=== PATIENT | female | born 1960 | race Caucasian/White ===

== ENCOUNTER → 2018-10-23 11:42 | Outpatient (CLI) | payer BC, SELFPAY ==
--- NOTE | 2018-10-23 11:52 | XR_ITS ---
XR chest 2V HISTORY: Left-sided chest pain, smoker ITS.REASON: PNEUMONIA ORDERING PHYSICIAN: Wendy Lala PATIENT AGE: 58 years COMPARISON: 11/07/2016 FINDINGS: The cardiomediastinal silhouette and pulmonary vascularity are within normal limits. The lungs are clear without infiltrates, suspicious nodules, or pleural effusions. There are old left-sided rib fractures No acute bony abnormalities. IMPRESSION: No change with no acute finding
== END ==
LOC: RAD 11:45
PROVIDERS: PCP Nurse Practitioner Family; Visit Provider Nurse Practitioner Family
DX: J18.1 Lobar pneumonia, unspecified organism (principal)
CPT/HCPCS: 71046

== ENCOUNTER → 2019-11-01 11:52 | Outpatient (CLI) | payer BC, SELFPAY ==
--- NOTE | 2019-11-01 | XR_ITS ---
PROCEDURE: XR FOOT LT MIN 3V CLINICAL INDICATION: Foot pain COMPARISON: No exams were available for comparison FINDINGS: No fracture or dislocation. No lytic or blastic change. There is normal mineralization. The joint spaces are well-preserved. No significant degenerative/arthritic changes. No erosive changes evident. Other findings:None. IMPRESSION: No acute findings. Dictated by: El Jackson MD 11/01/2019 12:18 Electronically signed by El Jackson MD in [facility] 11/01/2019 12:18
== END ==
LOC: RAD 11:58
PROVIDERS: PCP Family Medicine; Visit Provider Nurse Practitioner Family
DX: M79.672 Pain in left foot (principal)
CPT/HCPCS: 73630

== ENCOUNTER → 2019-11-12 15:45 | Outpatient (CLI) | payer BC, SELFPAY ==
[2019-11-12 16:43] LABS: Basophils # 0.1 K/mm3 (0-0.2); Basophils % 0.9 % (0.1-2.0); Eosinophils # 0.2 K/mm3 (0.0-0.4); Eosinophils % 2.6 % (0.1-12.0); Hemoglobin 14.6 g/dL (12.2-16.2); Lymphocytes # 1.8 K/mm3 (0.7-4.5); Lymphocytes % 26.4 % (10-50); Mean Corpuscular HGB Conc 33.1 g/dL (31.8-35.4); Mean Corpuscular Hemoglobin 30.9 pg (27.0-31.2); Mean Corpuscular Volume 93.1 fl (81-99); Mean Platelet Volume 8.2 fl (7.4-10.4); Monocytes # 0.5 K/mm3 (0.1-1.0); Monocytes % 6.7 % (1.7-9.3); Neutrophils # 4.3 K/mm3 (1.8-7.8); Neutrophils % 63.4 % (37.0-80.0); Platelet Count 247 K/mm3 (142-424); Red Blood Count 4.72 M/mm3 (4.20-5.40); Red Cell Distribution Width 12.4 % (11.5-17.5); White Blood Count 6.8 K/mm3 (4.8-10.8)
[2019-11-12 18:44] LABS: Chloride 103 mmol/L (98-107); Potassium 4.1 mmoL/L (3.5-5.1); Sodium 138 mmol/L (136-145)
[2019-11-12 18:47] LABS: Alanine Aminotransferase 20 U/L (12-78); Albumin Level 3.9 g/dl (3.5-5.0); Albumin/Globulin Ratio 1.6 (1.1-1.8); Alkaline Phosphatase 81 U/L (38-126); Anion Gap 9.1 mEq/L (5-15); Aspartate Amino Transferase 26 U/L (14-36); Bilirubin,Total 0.2 mg/dl (0.2-1.3); Blood Urea Nitrogen 15 mg/dl (7-17); Calcium 8.8 mg/dl (8.4-10.2); Carbon Dioxide 30 mmol/L (22.0-30.0); Estimated Glomerular Filt Rate 74 ml/min (>60); GFR (African American) 89 ML/MIN (>60); Globulin 2.5 g/dL (1.3-3.2); Glucose 77 mg/dl (74-100); Magnesium 2.1 mg/dl (1.6-2.3); Total Protein,Serum 6.4 g/dl (6.3-8.2)
[2019-11-12 19:03] LABS: Free T4 (Free Thyroxine) 1.06 ng/dl (0.78-2.19)
== END ==
PROVIDERS: Visit Provider Nurse Practitioner Family
DX: R42 Dizziness and giddiness (principal); R11.0 Nausea
CPT/HCPCS: 36415; 80053; 83735; 84439; 84443; 85025

== ENCOUNTER → 2019-12-27 09:57 | Outpatient (CLI) | payer BC, SELFPAY ==
--- NOTE | 2019-12-27 10:12 | XR_ITS ---
PROCEDURE: XR WRIST RT MIN 3V CLINICAL INDICATION: SWELLING , PAINFUL WRIST/HAND COMPARISON: No exams were available for comparison FINDINGS: There is no acute fracture dislocation or other focal bony lesion. Joint spaces are preserved. IMPRESSION: No acute findings. Dictated by: Radu Loredo 12/27/2019 10:30 Electronically signed by Radu Loredo in [facility] 12/27/2019 10:30
--- NOTE | 2019-12-27 10:12 | XR_ITS ---
PROCEDURE: XR HAND RT MIN 3V CLINICAL INDICATION: SWELLING , PAINFUL WRIST/HAND COMPARISON: No exams were available for comparison FINDINGS: No fracture or dislocation. There is nonspecific sclerosis of the distal phalanx of the 1st digit. This could represent osteoblastic activity associated with old healed fracture or benign bone island. There is normal mineralization. The joint spaces are well-preserved. No significant degenerative/arthritic changes. No erosive changes evident. Other findings:None. IMPRESSION: No acute findings. Dictated by: Radu Loredo 12/27/2019 10:28 Electronically signed by Radu Loredo in [facility] 12/27/2019 10:28
[2019-12-27 11:11] LABS: Basophils # 0.1 K/mm3 (0-0.2); Basophils % 0.8 % (0.1-2.0); Eosinophils # 0.2 K/mm3 (0.0-0.4); Eosinophils % 2.2 % (0.1-12.0); Hematocrit 45.4 % (37.0-47.0); Lymphocytes # 1.7 K/mm3 (0.7-4.5); Lymphocytes % 19.7 % (10-50); Mean Corpuscular Hemoglobin 30.2 pg (27.0-31.2); Mean Corpuscular Volume 91.4 fl (81-99); Mean Platelet Volume 8.4 fl (7.4-10.4); Monocytes # 0.5 K/mm3 (0.1-1.0); Monocytes % 5.8 % (1.7-9.3); Neutrophils # 6.3 K/mm3 (1.8-7.8); Neutrophils % 71.6 % (37.0-80.0); Platelet Count 240 K/mm3 (142-424); Red Blood Count 4.96 M/mm3 (4.20-5.40); Red Cell Distribution Width 12.2 % (11.5-17.5); White Blood Count 8.8 K/mm3 (4.8-10.8)
[2019-12-27 11:43] LABS: Erythrocyte Sedimentation Rate 14 mm/hr (0-30)
[2019-12-27 11:45] LABS: Uric Acid 3.5 mg/dl (2.5-6.2)
[2019-12-28 07:26] LABS: RA Latex Turbid. 13.4 IU/mL (0.0-13.9)
[2019-12-29 07:48] LABS: Antinuclear Antibodies, IFA Negative (.)
== END ==
LOC: RAD 10:02
PROVIDERS: PCP Nurse Practitioner Family; Visit Provider Nurse Practitioner Family
DX: M79.89 Other specified soft tissue disorders (principal); M25.431 Effusion, right wrist; M25.50 Pain in unspecified joint
CPT/HCPCS: 36415; 73110; 73130; 84550; 85025; 85651; 86038; 86140; 86431

== ENCOUNTER → 2020-01-09 13:09 | Outpatient (CLI) | payer BC, SELFPAY ==
--- NOTE | 2020-01-09 13:13 | CT_ITS ---
PROCEDURE: CT SOFT TISSUE NECK WO CON CLINICAL HISTORY: LYMPHADENOPATHY Infection in the right neck with edema, lymphadenopathy COMPARISON: No exams were available for comparison TECHNIQUE: Oral Contrast: None IV Contrast: None Axial images obtained with sagittal and coronal reformats. All CT scans at the facility use one or more dose reduction, viz: automated exposure control, ma/kV adjustment per patient size (including targeted exams where dose is matched to indication, i.e. head), or iterative reconstruction technique. FINDINGS: There are few scattered small cervical lymph nodes. No dominant adenopathy is evident. No abscess or abnormal fluid collections. Thyroid gland slightly enlarged on both sides. There is a slightly hypodense 18 mm nodule in the left lobe for which ultrasound is suggested for further evaluation. There is some nodularity also of the right thyroid gland. No obvious nasopharyngeal or oral pharyngeal mass. The epiglottis and glottic and subglottic region have an unremarkable appearance. The lung apices are clear. Centrilobular emphysematous changes are present. No acute bony anomalies. There are minimal osteoarthritic changes of the right TMJ. Mild degenerative disc disease is present at C5-C6. IMPRESSION: 1. No dominant adenopathy or abscess evident. Her 2. Mildly enlarged thyroid gland with 18 mm nodule in the left lobe for which ultrasound is suggested for further evaluation. 3. Centrilobular emphysema in the lung apices. Dictated by: El Jackson MD 01/10/2020 08:35 Electronically signed by El Jackson MD in [facility] 01/10/2020 08:35
== END ==
LOC: RAD 13:10
PROVIDERS: PCP Nurse Practitioner Family; Visit Provider Nurse Practitioner Family
DX: R59.0 Localized enlarged lymph nodes (principal)
CPT/HCPCS: 70490

== ENCOUNTER → 2020-05-12 08:44 | Outpatient (CLI) | payer BC, SELFPAY ==
--- NOTE | 2020-05-12 08:50 | US_ITS ---
PROCEDURE: US THYROID CLINICAL INDICATION: THYROID NODULE COMPARISON: No exams were available for comparison FINDINGS: Right lobe: Measures 1.6 x 4.2 x 2.5 cm. There is a small hypoechoic cystic-appearing lesion mid pole with internal echoes measuring 0.7 x 0.3 by 0.6 cm and likely a complex cyst. There is an isoechoic solid nodule mid pole measuring 0.9 by 0.9 x 1.3 cm with spongiform appearance, wider than tall and this is tired rads 2. There is a 2nd hypoechoic oval nodule lower pole measuring 1.6 x 0.9 by 1.3 cm with a somewhat heterogenic appearance but with a smooth border and this likely is aTirads 22. Left lobe: The left lobe measures 1.6 x 4.1 x 1.9 cm. There is a dominant heterogenic nodule mid pole measuring 2.2 x 1.3 by 1.9 cm which is basically isoechoic and smooth wall, wider than tall and this is a ti rads 2 Isthmus: The isthmus measures 0.3 cm. Additional findings: IMPRESSION: Normal-sized gland with dominant solid nodules in each lobe as described above. Dictated by: Dr. Vaughn Menchaca MD 05/12/2020 12:57 Dr. Vaughn Menchaca MD in [facility] 05/12/2020 12:57
== END ==
LOC: RAD 08:45
PROVIDERS: PCP Nurse Practitioner Family; Visit Provider Nurse Practitioner Family
DX: E04.1 Nontoxic single thyroid nodule (principal)
CPT/HCPCS: 76536

== ENCOUNTER → 2020-11-13 15:21 | Outpatient (CLI) | payer BC, SELFPAY | PROVIDERS: PCP Nurse Practitioner Family; Visit Provider Nurse Practitioner Family | DX: Z20.822 Contact with and (suspected) exposure to COVID-19 (principal) | CPT/HCPCS: U0003 ==

== ENCOUNTER → 2021-01-01 09:12 | Outpatient (CLI) | payer BC, SELFPAY ==
[2021-01-01 09:38] LABS: Basophils # 0.1 K/mm3 (0-0.2); Basophils % 1.1 % (0.1-2.0); Eosinophils # 0.2 K/mm3 (0.0-0.4); Eosinophils % 2.5 % (0.1-12.0); Hematocrit 45.4 % (37.0-47.0); Hemoglobin 15.4 g/dL (12.2-16.2); Lymphocytes # 1.5 K/mm3 (0.7-4.5); Lymphocytes % 21.9 % (10-50); Mean Corpuscular HGB Conc 33.8 g/dL (31.8-35.4); Mean Corpuscular Hemoglobin 30.2 pg (27.0-31.2); Mean Corpuscular Volume 89.2 fl (81-99); Monocytes # 0.4 K/mm3 (0.1-1.0); Monocytes % 5.9 % (1.7-9.3); Neutrophils # 4.7 K/mm3 (1.8-7.8); Neutrophils % 68.6 % (37.0-80.0); Platelet Count 202 K/mm3 (142-424); Red Blood Count 5.09 M/mm3 (4.20-5.40); Red Cell Distribution Width 13.2 % (11.5-17.5); White Blood Count 6.9 K/mm3 (4.8-10.8)
[2021-01-01 10:58] LABS: Chloride 107 mmol/L (98-107); Potassium 4.3 mmoL/L (3.5-5.1); Sodium 140 mmol/L (136-145)
[2021-01-01 11:01] LABS: Anion Gap 9.3 mEq/L (5-15); Blood Urea Nitrogen 12 mg/dl (7-17); Calcium 9.2 mg/dl (8.4-10.2); Carbon Dioxide 28 mmol/L (22.0-30.0); Estimated Glomerular Filt Rate 86 ml/min (>60); GFR (African American) 104 ML/MIN (>60); Glucose 91 mg/dl (74-100)
[2021-01-01 11:27] LABS: Coronavirus 19 IgG Antibody Negative (Negative); Coronavirus 19 IgM Antibody Negative (Negative)
== END ==
PROVIDERS: Visit Provider Internal Medicine Cardiovascular Disease
DX: Z01.818 Encounter for other preprocedural examination (principal); Z20.822 Contact with and (suspected) exposure to COVID-19; R07.9 Chest pain, unspecified; R94.31 Abnormal electrocardiogram [ECG] [EKG]
CPT/HCPCS: 80048; 85025; 86328

== ENCOUNTER 2021-01-04 07:54 | Day surgery (SDC) | payer BC, SELFPAY ==
[2021-01-04] VITALS (15 sets, daily range): BP systolic 92–136; BP diastolic 58–91; PULSE 50–84; RESP 12–18; O2SAT 91–99; BMI 26.6
--- NOTE | 2021-01-04 | IR_ITS ---
APPROVED REPORT Patient Location: Outpatient [employer] Specialist: POORNIMA Fernandez RT (R) PROCEDURES Left heart catheterization Left ventriculogram Selective coronary angiogram FFR to the right coronary INDICATION Accelerated angina pectoris, Coronary artery disease Informed consent was obtained prior to the procedure. COMPLICATIONS NONE Estimated Blood Loss: LESS THAN 10 ML TECHNIQUE One percent lidocaine used to anesthetize the right anterior aspect of the wrist. The right radial artery was accessed via the Seldinger technique. A 6 Thai sheath was placed in the right radial artery. 2.5 mg of verapamil, 800 mcg of nitroglycerin, 1mg Lidocaine and 5000 U Heparin were given through the arterial sheath. The trap catheter was also used to perform left heart catheterization, left ventriculogram and selective coronary angiogram. At the end of the diagnostic angiogram therapeutic heparin was administered giving a therapeutic ACT. The Poppa catheter was used to cannulate the right coronary and a BMW wire is placed distally. A [employer] FFR catheter was advanced and adenosine was infused per protocol producing an FFR index of 0.86. Given the sternotomy hemodynamic significance the apparatus was removed the sheath was removed good hemostasis was achieved using TR banding patient was transferred to the postop putting stable addition ANGIOGRAPHIC RESULTS The left main artery Normal The left anterior descending artery As proximal mid vessel 10% luminal irregularities The circumflex artery Nondominant with a mild mid vessel 20 to 30% smooth stenosis The right coronary artery Is a dominant vessel and has proximal hazy 50% stenosis which produced an FFR index of 0.86 The CHAUDHARI ventriculogram reveals Normal 65 The left ventricular end-diastolic pressure 15 mmHg IMPRESSION Coronary disease as described above Moderate disease in the proximal dominant right coronary artery which produced an FFR index of 0.86 which did not meet criteria for percutaneous revascularization Normal ejection fraction Mildly elevated LVEDP PLAN 1. Medical management 2. LDL less than 55 3. Aggressive risk factor modification 4. Avoidance of tobacco products Electronically signed by : Kuldip Patino, 01/04/2021 10:42:18
--- NOTE | 2021-01-04 08:10 | CA_ITS ---
APPROVED REPORT EXAM: Comprehensive 2D, Doppler, and color-flow Echocardiogram Coldfusion: Buffy Valenzuela CRT Ht: 4 ft 11 in Wt: 132lbs BSA: 1.55 BP: 147/81 mmHg Indications: Chest Pressure, Shortness of Breath, abn ekg 2D Dimensions LVOT 1.70 cm (M/F) 1.5-2.5 LVEF (North's) 58.00 % LV Volume 59.00 mL M-Mode Dimensions RVDd 1.30 cm (0.9-2.6) LA Diam 2.70 cm (1.9-4.0) LVDd 4.40 cm (3.5-5.7) Ao Diam 3.40 cm (2.0-3.7) LVDs 3.30 cm (3.5-5.7) AV Cusp 1.90 cm (1.5-2.6) IVSd 1.10 cm (0.6-1.1) PWd 1.20 cm (0.6-1.1) EF (Teich) 49.70% FS 25.00% EDV (Teich) 87.70 mL ESV (Teich) 44.10 mL LV Diastology E/A Ratio 1.30 MED E' 7.02 (< 7 cm/sec) MED A' 6.43 cm/s E'/MED E' Ratio 12.60 (>14) LAT E' 10.40 (<10 cm/sec) LAT A' 6.34 cm/s E/LAT E' Ratio 8.50 (>14) Aortic Valve AoV Peak Neeraj. 124.00 (50-130 cm/s) AO Peak GR. 6.00 mmHg Mitral Valve MV E Max Neeraj. 88.40 (40-130 cm/s) MV A Velocity 67.10 (40-130 cm/s) E/A Ratio 1.30 Pulmonary Valve PA Accel Time 201.00 (>120 msec) Tricuspid Valve TR P. Velocity 227.00 cm/s RAP Estimate 10.00 mmHg RVSP 31.00 mmHg Left Ventricle Left atrium is mildly enlarged, left ventricle is normal size, visually estimated ejection fraction 55% with no regional wall motion abnormality, there is no concentric left ventricular hypertrophy, diastolic parameters are inconclusive. Right Ventricle Right atrium and right ventricle are normal size and contractility. Aortic Valve Aortic valve is minimally thickened and fibrosed, there is no aortic stenosis or aortic insufficiency. Mitral Valve Mitral valve grossly normal, there is trace mitral regurgitation. Tricuspid Valve Tricuspid grossly normal, there is mild tricuspid regurgitation, calculated right ventricular systolic pressure is 40 mmHg. Pulmonic Valve Pulmonic valve is poorly visualized. Great Vessels Aortic root is normal size. Pericardium No significant pericardial effusion noted. Conclusion 1. Mildly enlarged left atrium, normal left ventricular size, visually estimated ejection fraction 55% with no regional wall motion abnormality, diastolic parameters are inconclusive. 2. Trace mitral and mild tricuspid regurgitation, calculated right ventricular systolic pressure is 40 mmHg. 3. No significant pericardial effusion noted. Electronically signed by : Saturnino Tom, 01/04/2021 21:34:46
[2021-01-04 13:24] LABS: CATHL Activated Clotting Time 357 SEC (74-125)
== END 2021-01-04 14:43 | disposition home or self-care (01) ==
LOC: CATHLAB 07:54
PROVIDERS: PCP Nurse Practitioner Family; Visit Provider Internal Medicine
DX: R07.9 Chest pain, unspecified (principal); R94.31 Abnormal electrocardiogram [ECG] [EKG]; I25.118 Atherosclerotic heart disease of native coronary artery with other forms of angina pectoris; Z72.0 Tobacco use; I10 Essential (primary) hypertension; Z79.82 Long term (current) use of aspirin; Z79.899 Other long term (current) drug therapy
CPT/HCPCS: 85347; 93306; 93458; 93571; 99152; C1725; C1769; J0153; J1644; Q9967

== ENCOUNTER → 2021-01-28 12:00 | Outpatient (CLI) | payer BC, SELFPAY | PROVIDERS: PCP Nurse Practitioner Family; Visit Provider Internal Medicine Cardiovascular Disease | DX: G47.30 Sleep apnea, unspecified (principal); R06.83 Snoring; R40.0 Somnolence; R63.4 Abnormal weight loss | CPT/HCPCS: G0399 ==

== ENCOUNTER → 2021-07-23 12:18 | Outpatient (CLI) | payer BC, SELFPAY ==
--- NOTE | 2021-07-23 12:26 | XR_ITS ---
PROCEDURE INFORMATION: Exam: XR Right Finger(s) Exam date and time: 07/23/2021 12:26 PM Age: 61 years old Clinical indication: Other: Decreased rom RT hand TECHNIQUE: Imaging protocol: XR Right fingers. Views: Minimum 2 views. COMPARISON: CR XR HAND RT MIN 3V 12/27/2019 10:13 AM FINDINGS: Bones/joints: There is no evidence of acute fracture.There is no evidence of malalignment or dislocation. Soft tissues: Normal. IMPRESSION: There is no evidence of acute fracture.There is no evidence of malalignment or dislocation.
== END ==
PROVIDERS: PCP Family Medicine; Visit Provider Nurse Practitioner Family
DX: M25.641 Stiffness of right hand, not elsewhere classified (principal)
CPT/HCPCS: 73140

== ENCOUNTER → 2021-07-29 10:08 | Outpatient (CLI) | payer BC, SELFPAY ==
[2021-07-29 11:40] LABS: Chloride 104 mmol/L (98-107); Sodium 139 mmol/L (136-145)
[2021-07-29 11:41] LABS: Potassium 4.8 mmoL/L (3.5-5.1)
[2021-07-29 11:43] LABS: Blood Urea Nitrogen 7 mg/dl (7-17); Estimated Glomerular Filt Rate 86 ml/min (>60); GFR (African American) 104 ML/MIN (>60)
[2021-07-29 11:44] LABS: Anion Gap 7.8 mEq/L (5-15); Carbon Dioxide 32 mmol/L (22.0-30.0); Glucose 81 mg/dl (74-100)
== END ==
PROVIDERS: Visit Provider Internal Medicine Cardiovascular Disease
DX: I25.10 Atherosclerotic heart disease of native coronary artery without angina pectoris (principal); R06.00 Dyspnea, unspecified; I10 Essential (primary) hypertension; I27.20 Pulmonary hypertension, unspecified; E78.5 Hyperlipidemia, unspecified; R06.83 Snoring; R40.0 Somnolence; R63.5 Abnormal weight gain; R94.31 Abnormal electrocardiogram [ECG] [EKG]; Z72.0 Tobacco use
CPT/HCPCS: 36415; 80048

== ENCOUNTER → 2021-09-23 20:54 | Outpatient (CLI) | payer BC, SELFPAY | PROVIDERS: Visit Provider Nurse Practitioner Family | DX: Z20.822 Contact with and (suspected) exposure to COVID-19 (principal) | CPT/HCPCS: C9803; U0003; U0005 ==

== ENCOUNTER → 2021-09-27 14:15 | Outpatient (CLI) | payer BC, SELFPAY | PROVIDERS: PCP Family Medicine; Visit Provider Nurse Practitioner | DX: Z20.822 Contact with and (suspected) exposure to COVID-19 (principal) | CPT/HCPCS: C9803; U0003; U0005 ==

== ENCOUNTER 2021-10-12 08:53 | Emergency (ER) | payer BC, SELFPAY ==
--- NOTE | 2021-10-12 09:12 | ECG_ITS ---
APPROVED REPORT Exam: Resting ECG HR:64 bpm ECG Measurements Heart Rate 64 AXES NH 132 P 80 QRSd 72 QRS 83 QT 396 T 44 QTc 408 Conclusion Normal sinus rhythm Normal ECG Electronically signed by : Jeremy Ayoub MD 10/12/2021 19:53:56
[2021-10-12 09:13] VITALS: BMI 27.0
--- NOTE | 2021-10-12 09:14 | HMH.EDGENADL ---
ED Disposition Clinical Impression: Chest wall pain, Pleurodynia Disposition: Home, Self-Care Condition on Discharge: Good Instructions: DI for Pleurisy, DI for Atypical Chest Pain Additional Instructions: Ibuprofen for pain. Follow-up with primary care provider next week if not improved. A pulmonary nodule (spot on the lung) was discovered during your evaluation today. It is recommended that you follow-up with a primary care provider for further evaluation. Additional instructions for CHEST PAIN: Return immediately if worsening chest pain, vomiting, shortness of breath, fever, coughing of blood. Referrals: Wendy Lala APRN [Primary Care Provider] - - Critical Care Critical Care Time: No Attestation: On 10/12/21, the high probability of a clinically significant, sudden or life threatening deterioration of the following system(s) required my full and direct attention, intervention and personal management. The time I documented below is in addition to time spent performing reported procedures but includes the following listed in this critical care notation. Medical Decision Making - Medical Records Medical records reviewed: Yes: I reviewed the patient's medical records. MR Comment: Reviewed prior cardiac cath results, see below. Reviewed [facility] clinic visit 09/23/2021. Diagnosed with respiratory infection. Treated with injections of Rocephin and Decadron and prescription of Zithromax. - Gregory Inquiry Pt receiving controlled substance: No Vital Signs: 10/12/21 09:46 10/12/21 10:00 10/12/21 10:30 Temperature 98.3 F Temperature Source Oral Pulse Rate 58 L 55 L Respiratory Rate 20 16 16 Blood Pressure 124/72 133/63 02 Sat by Pulse Oximetry 97 95 95 Oxygen Delivery Method Room Air Room Air 10/12/21 11:00 Temperature Temperature Source Pulse Rate 54 L Respiratory Rate 18 Blood Pressure 120/83 02 Sat by Pulse Oximetry 90 L Oxygen Delivery Method - Lab Data Lab Results 10/12/21 09:45: WBC 6.9, RBC 5.18, Hgb 15.7, Hct 49.5 H, MCV 95.6, MCH 30.4, MCHC 31.8, RDW 13.3, Plt Count 256, MPV 9.1, Neut % (Auto) 68.8, Lymph % (Auto) 20.3, Vermilion % (Auto) 7.2, Eos % (Auto) 2.6, Baso % (Auto) 1.2, Neut # (Auto) 4.7, Lymph # (Auto) 1.4, Vermilion # (Auto) 0.5, Eos # (Auto) 0.2, Baso # (Auto) 0.1 10/12/21 09:45: D-Dimer 0.66 H 10/12/21 09:45: Sodium 140, Potassium 3.8, Chloride 101, Carbon Dioxide 33 H, Anion Gap 9.8, BUN 6 L, Creatinine 0.80, Estimated Creat Clear 73, Estimated GFR 73, Est GFR ( Amer) 89, Glucose 80, Calcium 9.4, Troponin I < 0.01 Result diagrams: 10/12/21 09:45 10/12/21 09:45 Orders (Tests/Meds): ED MEDICATIONS Discontinued Medications Generic Name Dose Route Start Last Admin Trade Name Freq PRN Reason Stop Dose Admin Iopamidol 75 ml 10/12/21 11:27 10/12/21 11:27 Iopamidol-370 (76%);100ml Bottle IV 10/12/21 11:28 75 ml ONCE ONE Administration Sodium Chloride 10 ml 10/12/21 11:27 10/12/21 11:27 Sodium Chloride 0.9% 10ml Syr (Rad Only) IV 10/12/21 11:28 10 ml ONCE ONE Administration Sodium Chloride 50 ml 10/12/21 11:27 10/12/21 11:27 Sodium Chloride 0.9% 50ml Bag IV 10/12/21 11:28 50 ml ONCE ONE Administration ORDERS Category Date Time Status Troponin I Q3H Lab 10/12/21 12:30 Ordered Troponin I Q3H Lab 10/12/21 15:30 Ordered Ordering Physician: Kuldip Patino MD Date of Service: 01/04/21 Procedure(s): CL [facility] w ventricle Accession Number(s): [id number] cc: Wendy Lala APRN; Kuldip Patino MD~ APPROVED REPORT Patient Location: Outpatient Percussion Instructor: POORNIMA Fernandez RT (R) PROCEDURES Left heart catheterization Left ventriculogram Selective coronary angiogram FFR to the right coronary INDICATION Accelerated angina pectoris, Coronary artery disease Informed consent was obtained prior to the procedure. COMPLICATIONS NONE
--- NOTE | 2021-10-12 09:15 | XR_ITS ---
FINAL REPORT CLINICAL HISTORY: SOB COMPARISON: October 23, 2018 FINDINGS: Two views of the chest were obtained. The heart size and pulmonary vascularity are within normal limits. The mediastinum is normal. No acute pulmonary abnormality is identified. There is no pneumothorax. The bony thorax is intact. IMPRESSION: No active cardiopulmonary disease. Reviewed, Interpreted and Dictated by Chucky Anders III, MD Transcribed by Jennifer Epps Authenticated by Chucky Anders III, MD on 10/12/2021 11:29:14 AM [facility]
[2021-10-12 09:46] VITALS: RESP 20; TEMP 36.8; O2SAT 97; BMI 27.0
[2021-10-12 10:00] VITALS: BP 124/72; PULSE 58; RESP 16; O2SAT 95
[2021-10-12 10:04] LABS: Anion Gap 9.8 mEq/L (5-15); Blood Urea Nitrogen 6 mg/dl (7-17); Calcium 9.4 mg/dl (8.4-10.2); Carbon Dioxide 33 mmol/L (22.0-30.0); Chloride 101 mmol/L (98-107); Creatinine Clearance Estimated 73 mL/min (50-200); Estimated Glomerular Filt Rate 73 ml/min (>60); GFR (African American) 89 ML/MIN (>60); Glucose 80 mg/dl (74-100); Potassium 3.8 mmoL/L (3.5-5.1); Sodium 140 mmol/L (136-145)
[2021-10-12 10:05] LABS: Basophils # 0.1 K/mm3 (0-0.2); Basophils % 1.2 % (0.1-2.0); Eosinophils # 0.2 K/mm3 (0.0-0.4); Eosinophils % 2.6 % (0.1-12.0); Hematocrit 49.5 % (37.0-47.0); Hemoglobin 15.7 g/dL (12.2-16.2); Lymphocytes # 1.4 K/mm3 (0.7-4.5); Lymphocytes % 20.3 % (10-50); Mean Corpuscular HGB Conc 31.8 g/dL (31.8-35.4); Mean Corpuscular Hemoglobin 30.4 pg (27.0-31.2); Mean Corpuscular Volume 95.6 fl (81-99); Mean Platelet Volume 9.1 fl (7.4-10.4); Monocytes # 0.5 K/mm3 (0.1-1.0); Monocytes % 7.2 % (1.7-9.3); Neutrophils # 4.7 K/mm3 (1.8-7.8); Neutrophils % 68.8 % (37.0-80.0); Platelet Count 256 K/mm3 (142-424); Red Blood Count 5.18 M/mm3 (4.20-5.40); Red Cell Distribution Width 13.3 % (11.5-17.5); White Blood Count 6.9 K/mm3 (4.8-10.8)
[2021-10-12 10:09] LABS: D-Dimer 0.66 ug/mL (0.0-0.5)
[2021-10-12 10:17] LABS: Troponin I < 0.01 ng/ml (0.00-0.034)
[2021-10-12 10:30] VITALS: BP 133/63; PULSE 55; RESP 16; O2SAT 95
--- NOTE | 2021-10-12 10:30 | CT_ITS ---
FINAL REPORT CLINICAL HISTORY: right lung pain, elev d-dimer FINDINGS: Thin section axial CT images of the chest were obtained with contrast. 3D reformatted images were also obtained. This study was performed with techniques to keep radiation doses as low as reasonably achievable (ALARA). Individualized dose reduction techniques using automated exposure control or adjustment of mA and/or kV according to the patient's size were employed. There is no evidence of pulmonary embolism. There is no evidence of thoracic aortic aneurysm or dissection. There is no evidence of mediastinal or hilar mass or adenopathy. There is mild emphysema. Mild bilateral atelectasis is identified. There are several small nodules in the right lung base, largest measures 5 mm. The patient is status post cholecystectomy. IMPRESSION: No evidence of pulmonary embolism. Several small right lung base nodules. If indicated, consider follow-up CT in 6 months. Reviewed, Interpreted and Dictated by Chucky Anders III, MD Transcribed by Ashtyn Aldana Authenticated by Chucky Anders III, MD on 10/12/2021 11:56:39 AM [facility]
[2021-10-12 11:00] VITALS: BP 120/83; PULSE 54; RESP 18; O2SAT 90
[2021-10-12 12:32] VITALS: BP 123/74; PULSE 78; RESP 16; TEMP 37; O2SAT 98
== END 2021-10-12 12:33 | disposition home or self-care (01) ==
PROVIDERS: Emergency Provider Emergency Medicine; PCP Nurse Practitioner Family
DX: R07.89 Other chest pain (principal); R07.81 Pleurodynia; E78.5 Hyperlipidemia, unspecified; I10 Essential (primary) hypertension; I25.10 Atherosclerotic heart disease of native coronary artery without angina pectoris; F17.210 Nicotine dependence, cigarettes, uncomplicated
CPT/HCPCS: 71046; 71275; 80048; 84484; 85025; 85378; 93005; 96374; 99283; Q9967

== ENCOUNTER → 2021-10-20 13:42 | Outpatient (CLI) | payer BC, SELFPAY | PROVIDERS: Visit Provider Nurse Practitioner | DX: Z20.822 Contact with and (suspected) exposure to COVID-19 (principal) | CPT/HCPCS: C9803; U0003; U0005 ==

== ENCOUNTER → 2022-02-28 15:05 | Outpatient (CLI) | payer BC, SELFPAY ==
--- NOTE | 2022-02-28 15:14 | XR_ITS ---
FINAL REPORT CLINICAL HISTORY: ACUTE COUGH Patient states cough, congestion, chest pain for a year. Smoker, no chest surgeries. COMPARISON: October 12, 2021 FINDINGS: Two views of the chest were obtained. The heart size and pulmonary vascularity are within normal limits. The mediastinum is normal. No acute pulmonary abnormality is identified. There is no pneumothorax. The bony thorax is intact. IMPRESSION: No active cardiopulmonary disease. Reviewed, Interpreted and Dictated by Chucky Anders III, MD Transcribed by Jennifer Epps Authenticated and [facility]
== END ==
LOC: RAD 15:07
PROVIDERS: PCP Nurse Practitioner Family; Visit Provider Nurse Practitioner Family
DX: R05.1 Acute cough (principal)
CPT/HCPCS: 71046

== ENCOUNTER → 2022-03-16 14:03 | Outpatient (CLI) | payer BC, SELFPAY ==
[2022-03-16 15:00] LABS: Basophils # 0.2 K/mm3 (0-0.2); Basophils % 1.7 % (0.1-2.0); Eosinophils # 0.2 K/mm3 (0.0-0.4); Eosinophils % 2.3 % (0.1-12.0); Hematocrit 47.3 % (37.0-47.0); Hemoglobin 15.6 g/dL (12.2-16.2); Lymphocytes # 1.6 K/mm3 (0.7-4.5); Lymphocytes % 18.1 % (10-50); Mean Corpuscular HGB Conc 32.9 g/dL (31.8-35.4); Mean Corpuscular Hemoglobin 31.1 pg (27.0-31.2); Mean Corpuscular Volume 94.4 fl (81-99); Mean Platelet Volume 8.9 fl (7.4-10.4); Monocytes # 0.5 K/mm3 (0.1-1.0); Neutrophils # 6.5 K/mm3 (1.8-7.8); Neutrophils % 72.9 % (37.0-80.0); Platelet Count 239 K/mm3 (142-424); Red Blood Count 5.01 M/mm3 (4.20-5.40); Red Cell Distribution Width 13.5 % (11.5-17.5); White Blood Count 8.9 K/mm3 (4.8-10.8)
[2022-03-16 15:51] LABS: Chloride 102 mmol/L (98-107); Sodium 137 mmol/L (136-145)
[2022-03-16 15:53] LABS: Bilirubin,Unconjugated 0.4 mg/dL (0.0-1.1); Blood Urea Nitrogen 9 mg/dl (7-17); Estimated Glomerular Filt Rate 73 ml/min (>60); GFR (African American) 89 ML/MIN (>60)
[2022-03-16 15:54] LABS: Alanine Aminotransferase 20 U/L (12-78); Albumin Level 4.2 g/dl (3.5-5.0); Alkaline Phosphatase 84 U/L (38-126); Aspartate Amino Transferase 24 U/L (14-36); Bilirubin,Indirect 0.5 mg/dL (0.0-0.9); Bilirubin,Total 0.5 mg/dl (0.2-1.3); Calcium 9.1 mg/dl (8.4-10.2); Carbon Dioxide 30 mmol/L (22.0-30.0); Cholesterol 122 mg/dl (140-200); Glucose 148 mg/dl (74-100); Magnesium 1.8 mg/dl (1.6-2.3); Total Protein,Serum 6.6 g/dl (6.3-8.2); Triglycerides 87 mg/dl (30-150); VLDL Cholesterol 17 mg/dL (0-40)
[2022-03-16 15:55] LABS: Chol/HDL Ratio 2.2 (1-3.5); HDL Cholesterol 55 mg/dl (40-60)
[2022-03-16 16:05] LABS: Direct LDL Cholesterol 53.39 mg/dL (100-129)
[2022-03-16 16:10] LABS: Free T4 (Free Thyroxine) 1.07 ng/dl (0.78-2.19)
[2022-03-16 16:25] LABS: Thyroid Stimulating Hormone 0.62 uIU/mL (0.465-4.68)
== END ==
PROVIDERS: PCP Nurse Practitioner Family; Visit Provider Nurse Practitioner
DX: R06.00 Dyspnea, unspecified (principal); I25.10 Atherosclerotic heart disease of native coronary artery without angina pectoris; I11.9 Hypertensive heart disease without heart failure; I27.20 Pulmonary hypertension, unspecified; E78.2 Mixed hyperlipidemia; I63.9 Cerebral infarction, unspecified; E11.9 Type 2 diabetes mellitus without complications; R94.31 Abnormal electrocardiogram [ECG] [EKG]; Z72.0 Tobacco use
CPT/HCPCS: 36415; 80048; 80061; 80076; 83735; 84439; 84443; 85025

== ENCOUNTER → 2022-05-10 07:57 | Outpatient (CLI) | payer BC, SELFPAY ==
[2022-05-10 07:25] VITALS: PULSE 74; PULSE 80
== END ==
LOC: RT 07:58
PROVIDERS: PCP Family Medicine; Visit Provider Nurse Practitioner Family
DX: R05.1 Acute cough (principal)
CPT/HCPCS: 94060; 94640

== ENCOUNTER → 2023-06-02 11:36 | Outpatient (CLI) | payer BC, SELFPAY ==
--- NOTE | 2023-06-02 | CA_ITS ---
APPROVED REPORT Exam: Pharmacologic Technologist: Brianna Madrigal, Ht: 4 ft 11 in Wt: 132 lbs BSA: 1.55 m2 HR: 56 bpm BP: 111/67 mmHg Rhythm: SINUS BRADYCARDIA Medical History Medical History: HTN, Hyperlipidemia Medications: Aspirin,,,,, Losartan,,,,, Metoprolol Succinate,,,,, Albuterol,,,,, RoSUVASTATIN,,,,, AZITHROMYCIN,,,,, Metnylprednisone,,,,, Allergies: CODEINE Cardiac Risk Factors: HTN, Hyperlipidemia, Smoking Stress Test Details Test: LEXISCAN HR Resting HR: 62 bpm Max Heart Rate (APMHR): 160 bpm Max HR Achieved: 97 bpm Target HR (85% APMHR): 136 bpm % of APMHR: 61 Recovery HR: 76 bpm BP Resting BP: 111/67 mmHg Max BP: 122/63 mmHg Recovery BP: 108.0/61.0 mmHg ECG Resting ECG: SINUS BRADYCARDIA Stress ECG: NO ST CHANGES Arrhythmia: PACs Clinical Exercise duration: 04:01 min Highest Stage Achieved: Stress ECG Conclusion PT HAD SOA, AND GENERALIZED WEAKNESS NO CP FREQUENT PACS NO SIGNIFICANT ST CHANGES UNREMARKABLE LEXISCAN STRESS MYOVIEW IMAGES REPORTED SEPARATELY Test Summary REST . . . . . . . Resting REST 03:48 . . 62 . 111/ 67 . . Stage 1 01:00 . . 80 . . . . Stage 2 01:00 . . 87 . 122/ 63 . . Stage 3 01:00 . . 83 . 117/ 66 . . Stage 4 01:00 . . 88 . 108/ 69 . . Stage 4 01:01 . . 87 . 108/ 69 . Stop exercise at 04:01 RECOVERY 01:00 . . 71 . . . . RECOVERY 02:00 . . 74 . 109/ 64 . . RECOVERY 03:00 . . 76 . 109/ 64 . . RECOVERY 03:59 . . 80 . 108/ 61 . . Electronically signed by : Nelia Zaidi, 06/14/2023 00:23:55
--- NOTE | 2023-06-02 12:36 | NM_ITS ---
APPROVED REPORT Exam: Nuclear Stress Test Indication: TOB USE, C.P., SOB, PALPITATIONS, FATIGUE Patient Location: Outpatient Stress Tech: Brianna Gaxiola [place] Tech:Maite Sanabria, ARRT RT(R)(N) Ht: 4 ft 11 in Wt: 132 lbs Bra Size: B HR: 62 bpm BP: 111/67 mmHg BSA: 1.55 m2 Rhythm: NSR TID: 0.91 BMI: 26.6 History: TOB USE, C.P., SOB, PALPITATIONS, FATIGUE Procedure: Patient received 0.4 mg of intravenous Lexiscan, resting heart rate 62 bpm, resting blood pressure 111/67 mmHg, with Lexiscan maximum heart rate achieved was 87 bpm which is % of the maximum predicted heart rate and blood pressure was 122/63 mmHg. With Lexiscan, patient denied any complaint of chest pain. Cardiac Stress and Resting SPECT Images: Cardiac Stress and Resting SPECT images were obtained using technetium 99m Myoview 31.3 mCi stress and 10.38 mCi at rest. Resting and stress imaging in supine and prone positions demonstrate no evidence of fixed or reversible perfusion defects. Gated imaging demonstrates normal global LV systolic function. LVEF is calculated at 55%. Conclusion: No evidence of fixed or reversible perfusion defects. Gated imaging demonstrates normal global LV systolic function. LVEF is calculated at 55%. Electronically signed by : Nelia Zaidi, 06/14/2023 00:25:26
== END ==
LOC: RAD 11:37
PROVIDERS: PCP Nurse Practitioner Family; Visit Provider Physician Assistant
DX: I20.9 Angina pectoris, unspecified (principal); R94.31 Abnormal electrocardiogram [ECG] [EKG]; R07.9 Chest pain, unspecified; I27.20 Pulmonary hypertension, unspecified; I10 Essential (primary) hypertension; I25.10 Atherosclerotic heart disease of native coronary artery without angina pectoris; R06.00 Dyspnea, unspecified; E78.5 Hyperlipidemia, unspecified; Z72.0 Tobacco use
CPT/HCPCS: 78452; 93017; A9502; J2785

== ENCOUNTER → 2023-06-14 16:29 | Outpatient (CLI) | payer BC, SELFPAY ==
[2023-06-14 17:18] LABS: Basophils # 0.1 K/mm3 (0-0.2); Eosinophils # 0.2 K/mm3 (0.0-0.4); Eosinophils % 3.7 % (0.1-12.0); Hematocrit 44.8 % (37.0-47.0); Hemoglobin 14.3 g/dL (12.2-16.2); Lymphocytes # 1.7 K/mm3 (0.7-4.5); Lymphocytes % 31.4 % (10-50); Mean Corpuscular HGB Conc 31.9 g/dL (31.8-35.4); Mean Corpuscular Hemoglobin 28.8 pg (27.0-31.2); Mean Corpuscular Volume 90.2 fl (81-99); Mean Platelet Volume 8.9 fl (7.4-10.4); Monocytes # 0.3 K/mm3 (0.1-1.0); Monocytes % 6.3 % (1.7-9.3); Neutrophils # 3.1 K/mm3 (1.8-7.8); Neutrophils % 57.6 % (37.0-80.0); Platelet Count 222 K/mm3 (142-424); Red Blood Count 4.97 M/mm3 (4.20-5.40); Red Cell Distribution Width 13.1 % (11.5-17.5); White Blood Count 5.3 K/mm3 (4.8-10.8)
[2023-06-14 17:53] LABS: Chloride 107 mmol/L (98-107)
[2023-06-14 17:54] LABS: Potassium 4.2 mmoL/L (3.5-5.1); Sodium 142 mmol/L (136-145)
[2023-06-14 17:56] LABS: Alanine Aminotransferase 26 U/L (12-78); Alkaline Phosphatase 79 U/L (38-126); Anion Gap 10.2 mEq/L (5-15); Aspartate Amino Transferase 27 U/L (14-36); Bilirubin,Direct 0.2 mg/dl (0.0-0.4); Bilirubin,Total 0.2 mg/dl (0.2-1.3); Blood Urea Nitrogen 11 mg/dl (7-17); Carbon Dioxide 29 mmol/L (22.0-30.0); Cholesterol 101 mg/dl (140-200); Estimated Glomerular Filt Rate 64 ml/min (>60); GFR (African American) 77 ML/MIN (>60); Glucose 98 mg/dl (74-100); Triglycerides 145 mg/dl (30-150); VLDL Cholesterol 29 mg/dL (0-40)
[2023-06-14 17:57] LABS: Albumin Level 3.6 g/dl (3.5-5.0); Calcium 8.7 mg/dl (8.4-10.2); Chol/HDL Ratio 2.2 (1-3.5); HDL Cholesterol 45 mg/dl (40-60)
[2023-06-14 18:08] LABS: Direct LDL Cholesterol 44.28 mg/dL (100-129)
[2023-06-14 18:13] LABS: Free T4 (Free Thyroxine) 0.99 ng/dl (0.78-2.19)
== END ==
PROVIDERS: PCP Nurse Practitioner Family; Visit Provider Physician Assistant
DX: I25.10 Atherosclerotic heart disease of native coronary artery without angina pectoris (principal); R06.00 Dyspnea, unspecified; E78.5 Hyperlipidemia, unspecified; R94.31 Abnormal electrocardiogram [ECG] [EKG]; Z72.0 Tobacco use; I10 Essential (primary) hypertension
CPT/HCPCS: 80048; 80061; 80076; 83735; 84439; 84443; 85025

== ENCOUNTER → 2023-06-19 13:43 | Outpatient (CLI) | payer BC, SELFPAY ==
--- NOTE | 2023-06-19 13:56 | CA_ITS ---
APPROVED REPORT EXAM: Comprehensive 2D, Doppler, and color-flow Echocardiogram General Intern: Buffy Valenzuela CRT Ht: 4 ft 11 in Wt: 132lbs BSA: 1.55 BP: 125/83 mmHg Indications: Abnormal ECG, Chest Pain, Shortness of Breath, Hyperlipidemia, Hypertension/HDD 2D Dimensions LVOT 1.76 cm (M/F) 1.5-2.5 LA Volume 23.60 mL LA Volume Index 14.90 mL/m2 (M/F) 16-34 M-Mode Dimensions RVDd 2.24 cm (0.9-2.6) LA Diam 2.89 cm (1.9-4.0) LVDd 4.53 cm (3.5-5.7) Ao Diam 3.29 cm (2.0-3.7) LVDs 3.11 cm (3.5-5.7) IVSd 0.78 cm (0.6-1.1) PWd 0.93 cm (0.6-1.1) EF (Teich) 59.30% FS 31.30% EDV (Teich) 93.90 mL TAPSE 1.98 (<1.7) ESV (Teich) 38.20 mL LV Diastology MED E' 7.50 (< 7 cm/sec) MED A' 10.50 cm/s LAT E' 11.30 (<10 cm/sec) LAT A' 8.70 cm/s Aortic Valve AO Peak GR. 7.40 mmHg Pulmonary Valve PV Peak Velocity 122.00 (50-150 cm/s) Tricuspid Valve TR P. Velocity 326.00 cm/s Left Ventricle The left ventricle is normal size. The left ventricular systolic function is normal. The left ventricular ejection fraction is within the normal range. There is normal left ventricular wall thickness. There is normal LV segmental wall motion. Normal diastolic function. LVEF is 55%. Right Ventricle The right ventricle is normal size. The right ventricular systolic function is normal. Atria The left atrium size is normal. The right atrium size is normal. There is no Doppler evidence of interatrial shunt. Aortic Valve The aortic valve opens well. There is no aortic valvular stenosis. No aortic regurgitation is present. Mitral Valve Mitral valve is normal in structure. No evidence of mitral valve stenosis. There is no mitral valve regurgitation noted. Tricuspid Valve The tricuspid valve leaflets are thin and pliable. Trace tricuspid regurgitation. There is insufficient TR jet to estimate RVSP. Pulmonic Valve The pulmonary valve is normal in structure. Trace pulmonic regurgitation. Great Vessels The aortic root is normal in size. The ascending aorta is normal in size. IVC is normal in size and collapses >50% with inspiration. Pericardium There is no pericardial effusion. Other Information Study Quality: Fair Conclusion Normal biventricular systolic function. No significant valvular stenosis or regurgitation. Electronically signed by : Nelia Zaidi MD 06/22/2023 23:59:53
== END ==
LOC: RT 13:44
PROVIDERS: PCP Nurse Practitioner Family; Visit Provider Physician Assistant
DX: R06.00 Dyspnea, unspecified (principal); R07.9 Chest pain, unspecified; I20.8 Other forms of angina pectoris; I27.20 Pulmonary hypertension, unspecified; I10 Essential (primary) hypertension; E78.5 Hyperlipidemia, unspecified; R94.31 Abnormal electrocardiogram [ECG] [EKG]; Z72.0 Tobacco use
CPT/HCPCS: 93306

== ENCOUNTER 2023-10-24 16:59 | Emergency (ER) | payer BC, SELFPAY ==
[2023-10-24 17:15] VITALS: BP 124/74; PULSE 83; RESP 19; TEMP 36.8; O2SAT 93; BMI 25.7
--- NOTE | 2023-10-24 17:31 | ED_ITS ---
Discharge Plan Disposition Patient Disposition: Home, Self-Care Condition: Good Prescriptions Prescriptions: New azithromycin [Zithromax Z-Juanpablo] 250 mg tablet See Rx Instructions .ROUTE .COMPLEX 5 Days Qty: 6 0RF Rx Instructions: For 250 mg dose pack: take 500 mg today (day 1), then 250 mg for 4 days (days 2-5) prednisone [prednisone] 20 mg tablet 20 mg PO BID 5 Days Qty: 10 0RF promethazine-DM 6.25-15 mg/5 mL syrup 5 ml PO Q6H PRN (Reason: cough) Qty: 118 0RF No Action amlodipine [Norvasc] 2.5 mg tablet 2.5 mg PO DAILY Qty: 30 11RF aspirin [Adult Low Dose Aspirin] 81 mg tablet,delayed release (DR/EC) 81 mg PO DAILY albuterol sulfate 90 mcg/actuation HFA aerosol inhaler 1 puff INHALATION ONCE PRN losartan 50 mg tablet See Rx Instructions .ROUTE .COMPLEX Qty: 90 1RF Dose Instruction: TAKE ONE TABLET BY MOUTH ONCE A DAY Rx Instructions: TAKE ONE TABLET BY MOUTH ONCE A DAY metoprolol succinate 25 mg tablet extended release 24 hr See Rx Instructions .ROUTE .COMPLEX Qty: 90 1RF Dose Instruction: TAKE ONE TABLET BY MOUTH ONCE A DAY Rx Instructions: TAKE ONE TABLET BY MOUTH ONCE A DAY rosuvastatin 20 mg tablet See Rx Instructions .ROUTE .COMPLEX Qty: 90 1RF Dose Instruction: TAKE ONE TABLET BY MOUTH ONCE A DAY Rx Instructions: TAKE ONE TABLET BY MOUTH ONCE A DAY Referrals Follow up/Referrals: Maite Faustin APRN [Primary Care Provider] - See instructions Activity Restrictions/Add. Instructions Additional Instructions/Restrictions: * Start antibiotic today. Be sure to complete entire prescription even if feeling better * Monitor temp. Tylenol every 4 hours as needed and / or ibuprofen every 6 hours as needed ( As long as your primary care physician has told you that it ok to take both. For fever/aches/pains ER if no less than 101 despite Tylenol or Motrin * Humidifier/vaporizer or hot steamy shower * Inhaler as prescribed every 4-6 hours as needed like we discussed. If unsure how to use it, ask pharmacist to demonstrate how. Should help open airways and improve cough, wheezing, and shortness of breath * *Promethazine DM cough syrup will cause drowsiness. Use only at night. No driving, operating machinery or caring for small children after taking it *Start Oral Prednisone tomorrow. Helps with inflammation therefore, cough and wheezing. Follow directions on the package. Reviewed side effects. Patient reports taking them before. Follow up IMMEDIATELY for new or worsening of symptoms OR no noticeable improvement over the next 48-72 hours. 911 immediately for any life threatening symptoms such as chest pain or difficulty breathing Clinical Impressions Clinical Impression: Bronchitis Instructions Patient Instructions: Sore Throat, Cough Discharge ED Provider: Isabella Zayas [facility] [place] HPI General Stated complaint: sore throat, nerissa Mode of Arrival: Ambulatory Source of Information: Patient Limitations: No Limitations Time Seen by Provider: 10/24/23 17:31 Description of Symptoms (Recalled from Triage Doc. by RN): PATIENT C/O SORE THROAT, COUGH, AND SOA X 2 DAYS HEENT Symptoms (Recalled from RN notes): Yes Resp Symptoms (Recalled from RN notes): Yes Skin Symptoms (Recalled from RN notes): No MS Symptoms (Recalled from RN notes): No Functional Status (Recalled from RN notes): WNL History of Present Illness Provider Complaint: Patient states that for the last couple of days she has been having sore throat and dry cough States that at times she is coughing so much it feels like she gets SOA States that she is an everyday smoker and has COPD States that she gets bronchitis frequently and feels like she needed to come in and get something before it got worse Related Data Home Medications Medication Instructions Recorded Confirmed aspirin 81 mg tablet,delayed 81 mg PO DAILY Cholesterol 12/11/20 08/03/23 release (Adult Low Dose Aspirin) albuterol sulfate 90 mcg/actuation 1 puff inhalation ONCE PRN 07/29/21 08/03/23 aerosol inhaler Previous Rx's Medication Instructions Recorded losartan 50 mg tablet See Rx Instructions .Route 04/11/23 .COMPLEX #90 tabs metoprolol succinate 25 mg See Rx Instructions .Route 04/11/23 tablet,extended release 24 hr .COMPLEX #90 tabs rosuvastatin 20 mg tablet See Rx Instructions .Route 04/11/23 .COMPLEX #90 tabs amlodipine 2.5 mg tablet (Norvasc) 2.5 mg PO DAILY #30 tabs 06/29/23 azithromycin 250 mg tablet See Rx Instructions PO .COMPLEX 5 10/24/23 (Zithromax Z-Juanpablo) days #6 tabs prednisone 20 mg tablet 20 mg PO BID 5 days #10 tabs 10/24/23 promethazine-DM 6.25 mg-15 mg/5 mL 5 ml PO Q6H PRN cough #118 mL 10/24/23 oral syrup Allergies Allergy/AdvReac Type Severity Reaction Status Date / Time codeine [CODEINE] Allergy Unknown Verified 08/03/23 09:31 Worker's Comp Is this a Worker's Comp case?: No [facility] Disclaimer: The information contained in this section may have been updated after the patient was seen, as this information can be updated by other users. Medical History Chest pain Social History Smoking Status: Current every day smoker tobacco type: cigarettes packs per day: 2 second hand exposure: Yes alcohol intake: never substance use type: denies use current occupational status: employed Travel in the last 8 weeks: None household members: family housing: house current occupational exposures/hazards: No caffeine: Yes ROS Obtained: Yes All systems reviewed & no additional complaints except as documented and Yes Systems reviewed as appropriate & no additional complaints except as documented Constitutional Constitutional: Reports system reviewed and no additional complaints, except as documented and Reports as per HPI ENT Ears, Nose, Mouth, and Throat: Reports system reviewed and no additional complaints, except as documented, Reports as per HPI and Reports sore throat Cardiovascular Cardiovascular: Reports system reviewed and no additional complaints, except as documented and Reports as per HPI Respiratory Respiratory: Reports system reviewed and no additional complaints, except as documented, Reports as per HPI, Reports shortness of breath (at times after coughing episode), Reports chest congestion and Reports cough Physical Exam General General appearance: alert and in no apparent distress ENT ENT exam: Present mucous membranes moist Expanded ENT Exam Throat exam: Present tonsillar erythema Respiratory Respiratory exam: Present normal lung sounds bilaterally; Absent respiratory distress or wheezes Cardiovascular Cardiovascular exam: Present regular rate, normal rhythm and normal heart sounds Neurological Exam Neurological exam: Present alert, oriented X3 and normal gait Medical Decision Making Gregory Inquiry Pt receiving controlled substance: No Gregory was queried for this patient: No Vital Signs: 10/24/23 17:15 Temperature 98.2 F Temperature Source Oral Pulse Rate [Right Brachial] 83 Respiratory Rate 19 Blood Pressure [Right Arm] 124/74 Blood Pressure Mean [Right Arm] 90 Blood Pressure Source [Right Arm] Automatic Cuff Blood Pressure Position [Right Arm] Sitting 02 Sat by Pulse Oximetry 93 L Oxygen Delivery Method Room Air Lab Data Lab results reviewed: Yes I reviewed the patient's lab results. Medical Decision Narrative: discussed CXR patient declined at this time
[2023-10-24 17:37] LABS: UTC Strep Screen (Rapid) Negative (Negative)
[2023-10-24] MEDS: METHYLPREDNISOLONE SOD SUCC 125MG VIAL 125 MG IM (17:50)
[2023-10-24] MEDS: cefTRIAXone 1GM VIAL 1 GM IM (17:50)
[2023-10-24] MEDS: LIDOCAINE 1% 5ML PF VIAL IM (17:50)
[2023-10-24 18:00] VITALS: BP 124/74; PULSE 83; RESP 19; TEMP 36.8; O2SAT 95
== END 2023-10-24 18:06 | disposition home or self-care (01) ==
PROVIDERS: Emergency Provider Nurse Practitioner; PCP Nurse Practitioner Family
DX: J20.9 Acute bronchitis, unspecified (principal); R05.9 Cough, unspecified; R07.0 Pain in throat; R09.89 Other specified symptoms and signs involving the circulatory and respiratory systems; F17.210 Nicotine dependence, cigarettes, uncomplicated; J44.9 Chronic obstructive pulmonary disease, unspecified
CPT/HCPCS: 87880; 96372; 99204; 99212; G0463; J0696

== ENCOUNTER 2023-11-09 08:35 | Emergency (ER) | payer BC, SELFPAY ==
[2023-11-09 08:40] VITALS: BP 101/66; PULSE 70; RESP 18; TEMP 36.6; O2SAT 95; BMI 26.0
--- NOTE | 2023-11-09 08:55 | EXP.UTC ---
Discharge Plan Disposition Patient Disposition: Home, Self-Care Condition: Good Prescriptions Prescriptions: New methylprednisolone 4 mg Tablets,Dose Pack 4 mg PO DIRECTED 6 Days Qty: 21 0RF Rx Instructions: Take 1 pack as directed for 6 days guaifenesin [Mucinex] 600 mg tablet extended release 12hr 600 - 1,200 mg PO BIDP PRN (Reason: Congestion) Qty: 30 0RF benzonatate [benzonatate] 100 mg capsule 100 mg PO TIDP PRN (Reason: Cough) Qty: 30 0RF cefdinir 300 mg capsule 300 mg PO BID Qty: 20 0RF No Action nitroglycerin 0.4 mg tablet, sublingual 0.4 mg sublingual Q5-15M PRN (Reason: chest pain) Qty: 30 0RF Rx Instructions: do not exceed 3 doses per episode aspirin [Adult Low Dose Aspirin] 81 mg tablet,delayed release (DR/EC) 81 mg PO DAILY albuterol sulfate 90 mcg/actuation HFA aerosol inhaler 1 puff INHALATION ONCE PRN (Reason: Wheezing) losartan 50 mg tablet See Rx Instructions .ROUTE .COMPLEX Qty: 90 1RF Dose Instruction: TAKE ONE TABLET BY MOUTH ONCE A DAY Rx Instructions: TAKE ONE TABLET BY MOUTH ONCE A DAY metoprolol succinate 25 mg tablet extended release 24 hr See Rx Instructions .ROUTE .COMPLEX Qty: 90 1RF Dose Instruction: TAKE ONE TABLET BY MOUTH ONCE A DAY Rx Instructions: TAKE ONE TABLET BY MOUTH ONCE A DAY rosuvastatin 20 mg tablet See Rx Instructions .ROUTE .COMPLEX Qty: 90 1RF Dose Instruction: TAKE ONE TABLET BY MOUTH ONCE A DAY Rx Instructions: TAKE ONE TABLET BY MOUTH ONCE A DAY amlodipine 2.5 mg tablet 2.5 mg PO DAILY Referrals Follow up/Referrals: Maite Faustin APRN [Primary Care Provider] - See instructions Activity Restrictions/Add. Instructions Additional Instructions/Restrictions: Drink plenty of fluids. Take tylenol or ibuprofen for pain or fever. Take the medications as directed. Follow up with your regular doctor. GO TO THE ER FOR ANY WORSENING SYMPTOMS Don't start the oral steroids until tomorrow since you had the steroid shot here today. Clinical Impressions Clinical Impression: Sinusitis, Bronchitis, Acute viral syndrome Stand Alone Forms Stand Alone Forms: Work/School Release Instructions Patient Instructions: DI for Sinusitis, DI for Viral Syndrome, Ceftriaxone Injection, Dexamethasone Injection Discharge ED Provider: Brijesh Ford [facility] [place] HPI General Stated complaint: fever, body aches, diarreah, Mode of Arrival: Ambulatory Source of Information: Patient Limitations: No Limitations Time Seen by Provider: 11/09/23 08:55 Description of Symptoms (Recalled from Triage Doc. by RN): Pt's symptoms are chills, fever, body aches, and diarrhea. She was exposed to flu and stomach virus. HEENT Symptoms (Recalled from RN notes): Yes Resp Symptoms (Recalled from RN notes): No Skin Symptoms (Recalled from RN notes): No MS Symptoms (Recalled from RN notes): No Functional Status (Recalled from RN notes): n/a History of Present Illness Provider Complaint: She states that for the past 2 days she has had sinus congestion, chest congestion, productive cough, fever, and malaise. She has been exposed to influenza, strep and covid-19. Related Data Home Medications Medication Instructions Recorded Confirmed aspirin 81 mg tablet,delayed 81 mg PO DAILY Cholesterol 12/11/20 11/09/23 release (Adult Low Dose Aspirin) albuterol sulfate 90 mcg/actuation 1 puff inhalation ONCE PRN Wheezing 07/29/21 11/09/23 aerosol inhaler amlodipine 2.5 mg tablet 2.5 mg PO DAILY 11/09/23 11/09/23 Previous Rx's Medication Instructions Recorded losartan 50 mg tablet See Rx Instructions .Route 04/11/23 .COMPLEX #90 tabs metoprolol succinate 25 mg See Rx Instructions .Route 04/11/23 tablet,extended release 24 hr .COMPLEX #90 tabs rosuvastatin 20 mg tablet See Rx Instructions .Route 04/11/23 .COMPLEX #90 tabs nitroglycerin 0.4 mg sublingual 0.4 mg sublingual Q5-15M PRN chest 11/06/23 tablet pain #30 tabs benzonatate 100 mg capsule 100 mg PO TIDP PRN Cough #30 caps 11/09/23 cefdinir 300 mg capsule 300 mg PO BID #20 caps 11/09/23 guaifenesin 600 mg tablet, 600 - 1,200 mg PO BIDP PRN 11/09/23 extended release 12 hr (Mucinex) Congestion #30 tabs methylprednisolone 4 mg tablets in 4 mg PO DIRECTED 6 days #21 tabs 11/09/23 a dose pack Allergies Allergy/AdvReac Type Severity Reaction Status Date / Time codeine [CODEINE] Allergy Unknown Verified 11/09/23 08:51 Worker's Comp Is this a Worker's Comp case?: No [facility] Disclaimer: The information contained in this section may have been updated after the patient was seen, as this information can be updated by other users. Medical History Chest pain Social History Smoking Status: Current every day smoker tobacco type: cigarettes packs per day: 2 second hand exposure: Yes alcohol intake: never substance use type: denies use current occupational status: employed Travel in the last 8 weeks: None household members: family housing: house current occupational exposures/hazards: No caffeine: Yes ROS Obtained: Yes All systems reviewed & no additional complaints except as documented Constitutional Constitutional: Reports as per HPI, Reports chills, Reports fever(s) and Reports poor appetite Eyes Eyes: Reports system reviewed and no additional complaints, except as documented ENT Ears, Nose, Mouth, and Throat: Reports as per HPI Cardiovascular Cardiovascular: Reports system reviewed and no additional complaints, except as documented and Denies chest pain Respiratory Respiratory: Denies shortness of breath, Reports chest congestion, Reports cough, Denies stridor and Denies wheezing Gastrointestinal Gastrointestingal: Reports system reviewed and no additional complaints, except as documented; Denies abdominal pain, diarrhea or vomiting Musculoskeletal Musculoskeletal: Reports system reviewed and no additional complaints, except as documented and Denies arthralgias Integumentary/Breasts Skin/Breast: Reports system reviewed and no additional complaints, except as documented and Denies rash Neurologic Neurologic: Denies paresthesias Allergic/Immunologic Allergic/Immunologic: Denies wheezing Physical Exam General General appearance: alert and in no apparent distress Eye Eye exam: Present normal appearance, PERRL and EOMI ENT ENT exam: Present mucous membranes moist and normal external ear exam Expanded ENT Exam External ear exam: Present normal external inspection TM/Canal exam: Bilateral TM: erythema and bulging Nose exam: Absent sinus tenderness Nasal speculum exam: Bilateral: normal Mouth exam: Present normal external inspection; Absent drooling Teeth exam: Present normal inspection Throat exam: Present tonsillar erythema and tonsillomegaly Neck Neck exam: Present normal inspection, full ROM and trachea midline; Absent tenderness, lymphadenopathy or thyromegaly Chest Chest inspection: Present normal inspection and symmetric chest wall rise; Absent tenderness or rash Respiratory Respiratory exam: Present normal lung sounds bilaterally; Absent respiratory distress, wheezes, stridor or accessory muscle use Cardiovascular Cardiovascular exam: Present regular rate, normal rhythm and normal heart sounds Abdominal Exam Abdominal exam: Present soft; Absent distention, tenderness, guarding, rebound or rigidity Extremities Exam Extremities exam: Present normal inspection, full ROM and normal capillary refill; Absent tenderness or calf tenderness Back Exam Back exam: Present normal inspection and full ROM; Absent tenderness Neurological Exam Neurological exam: Present alert and oriented X3 Psychiatric Psychiatric exam: Present normal affect and normal mood Skin Skin exam: Present warm, dry, intact and normal color Lymphatic Lymphatic Findings: no adenopathy Medical Decision Making Medical Records Medical records reviewed: No I reviewed the patient's medical records. Gregory Inquiry Pt receiving controlled substance: No Vital Signs: 11/09/23 08:40 Temperature 97.8 F Temperature Source Oral Pulse Rate [Right Radial] 70 Respiratory Rate 18 Blood Pressure [Right Arm] 101/66 L Blood Pressure Mean [Right Arm] 77 Blood Pressure Source [Right Arm] Automatic Cuff Blood Pressure Position [Right Arm] Sitting 02 Sat by Pulse Oximetry 95 Oxygen Delivery Method Room Air Lab Data Lab results reviewed: Yes I reviewed the patient's lab results.
[2023-11-09 09:07] LABS: UTC Strep Screen (Rapid) Negative (Negative)
[2023-11-09 09:08] LABS: UTC Influenza A Antigen Negative (Negative); UTC Influenza B Antigen Negative (Negative)
[2023-11-09] MEDS: DEXAMETHASONE 4MG/ML 1ML VIAL 8 MG IM (09:18)
[2023-11-09] MEDS: cefTRIAXone 1GM VIAL 1 GM IM (09:18)
[2023-11-09] MEDS: LIDOCAINE 1% 5ML PF VIAL IM (09:18)
[2023-11-09 09:31] VITALS: BP 101/66; PULSE 70; RESP 18; TEMP 36.6; O2SAT 96
[2023-11-09 09:33] LABS: Influenza A, PCR Not Detected (NotDetected); Influenza B, PCR Not Detected (NotDetected)
[2023-11-09 10:14] LABS: Coronavirus 19, PCR Detected (NotDetected)
== END 2023-11-09 09:31 | disposition home or self-care (01) ==
PROVIDERS: Emergency Provider Nurse Practitioner Family; PCP Nurse Practitioner Family
DX: U07.1 COVID-19 (principal); J20.9 Acute bronchitis, unspecified; J01.90 Acute sinusitis, unspecified; R50.9 Fever, unspecified; R05.8 Other specified cough; R09.81 Nasal congestion; Z20.818 Contact with and (suspected) exposure to other bacterial communicable diseases; F17.210 Nicotine dependence, cigarettes, uncomplicated
CPT/HCPCS: 87636; 87804; 87880; 96372; 99212; 99214; G0463; J0696

== ENCOUNTER 2024-02-06 08:49 | Outpatient (CLI) | payer BC, SELFPAY ==
[2024-02-06 09:15] LABS: Basophils # 0.1 K/mm3 (0-0.2); Basophils % 1.2 % (0.1-2.0); Eosinophils # 0.2 K/mm3 (0.0-0.4); Eosinophils % 3.4 % (0.1-12.0); Hematocrit 45.6 % (37.0-47.0); Hemoglobin 14.6 g/dL (12.2-16.2); Lymphocytes # 1.4 K/mm3 (0.7-4.5); Lymphocytes % 25.9 % (10-50); Mean Corpuscular HGB Conc 32.1 g/dL (31.8-35.4); Mean Corpuscular Hemoglobin 30.6 pg (27.0-31.2); Mean Corpuscular Volume 95.5 fl (81-99); Mean Platelet Volume 8.6 fl (7.4-10.4); Monocytes # 0.3 K/mm3 (0.1-1.0); Monocytes % 6.1 % (1.7-9.3); Neutrophils # 3.4 K/mm3 (1.8-7.8); Neutrophils % 63.5 % (37.0-80.0); Platelet Count 206 K/mm3 (142-424); Red Blood Count 4.78 M/mm3 (4.20-5.40); Red Cell Distribution Width 13.4 % (11.5-17.5); White Blood Count 5.4 K/mm3 (4.8-10.8)
[2024-02-06 10:18] LABS: Alanine Aminotransferase 23 U/L (12-78); Albumin Level 3.8 g/dl (3.5-5.0); Alkaline Phosphatase 77 U/L (38-126); Anion Gap 9.1 mEq/L (5-15); Aspartate Amino Transferase 27 U/L (14-36); Bilirubin,Direct 0.2 mg/dl (0.0-0.4); Bilirubin,Indirect 0.5 mg/dL (0.0-0.9); Bilirubin,Total 0.7 mg/dl (0.2-1.3); Bilirubin,Unconjugated 0.5 mg/dL (0.0-1.1); Blood Urea Nitrogen 10 mg/dl (7-17); Calcium 9.2 mg/dl (8.4-10.2); Carbon Dioxide 33 mmol/L (22.0-30.0); Chloride 104 mmol/L (98-107); Chol/HDL Ratio 2.3 (1-3.5); Cholesterol 135 mg/dl (140-200); Estimated Glomerular Filt Rate 73 ml/min (>60); GFR (African American) 88 ML/MIN (>60); Glucose 91 mg/dl (74-100); HDL Cholesterol 60 mg/dl (40-60); Potassium 4.1 mmoL/L (3.5-5.1); Sodium 142 mmol/L (136-145); Total Protein,Serum 6.2 g/dl (6.3-8.2); Triglycerides 107 mg/dl (30-150); VLDL Cholesterol 21 mg/dL (0-40)
[2024-02-06 10:28] LABS: Direct LDL Cholesterol 65.48 mg/dL (100-129)
[2024-02-06 10:34] LABS: Free T4 (Free Thyroxine) 0.79 ng/dl (0.78-2.19)
[2024-02-06 10:49] LABS: Thyroid Stimulating Hormone 1.05 uIU/mL (0.465-4.68)
== END 2024-02-06 23:59 | disposition home or self-care (01) ==
LOC: LAB 08:49
PROVIDERS: PCP Family Medicine; Visit Provider Physician Assistant
DX: R94.31 Abnormal electrocardiogram [ECG] [EKG] (principal); I27.20 Pulmonary hypertension, unspecified; I25.10 Atherosclerotic heart disease of native coronary artery without angina pectoris; E78.2 Mixed hyperlipidemia; I10 Essential (primary) hypertension; Z72.0 Tobacco use; Z79.899 Other long term (current) drug therapy
CPT/HCPCS: 36415; 80048; 80061; 80076; 83735; 84439; 84443; 85025

== ENCOUNTER 2024-02-26 14:56 | Outpatient (CLI) | payer BC, SELFPAY ==
[2024-02-26 15:45] VITALS: PULSE 74; PULSE 80
[2024-02-26] MEDS: ALBUTEROL 0.083% 2.5 MG/3 ML NEB IH (15:45)
== END 2024-02-26 23:59 | disposition home or self-care (01) ==
LOC: RT 14:57
PROVIDERS: PCP Family Medicine; Visit Provider Nurse Practitioner Family
DX: J44.1 Chronic obstructive pulmonary disease with (acute) exacerbation (principal); F17.210 Nicotine dependence, cigarettes, uncomplicated
CPT/HCPCS: 94060; 94640

== ENCOUNTER 2024-05-28 14:47 | Outpatient (CLI) | payer BC, SELFPAY ==
--- NOTE | 2024-05-28 14:48 | CT_ITS ---
FINAL REPORT TECHNIQUE: Thin section axial images were obtained from the lung apices to the upper abdomen by computed tomography. Reformatted images were obtained and reviewed. This study was performed with techniques to keep radiation doses al low as reasonably achievable (ALARA). Individualized dose reduction techniques using automated exposure control or adjustment of mA and/or kV according to the patient's size were employed. CLINICAL HISTORY: lung cancer screening. Smokes 1 PPD x45 yrs. COPD. Exposure to second hand smoke. Mother had hx of lung cancer. COMPARISON: CTA of the chest dated 10/12/2021 FINDINGS: CHEST CT LOW DOSE 64-year-old female, [id number] history, current smoker CTDI vol (mGy): 2.9 DLP (mGy-cm): 93.77 There is no axillary adenopathy. There is no mediastinal or hilar mass or adenopathy. Mild coronary artery calcifications are present. The heart is normal in size. There is no pericardial or pleural effusion. There is mild emphysema and mild pulmonary scarring. Lung window images demonstrate a 5 mm right lower lobe nodule best seen on image #47 of series 3, stable when compared to the prior exam.. Limited images of the upper abdomen remarkable for surgical absence of the gallbladder. IMPRESSION: Lung-RADS category 1. Recommend 12 month follow up low dose chest CT. Reviewed, Interpreted and Dictated by Chucky Anders III, MD Transcribed by Janny Frank Authenticated and [facility]
== END 2024-05-28 23:59 | disposition home or self-care (01) ==
LOC: RAD 14:48
PROVIDERS: PCP Family Medicine; Visit Provider Internal Medicine Pulmonary Disease
DX: F17.210 Nicotine dependence, cigarettes, uncomplicated (principal); J44.9 Chronic obstructive pulmonary disease, unspecified; Z12.2 Encounter for screening for malignant neoplasm of respiratory organs
CPT/HCPCS: 71271

== ENCOUNTER 2024-09-27 12:13 | Observation (INO) | payer OTHER, SELFPAY ==
[2024-09-27] VITALS (13 sets, daily range): BP systolic 91–111; BP diastolic 49–73; PULSE 74–104; RESP 22–26; TEMP 36.6–36.9; O2SAT 79–97; BMI 25.4; BMI 25.6
--- NOTE | 2024-09-27 12:31 | ED_ITS ---
<Statement entered by Raoul Blood MD - 09/28/24 16:06> I was consulted by the MARLEY, and we discussed the complexity of the problems being addressed. I approved the treatment and management plan for this patient's care in the emergency department, thus performing a substantive portion of the medical decision making. Raoul Blood MD, YARY, FACEP Discharge Plan Disposition Chief Complaint: Shortness of Breath/Dyspnea Discharge ED Provider: Raoul Blood General Adult HPI General Chief complaint: Shortness of Breath/Dyspnea Stated complaint: o2 70, congestion, sore throat, cough Time Seen by Provider: 09/27/24 12:31 History of Present Illness HPI narrative: Patient presents for evaluation of shortness of breath. Patient reports that she began feeling short of breath yesterday. She reports nonproductive cough In dyspnea on exertion even with light effort. Patient does have a history of COPD but is not on home O2, does not have a home nebulizer, and was a smoker until yesterday of 2 packs a day. She denies any fever chills hemoptysis hematochezia melena nausea vomiting diarrhea. 2007 Related Data Home Medications ?Medication ?Instructions ?Recorded ?Confirmed aspirin 81 mg tablet,delayed 81 mg PO DAILY 12/11/20 09/27/24 release (Adult Low Dose Aspirin) lorazepam 0.5 mg tablet 0.5 mg PO BID 09/03/24 09/27/24 albuterol sulfate 90 mcg/actuation 2 inh inhalation QIDP PRN 09/27/24 09/27/24 aerosol inhaler shortness of breath or wheezing metoprolol succinate 25 mg 25 mg PO DAILY 09/27/24 09/27/24 tablet,extended release 24 hr rosuvastatin 20 mg tablet 20 mg PO HS 09/27/24 09/27/24 Allergies Allergy/AdvReac Type Severity Reaction Status Date / Time codeine (CODEINE) Allergy Unknown Verified 09/03/24 12:51 [facility] Disclaimer: The information contained in this section may have been updated after the patient was seen, as this information can be updated by other users. Medical History COPD mixed type Multiple lung nodules on CT Encounter for screening for malignant neoplasm of lung Smoking greater than 30 pack years Chest pain Surgical History History of hysterectomy History of cholecystectomy Family History Other Cancer Social History Smoking Status: Current every day smoker tobacco type: cigarettes packs per day: 2 second hand exposure: Yes alcohol intake: never substance use type: denies use current occupational status: employed Travel in the last 8 weeks: Inside the [place] household members: family housing: house current occupational exposures/hazards: No caffeine: Yes Have you lived/traveled outside US in past 30 days?: No Contact w/someone who lives/traveled outside US past 30 days?: No Exposure to someone with infectious disease in past 14 days?: No Do you have a fever (greater than 100.4 F or 38 C)?: No Have you tested positive for COVID-19: No Exposed to someone with COVID-19 in past 14 days?: No Do you have a sore throat?: No Do you have a cough?: No Do you have any weakness?: No Do you have any diarrhea?: No Are you experiencing any unusual bleeding?: No Do you have any muscle aches/pain?: No Do you have any abdominal pain?: No Are you experiencing loss of taste or smell?: No Other Medical History Have you received the Flu Vaccine for this season: No Have you received the Pneumonia Vaccine: No ROS Obtained: Yes Systems reviewed as appropriate & no additional complaints except as documented Physical Exam General General appearance: alert and in no apparent distress Respiratory Respiratory exam: Present respiratory distress and wheezes; Absent normal lung sounds bilaterally or accessory muscle use Cardiovascular Cardiovascular exam: Present regular rate Neurological Exam Neurological exam: Present alert and oriented X3 Medical Decision Making Medical Records Medical records reviewed: Yes I reviewed the patient's medical records. Screening: Per USPSTF and CDC recommendations, given the prevalence of disease in our region, it is our hospital?s policy to screen for HIV and viral Hepatitis for all patients aged 18 and over and those with ongoing risk factors. Gregory Inquiry Pt receiving controlled substance: No Vital Signs: 09/27/24 12:16 09/27/24 12:20 09/27/24 15:25 Temperature 98 F Temperature Source Oral Pulse Rate 101 H Pulse Rate [Left Radial] 104 H Respiratory Rate 22 Blood Pressure 103/73 L Blood Pressure [Right Arm] 107/72 L Blood Pressure Mean 78 Blood Pressure Mean [Right Arm] 83 02 Sat by Pulse Oximetry 79 L 95 94 L Oxygen Delivery Method Room Air Nasal Cannula Nasal Cannula Oxygen Flow Rate (LPM) 2 4 09/27/24 15:43 09/27/24 16:00 09/27/24 16:00 Temperature Temperature Source Pulse Rate 99 H 97 H 98 H Pulse Rate [Left Radial] Respiratory Rate 23 Blood Pressure 107/63 L 104/51 L 104/51 L Blood Pressure [Right Arm] Blood Pressure Mean 80 68 Blood Pressure Mean [Right Arm] 02 Sat by Pulse Oximetry 95 96 94 L Oxygen Delivery Method Nasal Cannula Nasal Cannula Nasal Cannula Oxygen Flow Rate (LPM) 4 4 4 09/27/24 16:45 Temperature Temperature Source Pulse Rate 91 H Pulse Rate [Left Radial] Respiratory Rate 22 Blood Pressure 102/60 L Blood Pressure [Right Arm] Blood Pressure Mean Blood Pressure Mean [Right Arm] 02 Sat by Pulse Oximetry 95 Oxygen Delivery Method Nasal Cannula Oxygen Flow Rate (LPM) 4 Lab Data Lab results reviewed: Yes I reviewed the patient's lab results. Lab Results 09/27/24 12:35: WBC 8.1, RBC 4.94, Hgb 14.9, Hct 44.7, MCV 90.5, MCH 30.2, MCHC 33.3, RDW 12.5, Plt Count 171, MPV 11.1 H, Neut % (Auto) 76.5, Lymph % (Auto) 10.5, [place] % (Auto) 11.9 H, Eos % (Auto) 0.0 L, Baso % (Auto) 0.7, Neut # (Auto) 6.2, Lymph # (Auto) 0.9, [place] # (Auto) 1.0, Eos # (Auto) 0.0, Baso # (Auto) 0.1, D-Dimer 0.79 H, Sodium 134 L, Potassium 3.9, Chloride 101, Carbon Dioxide 27, Anion Gap 9.9, BUN 12, Creatinine 1.00, Estimated Creat Clear 53, Estimated GFR 56 L, Est GFR ( Amer) 68, Glucose 106 H, Calcium 8.5, Total Bilirubin 0.7, AST 68 H, ALT 49, Alkaline Phosphatase 84, NT-Pro-B Natriuret Pep 117, Total Protein 6.6, Albumin 3.9, Globulin 2.7, Albumin/Globulin Ratio 1.4, SARS-CoV-2 (PCR) Not detected, HIV Ag/Ab Combo Qual Negative, Influenza Type A (PCR) Detected A, Influenza Type B (PCR) Not detected, RSV (PCR) Not detected, Rhinovirus (PCR) Not detected 09/27/24 12:48: VBG pH 7.38, VBG pCO2 41.7, VBG pO2 66.5 H, VBG HCO3 23.9, VBG Total CO2 25.2, VBG O2 Saturation 93.7 H, VBG Base Excess -1.3, VBG Lactic Acid 1.4 09/27/24 12:35 09/27/24 12:35 Orders (Tests/Meds): ED MEDICATIONS Generic Name Dose Route Start Last Admin Trade Name Freq PRN Reason Stop Dose Admin Acetaminophen 650 mg 09/27/24 15:53 Acetaminophen 325mg Tab PO 10/27/24 15:52 Q4HP PRN Fever or Mild Pain (1-3) Albuterol/Ipratropium 3 ml 09/27/24 18:00 Ipratropium/Albuterol 3 Ml [facility] 10/27/24 17:59 Q4RT DEONTE Budesonide 0.5 mg 09/27/24 18:00 Budesonide 0.5mg/2ml [facility] 10/27/24 17:59 BIDRT [facility] Enoxaparin Sodium 40 mg 09/28/24 09:00 Enoxaparin 40mg/0.4ml Syringe SUBCUT 10/28/24 08:59 DAILY DEONTE Ondansetron HCl 4 mg 09/27/24 15:53 Ondansetron 4mg/2ml Vial IV 10/27/24 15:52 Q8HP PRN Nausea Prednisone 40 mg 09/28/24 09:00 Prednisone 20mg Tab PO 10/28/24 08:59 DAILY DEONTE Discontinued Medications Generic Name Dose Route Start Last Admin Trade Name Freq PRN Reason Stop Dose Admin Albuterol/Ipratropium 9 ml 09/27/24 12:49 09/27/24 12:50 Ipratropium/Albuterol 3 Ml [facility] 09/27/24 12:50 9 ml ONCE ONE Administration Albuterol/Ipratropium 9 ml 09/27/24 13:32 Ipratropium/Albuterol 3 Ml Neb IH 09/27/24 13:33 ONCE ONE Methylprednisolone Sodium Succinate 125 mg 09/27/24 14:22 09/27/24 15:00 Methylprednisolone Sod Succ 125mg Vial IV 09/27/24 14:23 125 mg ONCE ONE Administration ORDERS Category Date Time Status Chest XR -- portable [XR chest portable] Stat Exams 09/27/24 13:45 Completed BNP [NT Pro Brain Natriuretic Pep.] Stat Lab 09/27/24 12:35 Completed CBC w/Auto Diff [Complete Blood Count Auto Diff] Stat Lab 09/27/24 12:35 Completed CMP [Comprehensive Metabolic Panel] Stat Lab 09/27/24 12:35 Completed Complete Blood Count Auto Diff AMLAB Lab 09/28/24 06:00 Ordered Complete Blood Count Auto Diff AMLAB Lab 09/29/24 06:00 Ordered Complete Blood Count Auto Diff AMLAB Lab 09/30/24 06:00 Ordered Complete Blood Count Auto Diff AMLAB Lab 10/01/24 06:00 Ordered Complete Blood Count Auto Diff AMLAB Lab 10/02/24 06:00 Ordered Comprehensive Metabolic Panel AMLAB Lab 09/28/24 06:00 Ordered D-Dimer Stat Lab 09/27/24 12:35 Completed HIV Combo Stat Lab 09/27/24 12:35 Completed Hep C Ab with Reflex to RNA Stat Lab 09/27/24 12:35 Received Magnesium AMLAB Lab 09/28/24 06:00 Ordered Magnesium AMLAB Lab 09/29/24 06:00 Ordered Magnesium AMLAB Lab 09/30/24 06:00 Ordered Magnesium AMLAB Lab 10/01/24 06:00 Ordered Magnesium AMLAB Lab 10/02/24 06:00 Ordered Mini Respiratory Panel Stat Lab 09/27/24 12:35 Completed Blood Culture Stat Micro 09/27/24 15:47 Received VBG [Venous Blood Gas] Stat RT 09/27/24 12:48 Completed Tissue Perfus/Sepsis Re-Eval Sepsis Re-Evaluation Performed: Yes Date Performed: 09/27/24 Time Performed: 17:18 Medical Decision Narrative: In summary patient is a 64-year-old female who presents to the emergency department for evaluation of dyspnea. Patient is initially with a blood pressure 107/72 heart rate 104 breathing 22 times a minute satting at 79% on room air upon arrival, afebrile at 98. Physical exam is remarkable for increased work of breathing but no accessory muscle use, and expiratory wheezes in all 4 friedman with diminished air entry but breath sounds heard to bases. Differential diagnosis includes COPD exacerbation versus viral or bacterial pneumonia etc. Initial workup will be conducted with hematologic labs plain film chest x-ray VBG. Initial interventions include DuoNeb Solu-Medrol continuous cardiac monitoring supplemental O2 continuous pulse oximetry. Initial workup reviewed by me shows her white count is normal with no left shift her D-dimer is 0.79 and via years criteria PE is ruled out, VBG shows a pH of 7.38 pCO2 of 47.1 VBG lactic acid 1.4 the remainder of her hematologic labs are nonactionable including a negative NT proBNP of 117. Her respiratory panel shows influenza A. Upon repeat evaluation patient remains hypoxic down into the 70s off of oxygen. Given this I had interactive discussion with hospital medicine regarding patient management and she will be admitted for further evaluation and care. Critical Care Critical Care Time Critical Care Time: Yes Attestation: On 09/27/24, the high probability of a clinically significant, sudden or life threatening deterioration of the following system: Cardiopulmonary; required my full and direct attention, intervention and personal management. The time I documented below is in addition to time spent performing reported procedures but includes the following listed in this critical care notation. Total Time Total Critical Care Time: 30
[2024-09-27] MEDS: IPRATROPIUM/ALBUTEROL 3 ML NEB 9 ML IH (12:50)
[2024-09-27 12:55] LABS: Lactate Venous 1.4 mmol/L (0.4-2.0); VBG Base Excess -1.3 mmol/L (-2.4-2.3); VBG HCO3 23.9 mmol/L (23-30); VBG Oxygen Saturation 93.7 % (50-70); VBG PCO2 41.7 mmol/L (35-51); VBG PH 7.38 mmol/L (7.31-7.41); VBG PO2 66.5 mmol/L (28-40); VBG Total CO2 25.2 mmol/L (23-27)
--- NOTE | 2024-09-27 13:45 | XR_ITS ---
FINAL REPORT CLINICAL HISTORY: Shortness of breath, hypoxia COMPARISON: 02/28/2022 FINDINGS: A portable view of the chest was obtained. Cardiac and mediastinal silhouettes are within normal limits. The lungs are clear. There is no pleural effusion or pneumothorax. IMPRESSION: No acute process on this portable exam. Reviewed, Interpreted and Dictated by Tanja Sandoval MD Transcribed by Jazmine Bhardwaj Authenticated and [facility]
[2024-09-27 13:50] LABS: Coronavirus 19, PCR Not Detected (NotDetected); Human Rhinovirus Not Detected (NotDetected); Influenza B, PCR Not Detected (NotDetected); Respiratory Syncytial Virus Not Detected (NotDetected)
[2024-09-27 13:52] LABS: Basophils # 0.1 K/mm3 (0-0.2); Basophils % 0.7 % (0.1-2.0); Hematocrit 44.7 % (37.0-47.0); Hemoglobin 14.9 g/dL (12.2-16.2); Lymphocytes # 0.9 K/mm3 (0.7-4.5); Lymphocytes % 10.5 % (10-50); Mean Corpuscular HGB Conc 33.3 g/dL (31.8-35.4); Mean Corpuscular Hemoglobin 30.2 pg (27.0-31.2); Mean Corpuscular Volume 90.5 fl (81-99); Mean Platelet Volume 11.1 fl (7.4-10.4); Monocytes % 11.9 % (1.7-9.3); Neutrophils # 6.2 K/mm3 (1.8-7.8); Neutrophils % 76.5 % (37.0-80.0); Platelet Count 171 K/mm3 (142-424); Red Blood Count 4.94 M/mm3 (4.20-5.40); Red Cell Distribution Width 12.5 % (11.5-17.5); White Blood Count 8.1 K/mm3 (4.8-10.8)
[2024-09-27 13:54] LABS: HIV Combo NEGATIVE (Negative)
[2024-09-27 14:05] LABS: Alanine Aminotransferase 49 U/L (12-78); Albumin Level 3.9 g/dl (3.5-5.0); Albumin/Globulin Ratio 1.4 (1.1-1.8); Alkaline Phosphatase 84 U/L (38-126); Aspartate Amino Transferase 68 U/L (14-36); Bilirubin,Total 0.7 mg/dl (0.2-1.3); Blood Urea Nitrogen 12 mg/dl (7-17); Calcium 8.5 mg/dl (8.4-10.2); Carbon Dioxide 27 mmol/L (22.0-30.0); Chloride 101 mmol/L (98-107); Creatinine Clearance Estimated 53 mL/min (50-200); Estimated Glomerular Filt Rate 56 ml/min (>60); GFR (African American) 68 ML/MIN (>60); Globulin 2.7 g/dL (1.3-3.2); Glucose 106 mg/dl (74-100); Sodium 134 mmol/L (136-145); Total Protein,Serum 6.6 g/dl (6.3-8.2)
[2024-09-27 14:10] LABS: D-Dimer 0.79 ug/mL (0.0-0.5)
[2024-09-27 14:13] LABS: Anion Gap 9.9 mEq/L (5-15); Potassium 3.9 mmoL/L (3.5-5.1)
[2024-09-27 14:16] LABS: NT Pro Brain Natriuretic Pep. 117 pg/mL (0-125)
--- NOTE | 2024-09-27 14:22 | PC.NURSE ---
pt. sitting in chair at this time. no needs call light in reach
[2024-09-27] MEDS: METHYLPREDNISOLONE SOD SUCC 125MG VIAL 125 MG IV (15:00)
--- NOTE | 2024-09-27 15:06 | PC.WOUNDNOTE ---
Placed pt on RA, Sat 78%, placed on 2 LNC, O2 increased to 83%, waited 1 minute, increased to 4 LNC, O2 increased to 91 %. No acute distress noted. PAManuel Don notified of patietn status. No new orders at this, time.
--- NOTE | 2024-09-27 15:18 | PC.NURSE ---
Ambulate patient on room air, O2 dropped to 72% RR increased from 22 to 40. Placed in rm 4 on campus interviews intern, instructed Jesusita EMT to draw two sets of blood cultures. JEANNETTE Don notified of patient state.
--- NOTE | 2024-09-27 15:59 | HMH.PHAINT1 ---
Pharmacy Intervention Comments: MEDICATION RECONCILIATION COMPLETED ON PATIENT USING EXTERNAL FILL HISTORY FROM PHARMACY. -TRACI KING, JEMALD
[2024-09-27 16:56] LABS: Influenza A, PCR Detected (NotDetected)
--- NOTE | 2024-09-27 18:02 | P.HP_ITS ---
History of Present Illness *Admission Date: 09/27/24 *Reason for visit:: COPD exacerbation *History of present illness: Linda Mccormick is a 64-year-old female with a medical history significant for COPD not on oxygen unable to tolerate Trelegy, hyperlipidemia who presents with progressive shortness of breath for the past few days. She states has been having flulike symptoms over the past week and began developing shortness of breath, coughing. Apparently her pulse ox was in the 70s at home which point she proceeded to the ED. On arrival, patient was saturating 79% on room air which improved with 2 L. Workup in the ED significant for VBG that was unremarkable, but tested positive for influenza A. DuoNeb breathing treatments, Solu-Medrol were administered in the ED without alleviation of symptoms or hypoxia. Case discussed with ED provider and decision was made to admit patient for acute hypoxic respiratory failure secondary to COPD exacerbation [facility] Disclaimer: The information contained in this section may have been updated after the patient was seen, as this information can be updated by other users. Medical History COPD mixed type Multiple lung nodules on CT Encounter for screening for malignant neoplasm of lung Smoking greater than 30 pack years Chest pain Surgical History History of hysterectomy History of cholecystectomy Family History Other Cancer Social History Smoking Status: Current every day smoker tobacco type: cigarettes packs per day: 2 second hand exposure: Yes alcohol intake: never substance use type: denies use current occupational status: employed Travel in the last 8 weeks: [place] the [place] household members: family housing: house current occupational exposures/hazards: No caffeine: Yes Have you lived/traveled outside US in past 30 days?: No Contact w/someone who lives/traveled outside US past 30 days?: No Exposure to someone with infectious disease in past 14 days?: No Do you have a fever (greater than 100.4 F or 38 C)?: No Have you tested positive for COVID-19: No Exposed to someone with COVID-19 in past 14 days?: No Do you have a sore throat?: No Do you have a cough?: No Do you have any weakness?: No Do you have any diarrhea?: No Are you experiencing any unusual bleeding?: No Do you have any muscle aches/pain?: No Do you have any abdominal pain?: No Are you experiencing loss of taste or smell?: No Other Medical History Have you received the Flu Vaccine for this season: No Have you received the Pneumonia Vaccine: No Meds Home Medications and Allergies Home Medications ?Medication ?Instructions ?Recorded ?Confirmed ?Type aspirin 81 mg tablet,delayed 81 mg PO DAILY 12/11/20 09/27/24 History release (Adult Low Dose Aspirin) lorazepam 0.5 mg tablet 0.5 mg PO BID 09/03/24 09/27/24 History albuterol sulfate 90 mcg/actuation 2 inh inhalation QIDP PRN 09/27/24 09/27/24 History aerosol inhaler shortness of breath or wheezing metoprolol succinate 25 mg 25 mg PO DAILY 09/27/24 09/27/24 History tablet,extended release 24 hr rosuvastatin 20 mg tablet 20 mg PO HS 09/27/24 09/27/24 History New Prescriptions to Start Prescriptions: Allergies Allergy/AdvReac Type Severity Reaction Status Date / Time codeine (CODEINE) Allergy Unknown Verified 09/03/24 12:51 Exam Data for Last 24 hours Vital signs and Labs for Last 24 Hours: Temp Pulse Resp BP Pulse Ox O2 Del Method O2 Flow Rate 98.5 F 77 22 100/58 L 95 Nasal Cannula 4 09/27/24 17:27 09/27/24 17:30 09/27/24 17:27 09/27/24 17:30 09/27/24 17:30 09/27/24 17:30 09/27/24 17:30 Laboratory Results - last 24 hr 09/27/24 12:35: WBC 8.1, RBC 4.94, Hgb 14.9, Hct 44.7, MCV 90.5, MCH 30.2, MCHC 33.3, RDW 12.5, Plt Count 171, MPV 11.1 H, Neut % (Auto) 76.5, Lymph % (Auto) 1 0.5, [place] % (Auto) 11.9 H, Eos % (Auto) 0.0 L, Baso % (Auto) 0.7, Neut # (Auto) 6.2, Lymph # (Auto) 0.9, [place] # (Auto) 1.0, Eos # (Auto) 0.0, Baso # (Auto) 0.1, D-Dimer 0.79 H, Sodium 134 L, Potassium 3.9, Chloride 101, Carbon Dioxide 27, Anion Gap 9.9, BUN 12, Creatinine 1.00, Estimated Creat Clear 53, Estimated GFR 56 L, Est GFR ( Amer) 68, Glucose 106 H, Calcium 8.5, Total Bilirubin 0.7, AST 68 H, ALT 49, Alkaline Phosphatase 84, NT-Pro-B Natriuret Pep 117, Total Protein 6.6, Albumin 3.9, Globulin 2.7, Albumin/Globulin Ratio 1.4, SARS-CoV-2 (PCR) Not detected, HIV Ag/Ab Combo Qual Negative, Influenza Type A (PCR) Detected A, Influenza Type B (PCR) Not detected, RSV (PCR) Not detected, Rhinovirus (PCR) Not detected 09/27/24 12:48: VBG pH 7.38, VBG pCO2 41.7, VBG pO2 66.5 H, VBG HCO3 23.9, VBG Total CO2 25.2, VBG O2 Saturation 93.7 H, VBG Base Excess -1.3, VBG Lactic Acid 1.4 I & O for Last 24 hours: Intake & Output 09/24/24 09/25/24 09/26/24 09/27/24 23:59 23:59 23:59 23:59 Weight 57.153 kg Constitutional Constitutional: no acute distress *Routine HEENT Exam Head: Present normocephalic Eye: Present EOMI and PERRL ENT: Present mucous membranes moist *Routine Neck Exam Neck: Present supple; Absent lymphadenopathy *Routine Respiratory Exam Respiratory: Present wheezes and distant breath sounds; Absent CTA bilaterally *Routine Cardiovascular Exam Cardiovascular: Present RRR *Routine Abdominal Exam Abdominal: Present soft and normoactive bowel sounds; Absent tenderness *Routine Rectal Exam Rectal:: deferred *Routine Genitalia Exam Genitalia:: deferred *Routine Extremities Exam Extremities: Absent cyanosis, clubbing or edema *Routine Skin Exam Skin: Present warm; Absent rash *Routine Neurological Exam Neurological: Present alert and oriented X3 Assessment and Plan *Assessment and plan (1) COPD with acute exacerbation: Status: Acute Category: Medical Code(s): J44.1 - Chronic obstructive pulmonary disease with (acute) exacerbation (2) Acute hypoxemic respiratory failure: Status: Acute Category: Medical Code(s): J96.01 - Acute respiratory failure with hypoxia Plan Linda Mccormick is a 64-year-old female with a medical history significant for COPD not on oxygen unable to tolerate Trelegy, hyperlipidemia who presents with progressive shortness of breath for the past few days. She states has been having flulike symptoms over the past week and began developing shortness of breath, coughing. Apparently her pulse ox was in the 70s at home which point she proceeded to the ED. On arrival, patient was saturating 79% on room air which improved with 2 L. Workup in the ED significant for VBG that was unremarkable, but tested positive for influenza A. DuoNeb breathing treatments, Solu-Medrol were administered in the ED without alleviation of symptoms or hypoxia. Case discussed with ED provider and decision was made to admit patient for acute hypoxic respiratory failure secondary to COPD exacerbation. #Acute hypoxic respiratory failure #COPD exacerbation #Influenza A positive ? CXR did not reveal acute pulmonary findings. ? DuoNebs every 4 hours, Pulmicort twice daily. ? Prednisone 40 mg day 2/5 starting tomorrow. ? Azithromycin day 1/. ? Tamiflu day 1/. ? Currently requiring 4 L, wean as tolerated. ? Resume and reeducate how to use Trelegy tomorrow. #Hyperlipidemia ? Resume home rosuvastatin. Full code DVT prophylaxis: Lovenox 40 mg
[2024-09-27] MEDS: IPRATROPIUM/ALBUTEROL 3 ML NEB IH ×2 (18:55→22:52)
[2024-09-27] MEDS: BUDESONIDE 0.5MG/2ML NEB 0.5 MG IH (18:55)
--- NOTE | 2024-09-27 20:19 | PC.NURSE ---
PATIENT ARRIVED TO FLOOR VIA STRETCHER FROM ED AT 19:46.
[2024-09-27] MEDS: OSELTAMIVIR 75MG CAPSULE 75 MG PO (21:02)
[2024-09-27] MEDS: AZITHROMYCIN 250MG TABLET 250 MG PO (21:37)
[2024-09-28 04:00] VITALS: BP 118/60; PULSE 80; RESP 16; TEMP 36.8; O2SAT 95; BMI 25.6
--- NOTE | 2024-09-28 05:42 | PC.NURSE ---
Pt. is alert and orientated x 4. Pt. has had a stable uneventful night. Pt has been coughing a lot but mostly unproductive of sputum. Pt was able to sleep some . VSS. Personal items and call kemp in reach.
[2024-09-28 06:10] LABS: HCV Ab Non Reactive (Non Reactive)
[2024-09-28] MEDS: IPRATROPIUM/ALBUTEROL 3 ML NEB IH ×3 (06:49→14:13)
[2024-09-28] MEDS: BUDESONIDE 0.5MG/2ML NEB 0.5 MG IH (06:49)
[2024-09-28 06:50] VITALS: PULSE 71; PULSE 81; O2SAT 97
[2024-09-28 07:48] LABS: Basophils % 0.2 % (0.1-2.0); Hematocrit 41.1 % (37.0-47.0); Hemoglobin 13.7 g/dL (12.2-16.2); Lymphocytes # 0.9 K/mm3 (0.7-4.5); Lymphocytes % 7.5 % (10-50); Mean Corpuscular HGB Conc 33.3 g/dL (31.8-35.4); Mean Corpuscular Hemoglobin 29.9 pg (27.0-31.2); Mean Corpuscular Volume 89.7 fl (81-99); Mean Platelet Volume 10.6 fl (7.4-10.4); Monocytes # 1.1 K/mm3 (0.1-1.0); Monocytes % 9.2 % (1.7-9.3); Neutrophils # 9.6 K/mm3 (1.8-7.8); Neutrophils % 82.7 % (37.0-80.0); Platelet Count 170 K/mm3 (142-424); Red Blood Count 4.58 M/mm3 (4.20-5.40); Red Cell Distribution Width 12.3 % (11.5-17.5); White Blood Count 11.6 K/mm3 (4.8-10.8)
[2024-09-28 08:00] VITALS: BP 97/63; PULSE 95; RESP 18; TEMP 36.6; O2SAT 92
[2024-09-28 08:03] LABS: Alanine Aminotransferase 41 U/L (12-78); Albumin Level 3.7 g/dl (3.5-5.0); Albumin/Globulin Ratio 1.4 (1.1-1.8); Alkaline Phosphatase 79 U/L (38-126); Aspartate Amino Transferase 42 U/L (14-36); Bilirubin,Total 0.3 mg/dl (0.2-1.3); Blood Urea Nitrogen 14 mg/dl (7-17); Calcium 8.7 mg/dl (8.4-10.2); Carbon Dioxide 30 mmol/L (22.0-30.0); Chloride 100 mmol/L (98-107); Creatinine Clearance Estimated 53 mL/min (50-200); Estimated Glomerular Filt Rate 101 ml/min (>60); GFR (African American) 123 ML/MIN (>60); Globulin 2.6 g/dL (1.3-3.2); Glucose 125 mg/dl (74-100); Magnesium 2.2 mg/dl (1.6-2.3); Sodium 134 mmol/L (136-145); Total Protein,Serum 6.3 g/dl (6.3-8.2)
--- NOTE | 2024-09-28 08:33 | PC.NURSE ---
92% on 2l nc, 88% on RA
[2024-09-28] MEDS: ENOXAPARIN 40MG/0.4ML SYRINGE 40 MG SUBCUT (08:34)
[2024-09-28] MEDS: predniSONE 20MG TAB 40 MG PO (08:34)
[2024-09-28] MEDS: AZITHROMYCIN 250MG TABLET 250 MG PO (08:35)
[2024-09-28] MEDS: FLUTICASONE/UMECLIDIN/VILANTER 100/62.5/25MCG INHALER 1 PUFF IH (10:34)
[2024-09-28 10:35] VITALS: PULSE 85; PULSE 99; O2SAT 87
[2024-09-28] MEDS: OSELTAMIVIR PHOSPHATE 6MG/ML ORAL SUSP 60ML 30 MG PO (10:48)
[2024-09-28 11:29] VITALS: BP 112/52; PULSE 102; RESP 19; TEMP 36.6; O2SAT 86
--- NOTE | 2024-09-28 13:55 | EXP.DC.SUM ---
General Admission date:: 09/27/24 HPI HPI HPI: Linda Mccormick is a 64-year-old female with a medical history significant for COPD not on oxygen unable to tolerate Trelegy, hyperlipidemia who presents with progressive shortness of breath for the past few days. She states has been having flulike symptoms over the past week and began developing shortness of breath, coughing. Apparently her pulse ox was in the 70s at home which point she proceeded to the ED. On arrival, patient was saturating 79% on room air which improved with 2 L. Workup in the ED significant for VBG that was unremarkable, but tested positive for influenza A. DuoNeb breathing treatments, Solu-Medrol were administered in the ED without alleviation of symptoms or hypoxia. Case discussed with ED provider and decision was made to admit patient for acute hypoxic respiratory failure secondary to COPD exacerbation Hospital Course Hospital Course Hospital Course: Linda Mccormick is a 64-year-old female with a medical history significant for COPD not on oxygen unable to tolerate Trelegy, hyperlipidemia who presents with progressive shortness of breath for the past few days. She states has been having flulike symptoms over the past week and began developing shortness of breath, coughing. Apparently her pulse ox was in the 70s at home which point she proceeded to the ED. On arrival, patient was saturating 79% on room air which improved with 2 L. Workup in the ED significant for VBG that was unremarkable, but tested positive for influenza A. DuoNeb breathing treatments, Solu-Medrol were administered in the ED without alleviation of symptoms or hypoxia. Case discussed with ED provider and decision was made to admit patient for acute hypoxic respiratory failure secondary to COPD exacerbation. #Acute hypoxic respiratory failure #COPD exacerbation #Influenza A positive ? CXR did not reveal acute pulmonary findings. ? Clinically improved with DuoNebs, Pulmicort, steroids, azithromycin, Tamiflu. ? Continues to require 2 L nasal cannula with appropriate saturations. Saturating 88% on room air at rest. ? Patient states she prefers Trelegy however Stiolto as a letter makes her choke. ? Discharged with Trelegy 100, DuoNebs, nebulizer machine, prednisone, azithromycin, Tamiflu. ? Will follow-up with pulmonology within 1 week. #Hyperlipidemia ? Resume home rosuvastatin. Exam Data for Last 24 hours Vital signs and Labs for Last 24 Hours: Temp Pulse Resp BP Pulse Ox O2 Del Method O2 Flow Rate 97.9 F 102 H 19 112/52 L 86 L Nasal Cannula 4 09/28/24 11:29 09/28/24 11:29 09/28/24 11:29 09/28/24 11:29 09/28/24 11:29 09/28/24 13:00 09/28/24 13:00 Laboratory Results - last 24 hr 09/27/24 12:35: WBC 8.1, RBC 4.94, Hgb 14.9, Hct 44.7, MCV 90.5, MCH 30.2, MCHC 33.3, RDW 12.5, Plt Count 171, MPV 11.1 H, Neut % (Auto) 76.5, Lymph % (Auto) 10.5, [place] % (Auto) 11.9 H, Eos % (Auto) 0.0 L, Baso % (Auto) 0.7, Neut # (Auto) 6.2, Lymph # (Auto) 0.9, [place] # (Auto) 1.0, Eos # (Auto) 0.0, Baso # (Auto) 0.1, D-Dimer 0.79 H, Sodium 134 L, Potassium 3.9, Chloride 101, Carbon Dioxide 27, Anion Gap 9.9, BUN 12, Creatinine 1.00, Estimated Creat Clear 53, Estimated GFR 56 L, Est GFR ( Amer) 68, Glucose 106 H, Calcium 8.5, Total Bilirubin 0.7, AST 68 H, ALT 49, Alkaline Phosphatase 84, NT-Pro-B Natriuret Pep 117, Total Protein 6.6, Albumin 3.9, Globulin 2.7, Albumin/Globulin Ratio 1.4, SARS-CoV-2 (PCR) Not detected, Hepatitis C Antibody Non reactive, HIV Ag/Ab Combo Qual Negative, Influenza Type A (PCR) Detected A, Influenza Type B (PCR) Not detected, RSV (PCR) Not detected, Rhinovirus (PCR) Not detected 09/28/24 07:05: WBC 11.6 H D, RBC 4.58, Hgb 13.7, Hct 41.1, MCV 89.7, MCH 29.9, MCHC 33.3, RDW 12.3, Plt Count 170, MPV 10.6 H, Neut % (Auto) 82.7 H, Lymph % (Auto) 7.5 L, [place] % (Auto) 9.2, Eos % (Auto) 0.0 L, Baso % (Auto) 0.2, Neut # (Auto) 9.6 H, Lymph # (Auto) 0.9, [place] # (Auto) 1.1 H, Eos # (Auto) 0.0, Baso # (Auto) 0.0, Sodium 134 L, Potassium 4.0, Chloride 100, Carbon Dioxide 30, Anion Gap 8.0, BUN 14, Creatinine 0.60 D, Estimated Creat Clear 53, Estimated GFR 101, Est GFR ( Amer) 123 D, Glucose 125 H, Calcium 8.7, Magnesium 2.2, Total Bilirubin 0.3, AST 42 H D, ALT 41, Alkaline Phosphatase 79, Total Protein 6.3, Albumin 3.7, Globulin 2.6, Albumin/Globulin Ratio 1.4 I & O for Last 24 hours: Intake & Output 09/25/24 09/26/24 09/27/24 09/28/24 23:59 23:59 23:59 23:59 Intake Total 748 / 748 Output Total 0 / 0 Balance 748 / 748 Weight 57.652 kg 57.652 kg Microbiology Reports for the Last 24 Hours: Microbiology 09/27/24 15:47 Blood Blood Culture - Preliminary Constitutional Constitutional: no acute distress *Routine HEENT Exam Head: Present normocephalic Eye: Present EOMI and PERRL ENT: Present mucous membranes moist *Routine Neck Exam Neck: Present supple; Absent lymphadenopathy *Routine Respiratory Exam Respiratory: Present wheezes; Absent CTA bilaterally *Routine Cardiovascular Exam Cardiovascular: Present RRR *Routine Abdominal Exam Abdominal: Present soft and normoactive bowel sounds; Absent tenderness *Routine Extremities Exam Extremities: Absent cyanosis, clubbing or edema *Routine Skin Exam Skin: Present warm; Absent rash *Routine Neurological Exam Neurological: Present alert and oriented X3 Results Data Completed and Pending Labs on day of discharge: Labs from last 24 hours 09/28/24 09/27/24 07:05 12:35 WBC 11.6 H D 8.1 RBC 4.58 4.94 Hgb 13.7 14.9 Hct 41.1 44.7 MCV 89.7 90.5 MCH 29.9 30.2 MCHC 33.3 33.3 RDW 12.3 12.5 Plt Count 170 171 MPV 10.6 H 11.1 H Neut % (Auto) 82.7 H 76.5 Lymph % (Auto) 7.5 L 10.5 [place] % (Auto) 9.2 11.9 H Eos % (Auto) 0.0 L 0.0 L Baso % (Auto) 0.2 0.7 Neut # (Auto) 9.6 H 6.2 Lymph # (Auto) 0.9 0.9 [place] # (Auto) 1.1 H 1.0 Eos # (Auto) 0.0 0.0 Baso # (Auto) 0.0 0.1 D-Dimer 0.79 H Sodium 134 L 134 L Potassium 4.0 3.9 Chloride 100 101 Carbon Dioxide 30 27 Anion Gap 8.0 9.9 BUN 14 12 Creatinine 0.60 D 1.00 Estimated Creat Clear 53 53 Estimated GFR 101 56 L Est GFR ( Amer) 123 D 68 Glucose 125 H 106 H Calcium 8.7 8.5 Magnesium 2.2 Total Bilirubin 0.3 0.7 AST 42 H D 68 H ALT 41 49 Alkaline Phosphatase 79 84 NT-Pro-B Natriuret Pep 117 Total Protein 6.3 6.6 Albumin 3.7 3.9 Globulin 2.6 2.7 Albumin/Globulin Ratio 1.4 1.4 SARS-CoV-2 (PCR) Not detected Hepatitis C Antibody Non reactive HIV Ag/Ab Combo Qual Negative Influenza Type A (PCR) Detected A Influenza Type B (PCR) Not detected RSV (PCR) Not detected Rhinovirus (PCR) Not detected Preliminary micro results at discharge 09/27/24 15:47 Blood Culture - Preliminary Blood DS: Diagnosis Discharge Diagnosis (1) COPD with acute exacerbation: Status: Acute Code(s): J44.1 - Chronic obstructive pulmonary disease with (acute) exacerbation (2) Acute hypoxemic respiratory failure: Status: Acute Code(s): J96.01 - Acute respiratory failure with hypoxia Meds Home Medications and Allergies Home Medications ?Medication ?Instructions ?Recorded ?Confirmed ?Type aspirin 81 mg tablet,delayed 81 mg PO DAILY 12/11/20 09/27/24 History release (Adult Low Dose Aspirin) lorazepam 0.5 mg tablet 0.5 mg PO BID 09/03/24 09/27/24 History albuterol sulfate 90 mcg/actuation 2 inh inhalation QIDP PRN 09/27/24 09/27/24 History aerosol inhaler shortness of breath or wheezing metoprolol succinate 25 mg 25 mg PO DAILY 09/27/24 09/27/24 History tablet,extended release 24 hr rosuvastatin 20 mg tablet 20 mg PO HS 09/27/24 09/27/24 History azithromycin 250 mg tablet 250 mg PO DAILY 4 days #4 tabs 09/28/24 Rx fluticasone fur. 100 mcg-umeclid 1 inh inhalation DAILY 30 days #60 09/28/24 Rx 62.5 mcg-vilant 25 mcg ea inhalat.powder (Trelegy Ellipta) ipratropium 0.5 mg-albuterol 3 mg 3 ml inhalation Q6H PRN shortness 09/28/24 Rx (2.5 mg base)/3 mL nebulization of breath or wheezing 30 days #90 soln mL oseltamivir 6 mg/mL oral 30 mg (5 mL) PO BID 4 days #40 mL 09/28/24 Rx suspension (Tamiflu) prednisone 20 mg tablet 40 mg (2 x 20 mg) PO DAILY 3 days 09/28/24 Rx #6 tabs New Prescriptions to Start Prescriptions: azithromycin [place],Patel ougimprfkzq-chqvqzcpi-cpndtxmg [Trelegy Ellipta] [place],Patel ipratropium-albuterol [place],Patel oseltamivir [Tamiflu] [place],Patel prednisone [place],Patel Allergies Allergy/AdvReac Type Severity Reaction Status Date / Time codeine (CODEINE) Allergy Unknown Verified 09/03/24 12:51 Discharge Plan Disposition Patient Disposition: Home, Self-Care Condition: Fair Follow up Plan Follow up with: Twyla Grimm MD [Primary Care Provider] - 10/02/24 (please call for appointment ) Sarah Beth Cook MD [Physician] - Enter time for follow up (please call for appointment ) Prescriptions/Medication Reconciliation: New ipratropium-albuterol 0.5 mg-3 mg(2.5 mg base)/3 mL Solution For Nebulization 3 ml inhalation Q6H PRN (Reason: shortness of breath or wheezing) 30 Days Qty: 90 0RF azithromycin 250 mg Tablet 250 mg PO DAILY 4 Days Qty: 4 0RF prednisone 20 mg Tablet 40 mg PO DAILY 3 Days Qty: 6 0RF oseltamivir [Tamiflu] 6 mg/mL Suspension For Reconstitution 30 mg PO BID 4 Days Qty: 40 0RF Trelegy Ellipta 100-62.5-25 mcg Blister With Device 1 inh inhalation DAILY 30 Days Qty: 60 0RF Continued lorazepam 0.5 mg tablet 0.5 mg PO BID aspirin [Adult Low Dose Aspirin] 81 mg tablet,delayed release (DR/EC) 81 mg PO DAILY metoprolol succinate 25 mg tablet extended release 24 hr 25 mg PO DAILY albuterol sulfate 90 mcg/actuation HFA aerosol inhaler 2 inh inhalation QIDP PRN (Reason: shortness of breath or wheezing) rosuvastatin 20 mg tablet 20 mg PO HS Discontinued Stiolto Respimat 2.5-2.5 mcg/actuation mist 1 puff INHALATION BID Problem Reconciliation Problems Reviewed?: Yes Patient Discharge Instructions Patient Instructions: Chronic Obstructive Pulmonary Disease, DI for Chronic Obstructive Pulmonary Disease Print Language: [place] Providers Primary Care Provider: Twyla Grimm Admit Provider: Patel Garrett Attending Provider: Patel Garrett
[2024-09-28 14:14] VITALS: PULSE 100; PULSE 104; O2SAT 92
--- NOTE | 2024-10-01 11:02 | CARE MANAGER ---
Called and spoke with patient regarding recent discharge. Patient stated that she is doing well, has started all new medication and plans to call and schedule needed f/u appts once weather improves. No concerns/questions at time of call.
== END 2024-09-28 15:40 | disposition home or self-care (01) ==
LOC: ER 16:00 → 2ND 17:24
PROVIDERS: Physician Assistant; Admitting Provider Student in an Organized Health Care Education/Training Program; Emergency Provider Student in an Organized Health Care Education/Training Program; PCP Family Medicine; Visit Provider Student in an Organized Health Care Education/Training Program
DX: J96.01 Acute respiratory failure with hypoxia (principal); J44.1 Chronic obstructive pulmonary disease with (acute) exacerbation; J10.1 Influenza due to other identified influenza virus with other respiratory manifestations; F17.210 Nicotine dependence, cigarettes, uncomplicated; E78.5 Hyperlipidemia, unspecified; Z99.81 Dependence on supplemental oxygen; Z79.82 Long term (current) use of aspirin; Z79.51 Long term (current) use of inhaled steroids
CPT/HCPCS: 71045; 80053; 82803; 83735; 83880; 85025; 85378; 86803; 87040; 87077; 87186; 87389; 87631; 94640; 94761; 99291; G0378; J1650; J2919; J7620

== ENCOUNTER 2024-10-22 08:39 | Outpatient (CLI) | payer OTHER, SELFPAY ==
--- NOTE | 2024-10-22 08:42 | XR_ITS ---
FINAL REPORT CLINICAL HISTORY: lower thoracic back pain COMPARISON: None FINDINGS: THORACIC SPINE Two views of the thoracic spine were obtained. There is no acute fracture. There is 8 degrees of thoracic scoliosis convex to the left. The vertebrae are normal in height. The disc spaces are preserved. IMPRESSION: No acute process. LUMBAR SPINE Three views of the lumbar spine were obtained. There is no acute fracture. There is no malalignment. The vertebrae are normal in height. The disc spaces are preserved. There is mild facet sclerosis of the lower lumbar spine. IMPRESSION: No acute process. Reviewed, Interpreted and Dictated by Jovan Guallpa MD Transcribed by Jazmine Bhardwaj Authenticated and [facility]
== END 2024-10-22 23:59 | disposition home or self-care (01) ==
LOC: RAD 08:41
PROVIDERS: PCP Nurse Practitioner Family; Visit Provider Nurse Practitioner Family
DX: M54.50 Low back pain, unspecified (principal)
CPT/HCPCS: 72084

== ENCOUNTER → 2024-12-20 16:43 | Outpatient (CLI) | payer OTHER, SELFPAY | LOC: SL 16:44 | PROVIDERS: PCP Internal Medicine; Visit Provider Internal Medicine Pulmonary Disease | DX: J44.9 Chronic obstructive pulmonary disease, unspecified (principal) | CPT/HCPCS: 94762 ==

== ENCOUNTER 2025-01-13 15:45 | Outpatient (CLI) | payer OTHER, SELFPAY ==
--- NOTE | 2025-01-13 15:48 | XR_ITS ---
FINAL REPORT TECHNIQUE: Chest PA & Lateral CLINICAL HISTORY: cough/chest congestion COMPARISON: 02/28/2022 FINDINGS: 2 views of the chest were performed. The heart size is normal. The mediastinum is within normal limits. There is no acute cardiopulmonary process. There are no pleural effusions. Chronic changes are present in the lung bases. There is no pneumothorax. The bony thorax appears intact. IMPRESSION: Chronic changes are present in the lung bases, with no acute cardiopulmonary process. Reviewed, Interpreted and Dictated by Jovan Guallpa MD Transcribed by Janny Frank Authenticated and [facility]
== END 2025-01-13 23:59 | disposition home or self-care (01) ==
LOC: RAD 15:46
PROVIDERS: PCP Nurse Practitioner Family; Visit Provider Nurse Practitioner
DX: R09.89 Other specified symptoms and signs involving the circulatory and respiratory systems (principal); R05.9 Cough, unspecified
CPT/HCPCS: 71046

== ENCOUNTER 2025-03-20 07:48 | Outpatient (CLI) | payer OTHER, SELFPAY ==
--- NOTE | 2025-03-20 | CA_ITS ---
APPROVED REPORT Exam: Pharmacologic Technologist: Brianna Madrigal Ht: 4 ft 11 in Wt: 124 lbs BSA: 1.50 m2 Medical History Medications: albuterol, aspirin, buspirone, lorazepam, metoprolol succinate ER, nicotine, rosuvastatin, stiolto respimat. Stress Test Details Test: Lexiscan HR Resting HR: 58 bpm Max Heart Rate (APMHR): 158.290018 bpm Max HR Achieved: 83 bpm Target HR (85% APMHR): 134.779813 bpm % of APMHR: 52.53 Recovery HR: 65 bpm BP Resting BP: 114.0/67.0 mmHg Max BP: 117.0/62.0 mmHg Recovery BP: 102.0/61.0 mmHg ECG Resting ECG: Sinus Bradycardia Stress ECG Conclusion Symptoms: No CP. Arrhythmias/Ectopy: No PVC's. Frequent PAC's. ST-T Changes: <1.5mm ST Segment changes. Conslusion: Non-Diagnostic Lexiscan stress. Electronically signed by : Nelia Zaidi MD 03/22/2025 00:11:56
--- OUTSIDE RECORDS SUMMARY | 2025-03-20 07:49 | XMS_ITS | Clinical Summary ---
Author Organization Healthcare Address [address] [place] [address] Care Team Providers Care Technician Trainee Name Role Phone MonicamarcSureshEloisenaseem Butts APRN Primary Care Provider [phone] Family History Medical History Relation Name Comments Aneurysm Other 1 Colon cancer Other 2 Cirrhosis Other 3 Hypertension Other 4 Lung cancer Other 5 Relation Name Status Comments Other 1 Other 2 Other 3 Other 4 Other 5 Social History Tobacco Use Types Packs/Day Years Used Date Smoking Tobacco: Every Day Alcohol Use Standard Drinks/Week Comments Yes 0 (1 standard drink = 0.6 oz pure alcohol) Alcoholic Drinks/day: Rarely consumes alcohol Comments Unknown Sex and Gender Information Value Date Recorded Sex Assigned at Not on file Legal Sex Female 6:56 PM EDT Gender Identity Not on file Sexual Orientation Not on file Last Filed Vital Signs Vital Sign Reading Time Taken Comments Blood Pressure 128/86 11/24/2017 2:47 PM EST Pulse - - Temperature - - Respiratory Rate - - Oxygen Saturation - - Inhaled Oxygen Concentration - - Weight 63.9 kg (140 lb 14 oz) 11/24/2017 2:47 PM EST Height 149.9 cm (4' 11 ) 11/24/2017 2:47 PM EST Body Mass Index 28.45 11/24/2017 2:47 PM EST Plan of Treatment Not on file Insurance [facility] [id number] ANTHEM Care Teams Technician Trainee Relationship Specialty Start Date End Date Eloise Wang APRN [address] [place] [address] PCP - General 02/05/21
--- OUTSIDE RECORDS SUMMARY | 2025-03-20 07:50 | XMS_ITS | Data Portability ---
Author Organization [facility] BERNA Ferguson HIXSON CLOSED Address [address] [place] [address] Assessment No assessment recorded. Plan of Treatment Reminders Order Date Submit Date Provider Last Modified By Organization Details Last Modified Time Details Appointments None recorded. Lab surgical pathology study 2018 019 [facility], [address] [place] [address], [phone], 9 13:08:47 cytology, vaginal/cer vical 2018 019 yoel nd10 [facility], [address] [place] [address], [address], 9 13:14:22 HPV DNA, high-risk 2018 019 [facility], [address] [place] [address], [address], 9 17:56:01 RPR (rapid plasma reagin), serum 2018 019 [facility], [address] [place] [address], [address], 9 12:59:13 HIV (1+2) Ab screen, serum 2018 019 [facility], [address] [place] [address], [address], 9 09:41:10 hepatitis (A+B+C) panel, serum 2018 019 [facility], [address] [place] [address], [address], 9 19:55:06 hsv (1+2) Ab, serum 2018 019 [facility], [address] [place] [address], [address], 9 16:00:40 CT + NG RNA, PCR, unspecified specimen 2018 019 [facility], [address] [place] [address], [address], 9 17:55:35 cytology, vaginal/cer vical [address] [facility], [address] [place] [address], [address], 8 16:31:51 HPV DNA, high-risk 2017 018 [facility], [address] [place] [address], [address], 8 13:20:45 Referral None recorded. Procedures None recorded. Surgeries None recorded. Imaging MAMMO, screening, tomosynthes is, bilateral, w/ CAD [address] [facility], [address] [place] [address] , [place], [address], 9 09:03:25 MAMMO, screening, tomosynthes is, bilateral, w/ CAD [address] Radiology [facility], [address] [place] [address] , [place], [address], 8 16:33:56 Medication Orders None recorded. Patient TargetsNo targets recorded. Patient Instructions Encounter Date Encounter Id Patient Instructions Last Modified By Organization Details Last Modified Time 03/05/2018 [id number] body mass index: care instructions [email or web address] Not available 03/05/2018 10:58:34 Spent 15 total minutes with the patient today in counseling regarding information documented in my assessment and plan above. The time represents more than 50% of the encounter. Not available 03/05/2018 10:56:05 03/08/2019 [id number] body mass index: care instructions Not available 03/08/2019 11:59:27 Spent 20 total minutes with the patient today. Greater than 50% of this time was spent counseling/coord ination of care as documented in my assessment and plan above. [email or web address] [email or web address] Not available 03/08/2019 12:06:54 05/20/2019 [id number] reviewed pathology from labial mass. 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. If she has any problems RTO [email or web address] Not available 05/20/2019 17:25:11 Reason for Referral None Reported. Results Created Date Observation Date Name Description Value Unit Range Abnormal Flag Note LastModifiedBy Organization Detail LastModifiedTime 03/05/20 18 03/10/2018 HPV DNA, high- risk high risk HPV Not Detect ed not detect ed normal This test was perfo rmed using the APTIM A HPV Assay ([employer] . This assay detec ts E6/E7 viral messe nger RNA (mRNA ) from 14 high- risk HPV types (16,1 8,31, 33,35 ,39,4 5,51, 52,56 ,58,5 9,66, 68). The yaritza tical perfo rmanc e sravani cteri stics of this assay have been deter mined by [facility]. The modif icati ons have not been clear ed or appro delvis by the FDA. This assay has been valid ated pursu ant to the CLIA regul ation s and is used for clini camron purpo ses. TEST PERFO RMED AT: [facility] [address] [place] [address] SHEILA Rivera MD Not Available [facility] [address] [place], [address], 03/10/2018 13:20:45 03/05/20 18 03/05/2018 cytol ogy, vagin al/ce rvica l gynecologica l cytology procedure SEE BELOW [facility] Depar tment of Patho logy GYNEC OLOGI CAMRON CYTOL OGY REPOR T NAME: LOREN RODRIGUEZ PATHO LOGY NO.: [id number] 1 Copy to: [facility] E OF SPECI MEN: VAGIN AL-TH IN PREP RELEV ANT HISTO RY: No LMP given . Menop ause: Y Hyste recto my: Y Histo ry of CA: CERVI CAMRON Prev. abnor mal: NOT IN PAST 3 YRS Comme nt: HPV CO-TE STING SPECI MEN ADEQU ACY SATIS FACTO RY FOR EVALU ATION . VAGIN AL SMEAR GENER AL CATEG ORIZA TION NEGAT ALEX FOR INTRA EPITH ELIAL LESIO N OR MALIG YOSHI COMME NT: SPECI MEN REFER RED FOR ADDIT IONAL TESTI NG KYLIE A L GERIE SS, CT( CP) Brianna d Out Date: 03/19 09:24 Cervi camron/v agina l cytol ogy is a scree marilin test with a recog nized false negat alex rate. New techn ologi es may decre ase, but will not elimi tai false negat alex resul ts. Regul ar cytol ogy scree marilin is recom jesus d to minim ize false negat alex resul ts. The ThinP rep(R ) Imagi ng syste m is used to tree t in prima ry cervi camron cance r scree marilin of ThinP rep(R ) Pap test slide s. Page 1 of 1 Not Available [facility] [address] [place], [address], 03/19/2018 09:25:33 03/08/20 19 03/08/2019 hepat itis (A+B+ C) panel , serum hepatitis B surface Ag NON-RE ACTIVE non-re active normal Not Available [facility] [address] [place], [address], 03/11/2019 12:10:38 03/08/2003/11/2019 hepat itis (A+B+ C) panel , serum hepatitis A Ab, IgM NON-RE ACTIVE non-re active normal TEST PERFO RMED AT: [facility] [employer] [facility] [address] [place] [address] SHEILA Rivera MD Not Available [facility] [address] [place] [address], [address], 03/11/2019 12:10:38 03/08/2003/11/2019 hepat itis (A+B+ C) panel , serum hepatitis B core Ab,IgM NON-RE ACTIVE non-re active normal TEST PERFO RMED AT: [facility] [employer] [facility] [address] [place] [address] SHEILA Rivera MD Not Available [facility] [address] [place] [address], [address], 03/11/2019 12:10:38 03/08/2003/11/2019 hepat itis (A+B+ C) panel , serum hcab, reflex viral RNA qt NON-RE ACTIVE non-re active normal Not Available [facility] [address] [place] [address], [address], 03/11/2019 12:10:38 03/08/2003/11/2019 hepat itis (A+B+ C) panel , serum hcab cutoff 0.02 <1.00 normal HCV antib lacey was non-r eacti ve. There is no labor atory evide nce of HCV infec tion. In most cases , no furth er actio n is requi red. Howev er, if recen t HCV expos ure is suspe cted, a test for HCV RNA (test code 01144 ) is sugge sted. For addit ional infor matio n pleas e refer to http: //[facility] n.que stdia gnost ics.c om/fa q/FAQ 22v1 (This link is being provi ded for infor matio nal/ educa gisell l purpo ses only. ) TEST PERFO RMED AT: [facility] [address] [place] [address] SHEILA Rivera MD Not Available [facility] [place], [address], 03/11/2019 12:10:38 03/08/20 19 03/11/2019 HIV (1+2) Ab scree n, serum HIV screen NON-RE ACTIVE non-re active normal HIV-1 antig en and HIV-1 /HIV- 2 antib odies were not detec lisandro. There is no labor atory evide nce of HIV infec tion. PLEAS E NOTE: This infor philomena n has been discl osed to you from recor ds whose confi denti ality may be prote cted by state law. If your state requi res such prote ction , then the state law prohi bits you from lizy chao any furth er discl osure of the infor matio n witho ut the speci fic writt en conse nt of the perso n to whom it perta ins, or as other love permi tted by law. A gener al autho rizat ion for the relea se of medic al or other infor matio n is NOT suffi cient for this purpo se. For addit ional infor matio n pleas e refer to http: //[facility] n.que stdia gnost ics.c om/fa q/FAQ 106 (This link is being provi ded for infor matio nal/ educa gisell l purpo ses only. ) The perfo rmanc e of this assay has not been clini sheri valid ated in patie nts less than 2 years old. TEST PERFO RMED AT: [facility] [address] [address] SHEILA Rivera MD Not Available [facility] [address] [place], [address], 03/11/2019 09:41:10 03/08/2003/11/2019 RPR (rapi d plasm a reagi n), serum RPR NON-RE ACTIVE nonrea ctive normal Not Available [facility] [address] [place], [address], 03/11/2019 12:59:13 03/08/2003/11/2019 hsv (1+2) Ab, serum hsv 1 IgG 32.80 index high Not Available [facility] [address] [place], [address], 03/15/2019 08:10:03 03/08/2003/11/2019 hsv (1+2) Ab, serum hsv 2 IgG 4.52 index high Index Inter preta tion ----- ----- ----- ---- <0.90 Negat alex 0.90- 1.09 Equiv ocal >1.09 Posit alex This assay utili zes recom binan t type- speci fic antig ens to diffe renti ate HSV-1 from HSV-2 infec tions . A posit alex resul t canno t disti nguis h betwe en recen t and past infec tion. If recen t HSV infec tion is suspe cted but the resul ts are negat alex or equiv ocal, the assay shoul d be repea lisandro in 4-6 weeks . The perfo rmanc e sravani cteri stics of the assay have not been estab lishe d for pedia tric popul ation s, immun ocomp romis ed patie nts, or neona breanna scree marilin. TEST PERFO RMED AT: [facility] [place] [address] [place] [address] SHEILA Rivera MD Not Available [facility] [address] [place], [address], 03/15/2019 08:10:03 03/08/20 19 03/14/2019 hsv (1+2) Ab, serum hsv 1 IgM POSITI VE negati ve abnormal Not Available [facility] [address] [place] [address], [address], 03/15/2019 08:10:03 03/08/20 19 03/14/2019 hsv (1+2) Ab, serum hsv 1 IgM titer 1:20 <1:20 high The IFA proce dure for measu ring IgM antib odies to HSV 1 and HSV 2 detec ts both type- commo n and type- speci fic HSV antib odies . Thus, IgM react ivity to both HSV 1 and HSV 2 may repre sent cross -reac tive HSV antib odies rathe r than expos ure to both HSV 1 and HSV 2. This assay was devel oped and its perfo rmanc e sravani cteri stics have been deter mined by [facility]. Perfo rmanc e sravani cteri stics refer to the yaritza tical perfo rmanc e of the test. TEST PERFO RMED AT: [facility] [address] [employer] [facility] [place] [address] SHEILA Rivera MD Not Available [facility] [address] [place] [address], [address], 03/15/2019 08:10:03 03/08/2003/14/2019 hsv (1+2) Ab, serum hsv 2 IgM NEGATI VE negati ve normal TEST PERFO RMED AT: [facility] [address] [place] [address] SHEILA Rivera MD Not Available [facility] [address] [place] [address], [address], 03/15/2019 08:10:03 03/08/2003/11/2019 CT + NG RNA, PCR, unspe cifie d speci men chlamydia trachomatis NOT DETECT ED not detect ed normal Not Available [facility] [address] [place] [address], [address], 03/11/2019 17:55:35 03/08/20 19 03/11/2019 CT + NG RNA, PCR, unspe cifie d speci men N. gonorrhoeae NOT DETECT ED not detect ed normal Not Available [facility] [address] [place], [address], 03/11/2019 17:55:35 03/08/20 19 03/11/2019 CT + NG RNA, PCR, unspe cifie d speci men comment SEE BELOW normal This test was perfo rmed using the APTIM A COMBO 2 Assay ([employer] . The yaritza tical perfo rmanc e sravani cteri stics of this assay , when used to test SureP ath speci mens have been deter mined by [facility]. TEST PERFO RMED AT: [email or web address] [facility] [address] [address] SHEILA Rivera MD Not Available [facility] [address] [place], [address], 03/11/2019 17:55:35 03/08/2003/11/2019 HPV DNA, high- risk high risk HPV Not Detect ed not detect ed normal This test was perfo rmed using the APTIM A HPV Assay ([employer] . This assay detec ts E6/E7 viral messe nger RNA (mRNA ) from 14 high- risk HPV types (16,1 8,31, 33,35 ,39,4 5,51, 52,56 ,58,5 9,66, 68). The yaritza tical perfo rmanc e sravani cteri stics of this assay have been deter mined by [facility]. The modif icati ons have not been clear ed or appro delvis by the FDA. This assay has been valid ated pursu ant to the CLIA regul ation s and is used for clini camron purpo ses. TEST PERFO RMED AT: [facility] [address] [address] SHEILA Rivera MD Not Available [facility] [address] [place], [address], 03/11/2019 17:56:01 03/08/20 19 03/08/2019 cytol ogy, vagin al/ce rvica l gynecologica l cytology procedure SEE BELOW [facility] Depar tment of Patho logy GYNEC OLOGI CAMRON CYTOL OGY REPOR T NAME: LOREN RODRIGUEZ PATHO LOGY NO.: [id number] Copy to: [facility] E OF SPECI MEN: VAGIN AL-TH IN PREP RELEV ANT HISTO RY: No LMP given . Hyste recto my: Y Comme nt: HPV CO-TE STING SPECI MEN ADEQU ACY SATIS FACTO RY FOR EVALU ATION . VAGIN AL SMEAR GENER AL CATEG ORIZA TION NEGAT ALEX FOR INTRA EPITH ELIAL LESIO N OR MALIG YOSHI DESCR IPTIV E DIAGN OSIS PREDO MINAN CE OF COCCO BACIL LI CONSI STENT WITH SHIFT IN VAGIN AL JANE . COMME NT: SPECI MEN REFER RED FOR ADDIT IONAL TESTI NG KYLIE A L GERIE SS, CT( CP) Brianna d Out Date: 03/18 10:29 Cervi camron/v agina l cytol ogy is a scree marilin test with a recog nized false negat alex rate. New techn ologi es may decre ase, but will not elimi tai false negat alex resul ts. Regul ar cytol ogy scree marilin is recom jesus d to minim ize false negat alex resul ts. The ThinP rep(R ) Imagi ng syste m is used to tree t in prima ry cervi camron cance r scree marilin of ThinP rep(R ) Pap test slide s. Page 1 of 1 Not Available [facility] [address] [place], [address], 03/18/2019 10:31:03 05/13/20 19 05/13/2019 surgi camron patho logy study surgical SEE BELOW Depar tment of Patho logy Surgi camron Patho logy Repor t NAME: LOREN RODRIGUEZ PATH. :[id number] Copy to: Diagn osis: Left labia l mass: Hidra denom a papil lifer um. SOURC E OF SPECI MEN: MASS, LEFT LABIA L CLINI CAMRON INFOR MATIO N: N 90.7 Gross Descr iptio n: Recei delvis in forma jigar label ed with the patie nt's name and desig nated left labia l mass is an unori ented white martinez nodul ar skin shave (1.2 x 0.7 x 0.6 cm) and four addit ional unori ented martinez-b rown soft tissu e fragm ents (1.3 x 1.3 x 0.4 cm in aggre gate) . The cut surfa ce of the skin shave is inked blue. The skin shave is secti oned and submi tted entir guero in casse tte 1. The addit ional soft tissu e fragm ents are submi tted entir guero in casse tte 2. CELIO 05/14 11:52 AM Micro scopi c Descr iptio n: Secti ons demon strat e a derma l based tumor compo sed of maze- like gland ular space s and papil yola foldi ngs with apocr ine diffe renti ation . Moder ate yoni al chron ic infla mmati on is noted and there is focal conne ction to the overl arun erode d epide rmis. These findi ngs are most in keepi ng with a hidra denom a papil lifer um (with some histo logic overl ap with syrin gocys taden fernando papil lifer um, which is a close ly relat ed neopl asm). No malig nant featu res are seen. YAAKOV HOUSE M.D. Brianna erazo Out Date: 05/15 13:07 Page 1 of 1 Not Available [facility] [address] [place] [address], [place], [address], 05/15/2019 13:08:47 Result Notes None recorded. Problems No Known Problems Procedures Surgical History Date Name Laterality Status Provider Name and Address Organization Details Recorded Time 05/13/20 19 Excision Genital Lesion completed JASMYNE DUNBAR, DO [address] [place], [address], [facility] 05/13/2019 11:50:23 03/08/20 19 Pap Smear collection completed LASHAWN GR, JEEP MECHANIC [address] [place], [address], [facility] 03/08/2019 12:04:29 03/08/20 19 Date of Last Pap Smear completed [facility] 03/08/2019 10:45:25 03/05/20 18 Pap Smear collection completed LASHAWN GR, JEEP MECHANIC [address] [place], [address], [facility] 03/05/2018 10:54:05 05/26/20 17 Date of Last Colonoscopy completed [facility] 03/08/2019 10:46:07 Cholecystectomy completed [facility] 03/05/2018 09:04:42 Hysterectomy/cayden e vagina completed [facility] 03/05/2018 09:04:55 Imaging Results None recorded. Procedure Notes None recorded. Medical Equipment None Reported. Allergies Allergen ID Allergen Name Allergen Category Reaction Reaction Severity Criticality Documentation Date Start Date Code Code System Note Provider Name and Address Organization Details Recorded Time 667303 codeine medicatio n Not available Not available Not available 08/19/20162010 1312 RxNorm Comme nt: Creat ed By: Diana Park ed Date: 2010 11:05 :12 AM; Not Available [facility] 6 06:06:32 Medications Name Sig Start Date Stop Date Status Note LastModified by Organization Details LastModified Time promethaz ine-DM 6.25 mg-15 mg/5 mL oral syrup 03/08 completed Not Available Not Available Not Available azithromy richelle 250 mg tablet 03/08 completed Not Available Not Available Not Available citalopra m 10 mg tablet Daily 03/05 completed Frequenc y: daily;Me dication Descript ion: citalopr am; Dosage:1 ; Route:or al; refills: 0 Not Available Not Available Not Available [facility] 4 gram oral powder Every morning 03/05 completed Frequenc y: qam;Medi cation Descript ion: cholesty ramine; Dosage:a s directed ; Route:or al; refills: 12; Quantity :30 pkts powder for reconsti tution Not Available Not Available Not Available nicotine 21 mg/24 hr daily transderm al patch 03/08 completed Not Available Not Available Not Available cefdinir 300 mg capsule 03/08 completed Not Available Not Available Not Available amoxicill in 875 mg-potass ium clavulana te 125 mg tablet 03/08 completed Not Available Not Available Not Available hydroxyzi ne pamoate 25 mg capsule Bedtime 03/05 completed Frequenc y: hs;Medic ation Descript ion: hydroxyz ine; Dosage:1 ; Route:or al; refills: 0 Not Available Not Available Not Available buspirone TID 03/08 completed PRN - per ptDannielle kern Dr. Not Available Not Available Not Available Asprin Ec Low Dose PRN active Not Available Not Available Not Available Havrix (PF) 1,440 [place] unit/mL intramusc ular syringe 03/08 completed Not Available Not Available Not Available Vitals Date Recorded Body height Body mass index (BMI) Body weight Systolic blood pressure Diastolic blood pressure Provider Name and Address Organization Details Last Updated DateTime 03/05/2018 149.86 cm 27.5 kg/m2 75549.56 g 100 mm[Hg] 70 mm[Hg] Lidia Vega [facility] 8 10:20:32 Date Recorded Body height Body mass index (BMI) Body weight Systolic blood pressure Diastolic blood pressure Provider Name and Address Organization Details Last Updated DateTime 03/08/2019 149.86 cm 25.4 kg/m2 34068.64 g 136 mm[Hg] 84 mm[Hg] Jasmyne Cruz [facility] 9 10:44:14 Date Recorded Body height Body mass index (BMI) Body weight Systolic blood pressure Diastolic blood pressure Provider Name and Address Organization Details Last Updated DateTime 05/13/2019 149.86 cm 26 kg/m2 21182.62 g 100 mm[Hg] 70 mm[Hg] Isabella Alvares [facility] 9 09:02:54 Date Recorded Body height Body mass index (BMI) Body weight Systolic blood pressure Diastolic blood pressure Provider Name and Address Organization Details Last Updated DateTime 05/20/2019 149.86 cm 26 kg/m2 62274.62 g 110 mm[Hg] 74 mm[Hg] Isabella Alvares [facility] 9 09:33:42 Social History Question Answer Notes LastModified by Organizat ion Details LastModified Time Tobacco Smoking Status Current Every Day Smoker [facility] 03/05/2018 10:17:26 What Is Your Level Of Caffeine Consumption? Moderate [email or web address] Information not available 03/05/2018 What Was The Date Of Your Most Recent Tobacco Screening? 03/08/2019 Information not available 11/12/2019 How Much Tobacco Do You Smoke? 1.5 PPD [email or web address] Information not available 03/05/2018 Has Tobacco Cessation Counseling Been Provided? Yes [email or web address] Information not available 03/05/2018 On What Date Was Tobacco Cessation Counseling Provided? 03/08/2019 [email or web address] Information not available 03/08/2019 Do You Have Symptoms Associated With Zika Virus (fever, Rash, Joint Pain, Or Conjunctivitis) ? No [email or web address] Information not available 03/05/2018 Have You Recently (within The Last 12 Weeks, Or During A Current ) Traveled To Or Lived In A Zika-affected Area? No Information not available 03/05/2018 Sex: Unknown Functional Status Question Answer Note LastModified by Organization D etails LastModified Time What is your level of alcohol consumption? None [email or web address] Information not available 03/05/2018 Mental Status None recorded. Family History Relationship Description Onset Age of this Age Resolved Age Notes LastModified by Organization Details LastModified Time Unspecified Relation Heart disease Acute Myocar dial Infarc tion [email or web address] Not available 03/05/2018 09:02:52 Unspecified Relation Hyperlipidem ia [email or web address] Not available 03/05 09:03:40 Unspecified Relation Arthritis [email or web address] Not available 02/23 09:03:54 Unspecified Relation Glaucoma [email or web address] Not available 03/05 09:04:03 Unspecified Relation Disorder of thyroid gland [email or web address] Not available 03/05 09:04:11 Maternal Grandfather Diabetes mellitus [email or web address] Not available 03/05 10:16:34 Mother Family history of malignant neoplasm Liver, Lung, colon, Uterin e [email or web address] Not available 03/05/2018 10:17:11 Mother Hypertensive disorder [email or web address] Not available 03/05 10:16:38 Mother Malignant tumor of colon [email or web address] Not available 2018 10:47:04 Medical History Condition Response Heart Problems N Other Y Hyperlipidemia N Cancer Y Stroke N Thyroid Problems N Depression Y Hoarseness N Lung Disease N Immune System Disorder N Shortness of Breath Y Sleep Apnea N High Cholesterol N Hepatitis N Liver Disease N Headaches N Hypertension N Chicken Pox Y Kidney Disease N Gynecological History Statement/Question Response Date of Last Colonoscopy 05/26/2017 Menses Monthly N STIs/STDs N HPV Vaccine N Date of Last Pap Smear 03/08/2019 Age at Menarche 15 Current Control Method Hysterectom y Most Recent Mammogram LMP Unknown Obstetrics History GPAL:G 5 P 3 0 2 3 Type Value Full Term 3 Spontaneous 2 Living 3 Total 5 Past Encounters Encounter ID Performer Location Encounter Start Date Encounter Closed Date Diagnosis/Indication Diagnosis SNOMED-CT Code Diagnosis ICD10 Code Diagnosis Note [id number] [facility] [address] 12/27/2016 00:10:42 12/27/2016 00:10:42 [id number] [place] [place] [address] [place] [address] 03/05/2018 10:04:24 03/05/2018 12:53:43 Gynecologic examination 44512464 Z01.419 Discussed SBEs Screening for malignant neoplasm of breast 325056873 Z12.31 History of malignant neoplasm of cervix 294669830 Z85.41 Pap smear pending Body mass index 25-29 - overweight 417491622 Z68.27 Handout given with diet and exercise recommenda tions Cyst of vulva 29170563 N 90.7 Discussed Epsom salts baths, warm compresses , Dial soap If become large or bothersome to RTC [id number] TE[facility]A [facility] [address] [address] [place] [address] 4 03/08/2019 10:13:07 03/08/2019 12:04:51 Gynecologic examination [id number] Z01.419 Discussed SBEs Screening for malignant neoplasm of breast [id number] Z12.31 Stressed importance of annual screening History of malignant neoplasm of cervix [id number] Z85.41 Pap smear and HPV pending Body mass index 25-29 - overweight [id number] Z68.27 Handout given with diet and exercise recommenda tions Cyst of vulva [id number] N 90.7 Attempted I&D today but cyst w/o purulent d/c - tissue noted after incision made Good hemostasis with silver nitrate F/u with Dr. Coley for removal Venereal d isease screening [id number] Z11.3 Mastodynia of bilateral breasts [id number] 8014533 N64.4 Discussed monthly SBEs Decrease caffeine Vit E and or evening primrose oil Adnexal tenderness 84121 3002 R10.2 Discussed exam findings States pain always occurs monthly x 1 wk then resolves spontaneou sly Present since total hyst If pain does not resolve, or if becomes bothersome , must call for pelvic u/s for further evaluation - pt v/u [id number] DO JOSTIN BAKER [facility] [address] [place] [address] 05/13/2019 08:54:25 05/13/2019 09:54:59 Labial cyst [id number] N90.7 RTO 2 days to evaluate stitches [id number] DO JOSTIN BAKER [facility] [address] [place] [address] 05/20/2019 09:17:05 05/20/2019 10:10:26 Health Concerns Section Related Observation LastModified by Organization Detai ls LastModified Time None Recorded Concern Status LastModified by Organization Details LastModified Time None Recorded Advance Directives Directive None Recorded Payers Insurance Date Sequence Insurance Name Policy Number Policy Lamb Covered Member ID Lamb Member ID Guarantor Name 08/19/2020 1 [place] [id number] Linda Mccormick [id number] Linda Mccormick 08/19/2020 1 [place] [id number] Linda Mccormick [id number] Linda Mccormick Notes Date Note Type Note Provider Name and Address Organization Details Recorded Time 03/05/2018 text/html Presents for aaliyah ual exam and pap smear S/p total hyst d/t cervical cancer Ovaries remain Mother with uterine and colon cancer Pt has never had genetic testing C/o bumps on the vulva - non tender and no changes since 1st appeared several months ago LASHAWN GR, JEEP MECHANIC [address] [place], [address], [facility] 03/05/2018 17:02:01 03/08/2019 text/html Presents for aaliyah ual exam and pap smear S/p total hyst d/t cervical cancer Ovaries remain Mother with uterine and colon cancer Pt has never had genetic testing C/o bump on the vulva - 1 has increased in size significantly since annual last yr - non tender but bothersome d/t size unfaithful again and filed for divorce the day after Hiram She is doing much better now - has children for support No s/sx of infx, but would like complete testing today just to be sure LASHAWN GR, JEEP MECHANIC [address] [place], [address], [facility] 03/08/2019 17:55:55 05/13/2019 text/html Pt is a 58yo P30 23 who is here today because she has a left labial cyst . She saw Lashawn WOODS in February and she tried to I&D the cyst, but didn't get much fluid out. It looks like the cyst is an infected condyloma and not actually part of the labia. Very tender. JASMYNE DUNBAR, DO [address] [place], [address], [facility] 05/13/2019 11:52:41 05/20/2019 text/html Pt is a 58yo who was here last week for removal of a left labial growth. Pt has healed fine, no complaints. Minimal bleeding. JASMYNE DUNBAR DO [address] [place], [address], [facility] 05/20/2019 17:25:27 OBGyn Episode No OBEpisode recorded.
--- NOTE | 2025-03-20 08:00 | NM_ITS ---
APPROVED REPORT Exam: Nuclear Stress Test Indication: soa Patient Location: Outpatient Stress Tech: Brianna Gaxiola [place] Tech:Maite Sanabria POORNIMA RT(R)(N) Ht: 5 ft 2 in Wt: 130 lbs Bra Size: 34c HR: 56 bpm BP: 114/67 mmHg BSA: 1.59 m2 TID: 1.21 BMI: 23.7 History: soa Procedure: Patient received 0.4 mg of intravenous Lexiscan, resting heart rate 56 bpm, resting blood pressure 114/67 mmHg, with Lexiscan maximum heart rate achieved was 82 bpm which is 85 % of the maximum predicted heart rate and blood pressure was 111/65 mmHg. With Lexiscan, patient denied any complaint of chest pain. Cardiac Stress and Resting SPECT Images: Cardiac Stress and Resting SPECT images were obtained using technetium 99m Myoview 31.5 mCi stress and 10.79 mCi at rest. Resting and stress imaging in supine and prone positions demonstrate no evidence of fixed or reversible perfusion defects. There is increase in transient ischemic dilatation (TID 1.21), which may be suggestive of possible multivessel disease or balanced ischemia. Gated imaging demonstrates mildly reduced LV systolic function. LVEF is calculated at 48%. Conclusion: No evidence of fixed or reversible perfusion defects. There is increase in transient ischemic dilatation (TID 1.21), which may be suggestive of possible multivessel disease or balanced ischemia. Gated imaging demonstrates mildly reduced LV systolic function. LVEF is calculated at 48%. Electronically signed by : Nelia Zaidi MD 03/21/2025 23:07:31
[2025-03-20] MEDS: ISOTOPE MYOVIEW (PER STUDY) 1 DOSE IV (09:57)
[2025-03-20] MEDS: REGADENOSON 0.4MG/5ML SYRINGE 0.4 MG IV (09:57)
[2025-03-20] MEDS: SODIUM CHLORIDE 0.9% 10ML SYR (RAD ONLY) 10 ML IV ×2 (09:58)
== END 2025-03-20 23:59 | disposition home or self-care (01) ==
LOC: RAD 07:48
PROVIDERS: PCP Nurse Practitioner Family; Visit Provider Nurse Practitioner Family
DX: I49.1 Atrial premature depolarization (principal); R00.1 Bradycardia, unspecified; R94.31 Abnormal electrocardiogram [ECG] [EKG]; R94.39 Abnormal result of other cardiovascular function study; I25.10 Atherosclerotic heart disease of native coronary artery without angina pectoris; I10 Essential (primary) hypertension
CPT/HCPCS: 78452; 93017; 93018; A9502; J2785

== ENCOUNTER 2025-03-21 10:46 | Outpatient (CLI) | payer OTHER, SELFPAY ==
--- NOTE | 2025-03-21 10:45 | CA_ITS ---
APPROVED REPORT EXAM: Comprehensive 2D, Doppler, and color-flow Echocardiogram Seed Specialist: Rupal Foster RDCS Ht: 4 ft 11 in Wt: 124lbs BSA: 1.50 BP: 109/51 mmHg Indications: Dyspnea M-Mode Dimensions RVDd 1.85 cm (0.9-2.6) LA Diam 2.35 cm (1.9-4.0) LVDd 4.69 cm (3.5-5.7) LVDs 3.44 cm (3.5-5.7) IVSd 0.41 cm (0.6-1.1) PWd 0.44 cm (0.6-1.1) EF (Teich) 52.10% FS 26.70% EDV (Teich) 101.90 mL TAPSE 1.38 (<1.7) ESV (Teich) 48.80 mL LV Diastology E Decel Time 237 (160-240 msec) E/A Ratio 0.9 Mitral Valve MV E Max Neeraj. 54.0 (40-130 cm/s) MV A Velocity 59.0 (40-130 cm/s) E/A Ratio 0.91 MV PHT 69.0 ms Tricuspid Valve TR P. Velocity 287.00 cm/s RAP Estimate 10.00 mmHg RVSP 42.90 mmHg Left Ventricle The left ventricle is normal size. The left ventricular systolic function is normal. The left ventricular ejection fraction is within the normal range. There is normal left ventricular wall thickness. There is normal LV segmental wall motion. The left ventricular diastolic function is normal. LVEF is 55%. Right Ventricle The right ventricle is normal size. The right ventricular systolic function is normal. Atria The left atrium size is normal. The right atrium size is normal. There is no Doppler evidence of interatrial shunt. Aortic Valve The aortic valve opens well. There is no aortic valvular stenosis. No aortic regurgitation is present. Mitral Valve The mitral valve is normal in structure. No evidence of mitral valve stenosis. Trace mitral regurgitation. Tricuspid Valve Tricuspid valve is grossly normal in structure and function. Mild tricuspid regurgitation. RVSP is 25-30 mmHg. Pulmonic Valve The pulmonary valve is normal in structure. Trace pulmonic regurgitation. Great Vessels The aortic root is normal in size. IVC is normal in size and collapses >50% with inspiration. Pericardium There is no pericardial effusion. Other Information Study Quality: Fair Conclusion Normal biventricular systolic function. Mild TR. Electronically signed by : Nelia Zaidi MD 03/26/2025 17:46:10
--- OUTSIDE RECORDS SUMMARY | 2025-03-21 10:48 | XMS_ITS | Clinical Summary ---
Author Organization Healthcare Address [address] [place] [address] Care Team Providers Care [facility] Director Name Role Phone MonicamarcSureshEloisenaseem Butts APRN Primary Care Provider [phone] Family History Medical History Relation Name Comments [...] of Treatment Not on file Insurance [facility] [id number] ANTHEM Care Teams [facility] Director Relationship Specialty Start Date End Date Eloise Wang APRN [address] [place] [address] PCP - General 02/05/21
--- OUTSIDE RECORDS SUMMARY | 2025-03-21 10:49 | XMS_ITS | Data Portability ---
Author Organization [facility] BERNA [place] CLOSED Address [address] [facility] [address] [place] [address] Assessment No assessment recorded. Plan of Treatment Reminders Order Date Submit Date Provider Last Modified By Organization Details Last Modified Time Details Appointments None recorded. Lab surgical pathology study 2018 019 [facility], [address] [place] [address], [address], 9 13:08:47 cytology, vaginal/cer vical 2018 019 yoel nd10 [facility], [address] [place] [address], [address], 9 13:14:22 HPV DNA, high-risk 2018 019 [facility], [address] [place] [address], [address], 9 17:56:01 RPR (rapid plasma reagin), serum 2018 019 [facility], [address] [place] [address], [address], 9 12:59:13 HIV (1+2) Ab screen, serum 2018 019 [facility], [address] [place] [address], [address], 9 09:41:10 hepatitis (A+B+C) panel, serum 2018 019 [facility], [address] [place] [address], [address], 9 19:55:06 hsv (1+2) Ab, serum 2018 019 [facility], [address] [place] [address], [address], 9 16:00:40 CT + NG RNA, PCR, unspecified specimen 2018 019 [facility], [address] [place] [address], [address], 9 17:55:35 cytology, vaginal/cer vical [address] [facility], [address] [place] [address], [address], 8 16:31:51 HPV DNA, high-risk 2017 018 [facility], [address] [place] [address], [address], 8 13:20:45 Referral None recorded. Procedures None recorded. Surgeries None recorded. Imaging MAMMO, screening, tomosynthes is, bilateral, w/ CAD [address] [facility], [address] [place] [address] , [place], [address], 9 09:03:25 MAMMO, screening, tomosynthes is, bilateral, w/ CAD [address] [facility], [address] [place] [address] , [place], [address], 8 16:33:56 Medication Orders None recorded. Patient TargetsNo targets recorded. Patient Instructions Encounter Date Encounter Id Patient Instructions Last Modified By Organization Details Last Modified Time 03/05/2018 [id number] body mass index: care instructions [email or web address] Not available 03/05/2018 10:58:34 Spent 15 total minutes with the patient today in counseling regarding information documented in my assessment and plan above. The time represents more than 50% of the encounter. Not available 03/05/2018 10:56:05 03/08/2019 [id number] body mass index: care instructions Not available 03/08/2019 11:59:27 Spent 20 total minutes with the patient today. Greater than 50% of this time was spent counseling/coord ination of care as documented in my assessment and plan above. [email or web address] [email or web address] Not available 03/08/2019 12:06:54 05/20/2019 [id number] reviewed pathology from labial mass. It was [...] rmed using the APTIM A HPV Assay ([employer] . This assay detec ts [...] AT: [facility] [address] [place] [address] SHEILA Rivera MD Not Available [facility] [address] [place], [address], 03/10/2018 13:20:45 03/05/20 18 03/05/2018 cytol ogy, vagin al/ce rvica l gynecologica l cytology procedure SEE BELOW [facility] Depar tment of Patho logy GYNEC OLOGI CAMRON CYTOL OGY REPOR T NAME: LOREN RODRIGUEZ PATHO LOGY NO.: [id number] 1 Copy to: [facility] E OF SPECI MEN: VAGIN AL-TH [...] s. Page 1 of 1 Not Available [facility] [address] [place], [address], 03/19/2018 09:25:33 03/08/20 19 03/08/2019 hepat itis (A+B+ C) panel , serum hepatitis B surface Ag NON-RE ACTIVE non-re active normal Not Available [facility] [address] [place], [address], 03/11/2019 12:10:38 03/08/2003/11/2019 hepat itis (A+B+ C) panel , serum hepatitis A Ab, IgM NON-RE ACTIVE non-re active normal TEST PERFO RMED AT: [facility] [address] [place] [address] SHEILA Rivera MD Not Available [facility] [address] [place] [address], [address], 03/11/2019 12:10:38 03/08/2003/11/2019 hepat itis (A+B+ C) panel , serum hepatitis B core Ab,IgM NON-RE ACTIVE non-re active normal TEST PERFO RMED AT: [facility] [address] [place] [address] SHEILA Rivera MD Not Available [facility] [address] [place] [address], [address], 03/11/2019 12:10:38 03/08/2003/11/2019 hepat itis (A+B+ C) panel , serum hcab, reflex viral RNA qt NON-RE ACTIVE non-re active normal Not Available [facility] [address] [place] [address], [address], 03/11/2019 12:10:38 03/08/2003/11/2019 hepat itis (A+B+ C) panel , serum hcab cutoff 0.02 <1.00 normal HCV antib lacey was non-r eacti ve. There is no labor atory evide nce of HCV infec tion. In most cases , no furth er actio n is requi red. Howev er, if recen t HCV expos ure is suspe cted, a test for HCV RNA (test code 16862 ) is sugge sted. For addit ional infor matio n pleas e refer to http: //[facility] n.[facility] [employer]ia [employer].c om/fa q/FAQ 22v1 (This link is being provi ded for infor matio nal/ educa gisell l purpo ses only. ) TEST PERFO RMED AT: [facility] [address] [place] [address] SHEILA Rivera MD Not Available [facility] [place], [address], 03/11/2019 12:10:38 03/08/20 19 03/11/2019 HIV (1+2) [...] matio n pleas e refer to http: //[facility] n.que stdia gnost ics.c om/fa q/FAQ 106 (This link is being provi ded for infor matio nal/ educa gisell l purpo ses only. ) The perfo rmanc e of this assay has not been clini sheri valid ated in patie nts less than 2 years old. TEST PERFO RMED AT: [facility] [address] [place] [address] SHEILA Rivera MD Not Available [facility] [address] [place], [address], 03/11/2019 09:41:10 03/08/2003/11/2019 RPR (rapi d plasm a reagi n), serum RPR NON-RE ACTIVE nonrea ctive normal Not Available [facility] [address] [place], [address], 03/11/2019 12:59:13 03/08/2003/11/2019 hsv (1+2) Ab, serum hsv 1 IgG 32.80 index high Not Available [facility] [address] [place], [address], 03/15/2019 08:10:03 03/08/2003/11/2019 hsv (1+2) Ab, serum [...] PERFO RMED AT: [facility] [place] [address] [place] [address] SHEILA Rivera MD Not Available [facility] [address] [place], [address], 03/15/2019 08:10:03 03/08/20 19 03/14/2019 hsv (1+2) Ab, serum hsv 1 IgM POSITI VE negati ve abnormal Not Available [facility] [address] [place] [address], [address], 03/15/2019 08:10:03 03/08/20 19 03/14/2019 hsv (1+2) [...] stics have been deter mined by [employer]. Perfo rmanc e sravani cteri stics refer to the yaritza tical perfo rmanc e of the test. TEST PERFO RMED AT: [facility] [address] [place] [address] SHEILA Rivera MD Not Available [facility] [address] [place] [address], [address], 03/15/2019 08:10:03 03/08/2003/14/2019 hsv (1+2) Ab, serum hsv 2 IgM NEGATI VE negati ve normal TEST PERFO RMED AT: [facility] [address] [place] [address] SHEILA Rivera MD Not Available [facility] [address] [place] [address], [address], 03/15/2019 08:10:03 03/08/2003/11/2019 CT + NG RNA, PCR, unspe cifie d speci men chlamydia trachomatis NOT DETECT ED not detect ed normal Not Available [facility] [address] [place] [address], [address], 03/11/2019 17:55:35 03/08/20 19 03/11/2019 CT + NG RNA, PCR, unspe cifie d speci men N. gonorrhoeae NOT DETECT ED not detect ed normal Not Available [facility] [address] [place], [address], 03/11/2019 17:55:35 03/08/20 19 03/11/2019 CT + [...] Diagn ostic s. TEST PERFO RMED AT: [facility] [address] [address] SHEILA Rivera MD Not Available [facility] [address] [place], [address], 03/11/2019 17:55:35 03/08/2003/11/2019 HPV DNA, high- risk [...] purpo ses. TEST PERFO RMED AT: [facility] [address] [address] SHEILA Rivera MD Not Available [facility] [address] [place], [address], 03/11/2019 17:56:01 03/08/20 19 03/08/2019 cytol ogy, vagin al/ce rvica l gynecologica l cytology procedure SEE BELOW [facility] Depar tment of Patho logy GYNEC OLOGI CAMRON CYTOL OGY REPOR T NAME: LOREN RODRIGUEZ PATHO LOGY NO.: [id number] 4 Copy to: [facility] E OF SPECI MEN: VAGIN AL-TH [...] s. Page 1 of 1 Not Available [facility] [address] [place], [address], 03/18/2019 10:31:03 05/13/20 19 05/13/2019 surgi camron patho logy study surgical SEE BELOW Depar tment of Patho logy Surgi camron Patho logy Repor t NAME: LOREN RODRIGUEZ PATH. :[id number] Copy to: Diagn osis: Left labia l [...] 13:07 Page 1 of 1 Not Available [facility] [address] [place] [address], [place], [address], 05/15/2019 13:08:47 Result Notes None recorded. Problems No Known Problems Procedures Surgical History Date Name Laterality Status Provider Name and Address Organization Details Recorded Time 05/13/20 19 Excision Genital Lesion completed JASMYNE DUNBAR, DO [address] [place], [address], [facility] 05/13/2019 11:50:23 03/08/20 19 Pap Smear collection completed LASHAWN GR, COIL MACHINE OPERATOR [address] [place], [address], [facility] 03/08/2019 12:04:29 03/08/20 19 Date of Last Pap Smear completed [facility] 03/08/2019 10:45:25 03/05/20 18 Pap Smear collection completed LASHAWN GR, COIL MACHINE OPERATOR [address] [place], [address], [facility] 03/05/2018 10:54:05 05/26/20 17 Date of Last Colonoscopy completed [facility] 03/08/2019 10:46:07 Cholecystectomy completed [facility] 03/05/2018 09:04:42 Hysterectomy/cayden e vagina completed [facility] 03/05/2018 09:04:55 Imaging Results None recorded. Procedure Notes None recorded. Medical Equipment None Reported. Allergies Allergen ID Allergen Name Allergen Category Reaction Reaction Severity Criticality Documentation Date Start Date Code Code System Note Provider Name and Address Organization Details Recorded Time 894090 codeine medicatio n Not available Not available Not available 08/19/20162010 0896 RxNorm Comme nt: Creat ed By: Diana Park ed Date: 2010 11:05 :12 AM; Not Available [facility] 6 06:06:32 Medications Name Sig Start Date [...] Updated DateTime 03/05/2018 149.86 cm 27.5 kg/m2 10731.56 g 100 mm[Hg] 70 mm[Hg] Lidia Vega [facility] 8 10:20:32 Date Recorded Body height Body mass index (BMI) Body weight Systolic blood pressure Diastolic blood pressure Provider Name and Address Organization Details Last Updated DateTime 03/08/2019 149.86 cm 25.4 kg/m2 59612.64 g 136 mm[Hg] 84 mm[Hg] Jasmyne Cruz [facility] 9 10:44:14 Date Recorded Body height Body mass index (BMI) Body weight Systolic blood pressure Diastolic blood pressure Provider Name and Address Organization Details Last Updated DateTime 05/13/2019 149.86 cm 26 kg/m2 71222.62 g 100 mm[Hg] 70 mm[Hg] Isabella Alvares [facility] 9 09:02:54 Date Recorded Body height Body mass index (BMI) Body weight Systolic blood pressure Diastolic blood pressure Provider Name and Address Organization Details Last Updated DateTime 05/20/2019 149.86 cm 26 kg/m2 86378.62 g 110 mm[Hg] 74 mm[Hg] Isabella Alvares [facility] 9 09:33:42 Social History Question Answer Notes LastModified by Organizat ion Details LastModified Time Tobacco Smoking Status Current Every Day [facility]/05/2018 10:17:26 What Is Your Level Of Caffeine Consumption? Moderate [email or web address] Information not available 03/05/2018 What Was The Date Of Your Most Recent Tobacco Screening? 03/08/2019 Information not available 11/12/2019 How Much Tobacco Do You Smoke? 1.5 PPD [email or web address] Information not available 03/05/2018 Has Tobacco Cessation Counseling Been Provided? Yes Information not available 03/05/2018 On What Date Was Tobacco Cessation Counseling Provided? 03/08/2019 [email or web address] Information not available 03/08/2019 Do You Have Symptoms Associated With Zika Virus (fever, Rash, Joint Pain, Or Conjunctivitis) ? No [email or web address] Information not available 03/05/2018 Have You Recently (within The Last 12 Weeks, Or During A Current ) Traveled To Or Lived In A Zika-affected Area? No [email or web address] Information not available 03/05/2018 Sex: Unknown Functional Status Question Answer Note LastModified by Organization D etails LastModified Time What is your level of alcohol consumption? None [email or web address] Information not available 03/05/2018 Mental Status None recorded. Family History Relationship Description Onset Age of this Age Resolved Age Notes LastModified by Organization Details LastModified Time Unspecified Relation Heart disease Acute Myocar dial Infarc tion Not available 03/05/2018 09:02:52 Unspecified Relation Hyperlipidem ia Not available 03/05 09:03:40 Unspecified Relation Arthritis [email or web address] Not available 02/23 09:03:54 Unspecified Relation Glaucoma Not available 03/05 09:04:03 Unspecified Relation Disorder of thyroid gland [email or web address] Not available 03/05 09:04:11 Maternal Grandfather Diabetes mellitus Not available 03/05 10:16:34 Mother Family history of malignant neoplasm Liver, Lung, colon, Uterin e [email or web address] Not available 03/05/2018 10:17:11 Mother Hypertensive disorder [email or web address] Not available 03/05 10:16:38 Mother Malignant tumor of colon [email or web address] Not available 2018 10:47:04 Medical History Condition Response Other Y Depression Y Cancer Y Stroke N Hoarseness N Headaches N Kidney Disease N Heart Problems N Hepatitis N Chicken Pox Y Lung Disease N Shortness of Breath Y High Cholesterol N Liver Disease N Thyroid Problems N Immune System Disorder N Hyperlipidemia N Sleep Apnea N Hypertension N Gynecological History Statement/Question Response Date of [...] SNOMED-CT Code Diagnosis ICD10 Code Diagnosis Note [id number] QM_[facility] [place] [address] 12/27/2016 00:10:42 12/27/2016 00:10:42 [id number] [place] [address] [place] [address] 03/05/2018 10:04:24 03/05/2018 12:53:43 Gynecologic examination 88741337 Z01.419 Discussed SBEs Screening for malignant neoplasm of breast 353577825 Z12.31 History of malignant neoplasm of cervix 904242763 Z85.41 Pap smear pending Body mass index 25-29 - overweight 563595684 Z68.27 Handout given with diet and exercise recommenda tions Cyst of vulva 45778945 N 90.7 Discussed Epsom salts baths, warm compresses , Dial soap If become large or bothersome to RTC [id number] [facility] [address] [place] [address] 03/08/2019 10:13:07 03/08/2019 12:04:51 Gynecologic examination 57369484 Z01.419 Discussed SBEs Screening for malignant neoplasm of breast 146970949 Z12.31 Stressed importance of annual screening History of malignant neoplasm of cervix 586331691 Z85.41 Pap smear and HPV pending Body mass index 25-29 - overweight 856381556 Z68.27 Handout given with diet and exercise recommenda tions Cyst of vulva 88947586 N 90.7 Attempted I&D today but cyst w/o purulent d/c - tissue noted after incision made Good hemostasis with silver nitrate F/u with Dr. Coley for removal Venereal d isease screening 488042084 Z11.3 Mastodynia of bilateral breasts 9644730402 7016710 N64.4 Discussed monthly SBEs Decrease caffeine Vit E and or evening primrose oil Adnexal tenderness 87766 3002 R10.2 Discussed exam findings States pain always occurs monthly x 1 wk then resolves spontaneou sly Present since total hyst If pain does not resolve, or if becomes bothersome , must call for pelvic u/s for further evaluation - pt v/u [id number] DO JOSTIN BAKER [facility] [address] [place] [address] 05/13/2019 08:54:25 05/13/2019 09:54:59 Labial cyst 395144031 N90.7 RTO 2 days to evaluate stitches [id number] DO JOSTIN BAKER [facility] [address] [place] [address] 05/20/2019 09:17:05 05/20/2019 10:10:26 Health Concerns Section Related Observation LastModified by Organization Detai ls LastModified Time None Recorded Concern Status LastModified by Organization Details LastModified Time None Recorded Advance Directives Directive None Recorded Payers Insurance Date Sequence Insurance Name Policy Number Policy Lamb Covered Member ID Lamb Member ID Guarantor Name 08/19/2020 1 [place] [id number] Linda Mccormick [id number] Linda Mccormick 08/19/2020 1 [place] [id number] Linda Mccormick [id number] Linda Mccormick Notes Date Note Type [...] 1st appeared several months ago LASHAWN GR, COIL MACHINE OPERATOR [address] [place], [address], [facility] 03/05/2018 17:02:01 03/08/2019 text/html Presents for aaliyah [...] today just to be sure LASHAWN GR, COIL MACHINE OPERATOR [address] [place], [address], [facility] 03/08/2019 17:55:55 05/13/2019 text/html Pt is a [...] Very tender. JASMYNE DUNBAR, DO [address] [place], [address], [facility] 05/13/2019 11:52:41 05/20/2019 text/html Pt is a 58yo who was here last week for removal of a left labial growth. Pt has healed fine, no complaints. Minimal bleeding. JASMYNE DUNBAR DO [address] [place], [address], [facility] 05/20/2019 17:25:27 OBGyn Episode No OBEpisode recorded.
== END 2025-03-21 23:59 | disposition home or self-care (01) ==
LOC: RT 10:46
PROVIDERS: PCP Nurse Practitioner Family; Visit Provider Nurse Practitioner Family
DX: I07.1 Rheumatic tricuspid insufficiency (principal); I25.10 Atherosclerotic heart disease of native coronary artery without angina pectoris; I10 Essential (primary) hypertension; R94.31 Abnormal electrocardiogram [ECG] [EKG]
CPT/HCPCS: 93306

== ENCOUNTER 2025-04-03 14:42 | Outpatient (CLI) | payer OTHER, SELFPAY ==
--- OUTSIDE RECORDS SUMMARY | 2025-04-03 14:44 | XMS_ITS | Clinical Summary ---
Author Organization Healthcare Address [address] [place] [address] Care Team Providers Care Test Man Name Role Phone MonicamarcSureshEloisenaseem Butts APRN Primary Care Provider [phone] Family History Medical History Relation Name Comments [...] of Treatment Not on file Insurance [facility] [id number] ANTHEM Care Teams Test Man Relationship Specialty Start Date End Date Eloise Wang APRN [address] [place] [address] PCP - General 02/05/21
--- OUTSIDE RECORDS SUMMARY | 2025-04-03 14:44 | XMS_ITS | Data Portability ---
Author Organization [facility] BERNA Ferguson [place] CLOSED Address [address] [facility] [address] [place] [address] Assessment No assessment recorded. Plan of Treatment Reminders Order Date Submit Date Provider Last Modified By Organization Details Last Modified Time Details Appointments None recorded. Lab surgical pathology study 2018 019 [facility], [address] [place] [address], [address], 9 13:08:47 cytology, vaginal/cer vical 2018 [address] [facility], [address] [place] [address], [address], 9 13:14:22 HPV DNA, high-risk 2018 019 [facility], [address] [place] [address], [address], 9 17:56:01 RPR (rapid plasma reagin), serum 2018 019 [facility], [address] [place] [address], [address], 9 12:59:13 HIV (1+2) Ab screen, serum 2018 019 [facility], [address] [place] [address], [address], 9 09:41:10 hepatitis (A+B+C) panel, serum 2018 019 [facility], [address] [place] [address], [address], 9 19:55:06 hsv (1+2) Ab, serum 2018 019 [facility], [address] [place] [address], [address], 9 16:00:40 CT + NG RNA, PCR, unspecified specimen 2018 019 [facility], [address] [place] [address], [address], 9 17:55:35 cytology, vaginal/cer vical [address] [facility], [address] [place] [address], [address], 8 16:31:51 HPV DNA, high-risk 2017 018 [facility], [address] [place] [address], [address], 8 13:20:45 Referral None recorded. Procedures None recorded. Surgeries None recorded. Imaging MAMMO, screening, tomosynthes is, bilateral, w/ CAD [address] [facility], [address] [place] [address] , [place], [address], 9 09:03:25 MAMMO, screening, tomosynthes is, bilateral, w/ CAD [address] [facility], [address] [place] [address] , [place], [address], 8 16:33:56 Medication Orders None recorded. Patient TargetsNo targets recorded. Patient Instructions Encounter Date Encounter Id Patient Instructions Last Modified By Organization Details Last Modified Time 03/05/2018 [id number] body mass index: care instructions [email or web address] Not available 03/05/2018 10:58:34 Spent 15 total minutes with the patient today in counseling regarding information documented in my assessment and plan above. The time represents more than 50% of the encounter. Not available 03/05/2018 10:56:05 03/08/2019 [id number] body mass index: care instructions Not available 03/08/2019 11:59:27 Spent 20 total minutes with the patient today. Greater than 50% of this time was spent counseling/coord ination of care as documented in my assessment and plan above. [email or web address] Not available 03/08/2019 12:06:54 05/20/2019 [id number] reviewed pathology from labial mass. It was [...] rmed using the APTIM A HPV Assay ([employer] . This assay detec ts [...] AT: [facility] [address] [place] [address] SHEILA Rivera MD Not Available [facility] [address] [place], [address], 03/10/2018 13:20:45 03/05/20 18 03/05/2018 cytol ogy, vagin al/ce rvica l gynecologica l cytology procedure SEE BELOW [facility] Depar tment of Patho logy GYNEC OLOGI CAMRON CYTOL OGY REPOR T NAME: LOREN RODRIGUEZ PATHO LOGY NO.: [id number] 1 [facility] OF [facility] MEN: VAGIN AL-TH [...] to tree t in prima ry cervi cmaron cance r scree marilin of ThinP rep(R ) Pap test slide s. Page 1 of [address] Not [address] [facility] [address] [place], [address], 03/19/2018 09:25:33 03/08/20 19 03/08/2019 hepat itis (A+B+ C) panel , serum hepatitis B surface Ag NON-RE ACTIVE non-re active normal Not Available [facility] [address] [place], [address], 03/11/2019 12:10:38 03/08/2003/11/2019 hepat itis (A+B+ C) panel , serum hepatitis A Ab, IgM NON-RE ACTIVE non-re active normal TEST PERFO RMED AT: [facility] [email or web address] [facility] [address] [place] [address] SHEILA Rivera MD Not Available [facility] [address] [place] [address], [address], 03/11/2019 12:10:38 03/08/2003/11/2019 hepat itis (A+B+ C) panel , serum hepatitis B core Ab,IgM NON-RE ACTIVE non-re active normal TEST PERFO RMED AT: [facility] [email or web address] [facility] [address] [place] [address] SHEILA Rivera MD Not Available [facility] [address] [place] [address], [address], 03/11/2019 12:10:38 03/08/2003/11/2019 hepat itis (A+B+ C) panel , serum hcab, reflex viral RNA qt NON-RE ACTIVE non-re active normal Not Available [facility] [address] [place] [address], [address], 03/11/2019 12:10:38 03/08/2003/11/2019 hepat itis (A+B+ C) panel , serum hcab cutoff 0.02 <1.00 normal HCV antib lacey was non-r eacti ve. There is no labor atory evide nce of HCV infec tion. In most cases , no furth er actio n is requi red. Howev er, if recen t HCV expos ure is suspe cted, a test for HCV RNA (test code 86849 ) is sugge sted. For addit ional infor matio n pleas e refer to http: //[facility] n.[facility] stdia gn[facility].c om/fa q/FAQ 22v1 (This link is being provi ded for infor matio nal/ educa gisell l purpo ses only. ) TEST PERFO RMED AT: [facility] [address] [place] [address] SHEILA Rivera MD Not Available [facility] [place], [address], 03/11/2019 12:10:38 03/08/20 19 03/11/2019 HIV (1+2) [...] matio n pleas e refer to http: //[facility] n.que stdia gnost ics.c om/fa q/FAQ 106 (This link is being provi ded for infor matio nal/ educa gisell l purpo ses only. ) The perfo rmanc e of this assay has not been clini sheri valid ated in patie nts less than 2 years old. TEST PERFO RMED AT: [facility] [address] [place] [address] SHEILA Rivera MD Not Available [facility] [address] [place], [address], 03/11/2019 09:41:10 03/08/2003/11/2019 RPR (rapi d plasm a reagi n), serum RPR NON-RE ACTIVE nonrea ctive normal Not Available [facility] [address] [place], [address], 03/11/2019 12:59:13 03/08/2003/11/2019 hsv (1+2) Ab, serum hsv 1 IgG 32.80 index high Not Available [facility] [address] [place], [address], 03/15/2019 08:10:03 03/08/2003/11/2019 hsv (1+2) Ab, serum [...] PERFO RMED AT: [facility] [place] [address] [place] [address] SHEILA Rivera MD Not Available [facility] [address] [place], [address], 03/15/2019 08:10:03 03/08/20 19 03/14/2019 hsv (1+2) Ab, serum hsv 1 IgM POSITI VE negati ve abnormal Not Available [facility] [address] [place] [address], [address], 03/15/2019 08:10:03 03/08/20 19 03/14/2019 hsv (1+2) [...] stics have been deter mined by [facility] [employer] [facility]. Perfo rmanc e sravani cteri stics refer to the yaritza tical perfo rmanc e of the test. TEST PERFO RMED AT: [facility] [address] [facility] [address] SHEILA Rivera MD Not Available [facility] [address] [place] [address], [address], 03/15/2019 08:10:03 03/08/2003/14/2019 hsv (1+2) Ab, serum hsv 2 IgM NEGATI VE negati ve normal TEST PERFO RMED AT: [facility] [address] [place] [address] SHEILA Rivera MD Not Available [facility] [address] [place] [address], [address], 03/15/2019 08:10:03 03/08/2003/11/2019 CT + NG RNA, PCR, unspe cifie d speci men chlamydia trachomatis NOT DETECT ED not detect ed normal Not Available [facility] [address] [place] [address], [address], 03/11/2019 17:55:35 03/08/20 19 03/11/2019 CT + NG RNA, PCR, unspe cifie d speci men N. gonorrhoeae NOT DETECT ED not detect ed normal Not Available [facility] [address] [place], [address], 03/11/2019 17:55:35 03/08/20 19 03/11/2019 CT + [...] Diagn ostic s. TEST PERFO RMED AT: [facility] [address] [address] SHEILA Rivera MD Not Available [facility] [address] [place], [address], 03/11/2019 17:55:35 03/08/2003/11/2019 HPV DNA, high- risk [...] purpo ses. TEST PERFO RMED AT: [facility] [address] [address] SHEILA Rivera MD Not Available [facility] [address] [place], [address], 03/11/2019 17:56:01 03/08/20 19 03/08/2019 cytol ogy, vagin al/ce rvica l gynecologica l cytology procedure SEE BELOW [facility] Depar tment of Patho logy GYNEC OLOGI CAMRON CYTOL OGY REPOR T NAME: LOREN RODRIGUEZ PATHO LOGY NO.: [id number] 4 [facility] SPECI MEN: VAGIN AL-TH [...] 1 of [address] Not [address] [facility] [address] [place], [address], 03/18/2019 10:31:03 05/13/20 19 05/13/2019 surgi camron patho logy study surgical SEE BELOW Depar tment of Patho logy Surgi camron Patho logy Repor t NAME: LOREN RODRIGUEZ PATH. :[id number] Copy to: Diagn osis: Left labia l [...] tted entir guero in casse tte 2. ECLIO 05/14 11:52 AM Micro scopi c Descr [...] 1 of 1 Not [address] [facility] [address] [place] [address], [place], [address], 05/15/2019 13:08:47 Result Notes None recorded. Problems No Known Problems Procedures Surgical History Date Name Laterality Status Provider Name and Address Organization Details Recorded Time 05/13/20 19 Excision Genital Lesion completed JASMYNE DUNBAR, DO [address] [place], [address], [facility] 05/13/2019 11:50:23 03/08/20 19 Pap Smear collection completed LASHAWN GR, ELECTRICIAN YARD [address] [place], [address], [facility] 03/08/2019 12:04:29 03/08/20 19 Date of Last Pap Smear completed [facility] 03/08/2019 10:45:25 03/05/20 18 Pap Smear collection completed LASHAWN GR, ELECTRICIAN YARD [address] [place], [address], [facility] 03/05/2018 10:54:05 05/26/20 17 Date of Last Colonoscopy completed [facility] 03/08/2019 10:46:07 Cholecystectomy completed [facility] 03/05/2018 09:04:42 Hysterectomy/cayden e vagina completed [facility] 03/05/2018 09:04:55 Imaging Results None recorded. Procedure Notes None recorded. Medical Equipment None Reported. Allergies Allergen ID Allergen Name Allergen Category Reaction Reaction Severity Criticality Documentation Date Start Date Code Code System Note Provider Name and Address Organization Details Recorded Time 644103 codeine medicatio n Not available Not available Not available 08/19/20162010 7638 RxNorm Comme nt: Creat ed By: Diana Park ed Date: 2010 11:05 :12 AM; Not Available [facility] 6 06:06:32 Medications Name Sig Start Date [...] Body mass index (BMI) Body weight Systolic And Diastolic Provider Name and Address Organization Details Last Updated DateTime 03/05/2018 149.86 cm 27.5 kg/m2 58862.56 g 100/70 mm[Hg] Lidia Vega [facility] 03/05/2018 10:20:32 Date Recorded Body height Body mass index (BMI) Body weight Systolic And Diastolic Provider Name and Address Organization Details Last Updated DateTime 03/08/2019 149.86 cm 25.4 kg/m2 29866.64 g 136/84 mm[Hg] Jasmyne Anthony [facility] 03/08/2019 10:44:14 Date Recorded Body height Body mass index (BMI) Body weight Systolic And Diastolic Provider Name and Address Organization Details Last Updated DateTime 05/13/2019 149.86 cm 26 kg/m2 32592.62 g 100/70 mm[Hg] Isabella Alvares [facility] 05/13/2019 09:02:54 Date Recorded Body height Body mass index (BMI) Body weight Systolic And Diastolic Provider Name and Address Organization Details Last Updated DateTime 05/20/2019 149.86 cm 26 kg/m2 51474.62 g 110/74 mm[Hg] Isabella Alvares [facility] 05/20/2019 09:33:42 Social History Question Answer Notes LastModified by Organizat ion Details LastModified Time Tobacco Smoking Status Current Every Day Smoker [facility] 03/05/2018 10:17:26 What Is Your Level Of Caffeine Consumption? Moderate Information not available 03/05/2018 What Was The Date Of Your Most Recent Tobacco Screening? 03/08/2019 Information not available 11/12/2019 How Much Tobacco Do You Smoke? 1.5 PPD [email or web address] Information not available 03/05/2018 Has Tobacco Cessation Counseling Been Provided? Yes [email or web address] Information not available 03/05/2018 On What Date Was Tobacco Cessation Counseling Provided? 03/08/2019 [email or web address] Information not available 03/08/2019 Do You Have Symptoms Associated With Zika Virus (fever, Rash, Joint Pain, Or Conjunctivitis) ? No Information not available 03/05/2018 Have You Recently (within The Last 12 Weeks, Or During A Current ) Traveled To Or Lived In A Zika-affected Area? No [email or web address] Information not available 03/05/2018 Sex: Unknown Functional Status Question Answer Note LastModified by Organization D etails LastModified Time What is your level of alcohol consumption? None Information not available 03/05/2018 Mental Status None recorded. Family History Relationship Description Onset Age of this Age Resolved Age Notes LastModified by Organization Details LastModified Time Unspecified Relation Heart disease Acute Myocar dial Infarc tion Not available 03/05/2018 09:02:52 Unspecified Relation Hyperlipidem ia [email or web address] Not available 03/05 09:03:40 Unspecified Relation Arthritis Not available 02/23 09:03:54 Unspecified Relation Glaucoma [email or web address] Not available 03/05 09:04:03 Unspecified Relation Disorder of thyroid gland [id number] Not available 03/05 09:04:11 Maternal Grandfather Diabetes mellitus [email or web address] Not available 03/05 10:16:34 Mother Family history of malignant neoplasm Liver, Lung, colon, Uterin e [email or web address] Not available 03/05/2018 10:17:11 Mother Hypertensive disorder [email or web address] Not available 03/05 10:16:38 Mother Malignant tumor of colon [email or web address] Not available 2018 10:47:04 Medical History Condition [...] SNOMED-CT Code Diagnosis ICD10 Code Diagnosis Note [id number] QM_[place] [address] 12/27/2016 00:10:42 12/27/2016 00:10:[id number] [place] [address] 03/05/2018 10:04:24 03/05/2018 12:53:43 Gynecologic examination 17033812 Z01.419 Discussed SBEs Screening for malignant neoplasm of breast 815652505 Z12.31 History of malignant neoplasm of cervix 016422832 Z85.41 Pap smear pending Body mass index 25-29 - overweight 708428764 Z68.27 Handout given with diet and exercise recommenda tions Cyst of vulva 30437430 N 90.7 Discussed Epsom salts baths, warm compresses , Dial soap If become large or bothersome to RTC [id number] [place] [address] 03/08/2019 10:13:07 03/08/2019 12:04:51 Gynecologic examination 20994140 Z01.419 Discussed SBEs Screening for malignant neoplasm of breast 656049264 Z12.31 Stressed importance of annual screening History of malignant neoplasm of cervix 915311765 Z85.41 Pap smear and HPV pending Body mass index 25-29 - overweight 633218822 Z68.27 Handout given with diet and exercise recommenda tions Cyst of vulva 33844375 N 90.7 Attempted I&D today but cyst w/o purulent d/c - tissue noted after incision made Good hemostasis with silver nitrate F/u with Dr. Coley for removal Venereal d isease screening 638299524 Z11.3 Mastodynia of bilateral breasts [id number] 7331323 N64.4 Discussed monthly SBEs Decrease caffeine Vit E and or evening primrose oil Adnexal tenderness 60412 3002 R10.2 Discussed exam findings States pain always occurs monthly x 1 wk then resolves spontaneou sly Present since total hyst If pain does not resolve, or if becomes bothersome , must call for pelvic u/s for further evaluation - pt v/u [id number] DO JOSTIN BAKER [place] [address] [place] [address] 05/13/2019 08:54:25 05/13/2019 09:54:59 Labial cyst 754991024 N90.7 RTO 2 days to evaluate stitches [id number] DO JOSTIN BAKER [place] [address] [place] [address] 05/20/2019 09:17:05 05/20/2019 10:10:26 Health Concerns Section Related Observation LastModified by Organization Detai ls LastModified Time None Recorded Concern Status LastModified by Organization Details LastModified Time None Recorded Advance Directives Directive None Recorded Payers Insurance Date Sequence Insurance Name Policy Number Policy Lamb Covered Member ID Lamb Member ID Guarantor Name 08/19/2020 1 [employer] [id number] Linda Mccormick [id number] Linda Mccormick 08/19/2020 1 [place] [id number] Linda Mccormick [id number] Linda Mccormick Notes Date Note Type [...] 1st appeared several months ago LASHAWN GR, ELECTRICIAN YARD [address] [place], [address], [facility] 03/05/2018 17:02:01 03/08/2019 text/html Presents for [...] and filed for divorce the day after [place] She is doing much better now - has children for support No s/sx of infx, but would like complete testing today just to be sure LASHAWN GR, [address] [place], [address], [facility] 03/08/2019 17:55:55 05/13/2019 text/html Pt is a 58yo P30 23 who is here today because she has a left labial cyst . She saw Lashawn WOODS in February and she tried to I&D the cyst, but didn't get much fluid out. It looks like the cyst is an infected condyloma and not actually part of the labia. Very tender. JASMYNE DUNBAR DO [address] [place], [address], [facility] 05/13/2019 11:52:41 05/20/2019 text/html Pt is a 58yo who was here last week for removal of a left labial growth. Pt has healed fine, no complaints. Minimal bleeding. JASMYNE DUNBAR DO [address] [place], [address], [facility] 05/20/2019 17:25:27 OBGyn Episode No OBEpisode recorded.
[2025-04-03 15:39] LABS: Hematocrit 43.1 % (37.0-47.0); Hemoglobin 13.7 g/dL (12.2-16.2); Immature Granulocytes % 0.2 %; Mean Corpuscular HGB Conc 31.8 g/dL (31.8-35.4); Mean Corpuscular Hemoglobin 29.0 pg (27.0-31.2); Mean Corpuscular Volume 91.3 fl (81-99); Nucleated Red Blood Cells % 0 %; Platelet Count 201 K/mm3 (142-424); Red Blood Count 4.72 M/mm3 (4.20-5.40); Red Cell Distribution Width-SD 42.5 fL; White Blood Count 5.8 K/mm3 (4.8-10.8)
[2025-04-03 16:10] LABS: Alanine Aminotransferase 18 U/L (12-78); Albumin Level 4.0 g/dl (3.5-5.0); Alkaline Phosphatase 65 U/L (38-126); Anion Gap 12.0 mEq/L (5-15); Aspartate Amino Transferase 21 U/L (14-36); Bilirubin,Direct 0.2 mg/dl (0.0-0.4); Bilirubin,Indirect 0.3 mg/dL (0.0-0.9); Bilirubin,Total 0.5 mg/dl (0.2-1.3); Bilirubin,Unconjugated 0.3 mg/dL (0.0-1.1); Blood Urea Nitrogen 12 mg/dl (7-17); Calcium 9.3 mg/dl (8.4-10.2); Carbon Dioxide 32 mmol/L (22.0-30.0); Chloride 101 mmol/L (98-107); Cholesterol 109 mg/dl (140-200); Creatinine,Serum 0.80 mg/dl (0.52-1.04); Estimated Glomerular Filt Rate 73 ml/min (>60); GFR (African American) 88 ML/MIN (>60); Glucose 72 mg/dl (74-100); HDL Cholesterol 42 mg/dl (40-60); Magnesium 2.0 mg/dl (1.6-2.3); Potassium 4.0 mmoL/L (3.5-5.1); Sodium 141 mmol/L (136-145); Total Protein,Serum 6.2 g/dl (6.3-8.2); Triglycerides 127 mg/dl (30-150)
[2025-04-03 16:27] LABS: Free T4 (Free Thyroxine) 0.87 ng/dl (0.78-2.19)
[2025-04-03 16:41] LABS: Thyroid Stimulating Hormone 0.95 uIU/mL (0.465-4.68)
== END 2025-04-03 23:59 | disposition home or self-care (01) ==
LOC: LAB 14:43
PROVIDERS: PCP Nurse Practitioner Family; Visit Provider Physician Assistant
DX: I95.9 Hypotension, unspecified (principal); I27.20 Pulmonary hypertension, unspecified; I25.118 Atherosclerotic heart disease of native coronary artery with other forms of angina pectoris; I10 Essential (primary) hypertension
CPT/HCPCS: 36415; 80048; 80061; 80076; 83735; 84439; 84443; 85025

== ENCOUNTER 2025-05-06 07:55 | Day surgery (SDC) | payer OTHER, SELFPAY ==
[2025-05-06] VITALS (11 sets, daily range): BP systolic 86–132; BP diastolic 48–75; PULSE 54–83; RESP 16–20; TEMP 36.7; O2SAT 95–100; BMI 25.7
--- NOTE | 2025-05-06 06:59 | IR_ITS ---
APPROVED REPORT Patient Location: Outpatient PROCEDURES Left heart catheterization Left ventriculogram Selective coronary angiogram INDICATION Angina pectoris, Known coronary artery disease, Abnormal Myoview Informed consent was obtained prior to the procedure. COMPLICATIONS NONE Estimated Blood Loss: LESS THAN 10 ML TECHNIQUE One percent lidocaine used to anesthetize the right anterior aspect of the wrist. The right radial artery was accessed via the Seldinger technique. A 6 Kyrgyz sheath was placed in the right radial artery. 2.5 mg of Verapamil, 800 mcg of nitroglycerin, 1mg Lidocaine and 5000 U Heparin were given through the arterial sheath. The JL3 catheter was also used to perform left heart catheterization, left ventriculogram and selective coronary angiogram. At the end of the procedure the sheath was removed good hemostasis was achieved using Traclet band, patient was transferred to the postop holding area in stable condition. ANGIOGRAPHIC RESULTS The left main artery Normal The left anterior descending artery Proximal to mid vessel 20% stenosis The circumflex artery Mild smooth 20% luminal irregularity The right coronary artery Has a proximal concentric 40 to 50% stenosis The CHAUDHARI ventriculogram reveals Normal 65% The left ventricular end-diastolic pressure 20 mmHg IMPRESSION Coronary artery disease which is unchanged from 2020 Normal ejection fraction Mildly elevated LVEDP PLAN 1. Recommend referral to Dr. Cook for COPD evaluation 2. Medical management for coronary artery disease Electronically signed by : Kuldip Patino MD 05/06/2025 12:32:39
[2025-05-06 08:18] LABS: Hematocrit 41.7 % (37.0-47.0); Hemoglobin 13.7 g/dL (12.2-16.2); Immature Granulocytes % 0.1 %; Mean Corpuscular HGB Conc 32.9 g/dL (31.8-35.4); Mean Corpuscular Hemoglobin 30.2 pg (27.0-31.2); Mean Corpuscular Volume 91.9 fl (81-99); Nucleated Red Blood Cells % 0 %; Platelet Count 205 K/mm3 (142-424); Red Blood Count 4.54 M/mm3 (4.20-5.40); Red Cell Distribution Width-SD 41.8 fL; White Blood Count 7.4 K/mm3 (4.8-10.8)
[2025-05-06 08:30] LABS: Anion Gap 7.8 mEq/L (5-15); Blood Urea Nitrogen 11 mg/dl (7-17); Calcium 8.8 mg/dl (8.4-10.2); Carbon Dioxide 30 mmol/L (22.0-30.0); Chloride 107 mmol/L (98-107); Creatinine Clearance Estimated 53 mL/min (50-200); Creatinine,Serum 0.80 mg/dl (0.52-1.04); Estimated Glomerular Filt Rate 73 ml/min (>60); GFR (African American) 88 ML/MIN (>60); Glucose 87 mg/dl (74-100); Potassium 3.8 mmoL/L (3.5-5.1); Sodium 141 mmol/L (136-145)
[2025-05-06] MEDS: LIDOCAINE 1% 10ML MDV 10 ML IJ (11:07)
[2025-05-06] MEDS: HEPARIN 1,000 UNITS/500ML NS (CATH LAB) 3000 UNIT IV (11:07)
[2025-05-06] MEDS: 0.9 % SODIUM CHLORIDE 500 ML 25 ML IV (11:08)
[2025-05-06] MEDS: HEPARIN 1,000 UNITS/ML 10ML VIAL (CATH LAB) 5000 UNIT IV (11:08)
[2025-05-06] MEDS: VERAPAMIL 2.5MG/ML 2ML VIAL 2.5 MG IV (11:08)
[2025-05-06] MEDS: NITROGLYCERIN 800MCG/8ML SYR (CATH LAB) 800 MCG IA (11:08)
[2025-05-06] MEDS: MIDAZOLAM HCL 1MG/ML 5ML VIAL 1 MG IV (11:26)
[2025-05-06] MEDS: FENTANYL 100MCG/2ML VIAL 50 MCG IV (11:26)
[2025-05-06] MEDS: IOPAMIDOL-370 (76%);100ML BOTTLE 50 ML IV (11:48)
== END 2025-05-06 14:41 | disposition home or self-care (01) ==
PROVIDERS: PCP Nurse Practitioner Family; Visit Provider Internal Medicine
PROC: 4A023N7 Measurement of Cardiac Sampling and Pressure, Left Heart, Percutaneous Approach (ICD-10-PCS; CPT 93452; principal; 2025-05-06 07:30)
DX: I25.118 Atherosclerotic heart disease of native coronary artery with other forms of angina pectoris (principal); R94.39 Abnormal result of other cardiovascular function study; R94.31 Abnormal electrocardiogram [ECG] [EKG]; R06.00 Dyspnea, unspecified; I10 Essential (primary) hypertension; J44.9 Chronic obstructive pulmonary disease, unspecified; E78.2 Mixed hyperlipidemia; F17.210 Nicotine dependence, cigarettes, uncomplicated; Z79.82 Long term (current) use of aspirin; Z79.899 Other long term (current) drug therapy; Z88.5 Allergy status to narcotic agent
CPT/HCPCS: 80048; 85025; 93458; 99152; C1725; C1769; J1200; J1644; J3010; J7040; Q9967

== ENCOUNTER 2025-05-23 08:43 | Outpatient (CLI) | payer OTHER, SELFPAY ==
[2025-05-23 13:30] LABS: Coronavirus 19, PCR Not Detected (NotDetected); Influenza A, PCR Not Detected (NotDetected); Influenza B, PCR Not Detected (NotDetected)
--- OUTSIDE RECORDS SUMMARY | 2025-05-26 08:45 | XMS_ITS | Clinical Summary ---
Author Organization Healthcare Address [address] [place] [address] Care Team Providers Care General Dentist/Owner Name Role Phone MonicamarcSureshEloisenaseem Butts APRN Primary Care Provider [phone] Family History Medical History Relation Name Comments [...] of Treatment Not on file Insurance [facility] [id number] ANTHEM Care Teams General Dentist/Owner Relationship Specialty Start Date End Date Eloise Wang APRN [address] [place] [address] PCP - General 02/05/21
--- OUTSIDE RECORDS SUMMARY | 2025-05-26 08:45 | XMS_ITS | Clinical Summary ---
Author Organization [facility] Address [address] [place] [address] Care Team Providers Care Facility Maintenance Technician Name Role Phone Wendy Lala TEODORA Primary Care Provider + [phone] Allergies Active Allergy Reactions Criticality Noted Date Comments Codeine Anaphylaxis High 01/11/2011 Medications rosuvastatin (CRESTOR) 20 MG tablet 3 Active metoprolol succinate XL (TOPROL-XL) 25 MG 24 hr tablet 3 Active losartan (COZAAR) 50 MG tablet 3 Active aspirin 81 MG chewable tablet Asprin Ec Low Dose PRN Active clobetasol (TEMOVATE) 0.05 % cream Apply 1 application topically to the appropriate area as directed 2 (Two) Times a Day. 60 g 1 3 Active estradiol (ESTRACE VAGINAL) 0.1 MG/GM vaginal cream Insert 1 gm intravaginally 2 times each week at bedtime. 1 each 4 3 Active Active Problems No known active problems Family History Medical History Relation Name Comments Colon cancer Maternal Grandmother Osteoporosis Maternal Grandmother Colon cancer Mother Osteoporosis Mother Relation Name Status Comments Maternal Grandmother Mother Social History Tobacco Use Types Packs/Day Years Used Date Smoking Tobacco: Every Day Cigarettes 2 45 Smokeless Tobacco: Never Tobacco Cessation:Counseling Given: Not Answered Alcohol Use Standard Drinks/Week Comments Never 0 (1 standard drink = 0.6 oz pur e alcohol) Abuse Screen Answer Date Recorded Unsafe at Home or Work/School Not on file Feels Threatened by Someone? Not on file 07/2023 Does Anyone Keep You from Co ntacting Others or Doint Things Outside the Home? Not on file 07/05/2023 Physical Sign of Abuse Present Not on file 1 Housing Stability Answer Date Recorded Current Living Arrangements Not on file 06/25 Potentially Unsafe Housing Conditions Not on maryellen e 07/05/2023 Family and Community Support Answer Silver e Recorded Help with Day-to-Day Activities Not on file 07/05/2023 Lonely or Isolated Not on file 07/05/2023 Employment Answer Date Recorded Do you want help finding or keeping work or a trudy b? Not on file 07/05/2023 Disabilities Answer Date Recorded Concentrating, Remembering, or Making Decisions Difficulty Not on file 07/05/2023 Doing Errands Independently Difficulty Not on fi le 07/05/2023 Education Answer Date Recorded Help with school or training? Not on file Preferred Language Not on file 07/05/2023 Comments No Sex and Gender Information Value Date Recorded Sex Assigned at Not on file Legal Sex Female 12:26 PM EDT Gender Identity Not on file Sexual Orientation Not on file Last Filed Vital Signs Vital Sign Reading Time Taken Comments Blood Pressure 118/70 11/29/2022 10:13 AM EST Pulse - - Temperature - - Respiratory Rate 16 11/29/2022 10:13 AM EST Oxygen Saturation - - Inhaled Oxygen Concentration - - Weight 61.2 kg (135 lb) 11/29/2022 10:13 AM EST Height - - Body Mass Index - - Plan of Treatment Health Maintenance Due Date Last Done Comments Pneumococcal Vaccine 50+ (1 of 2 - PCV) 1981 TDAP/TD VACCINES (1 - Tdap) 1981 MAMMOGRAM 2002 COLOGUARD 2007 COLON CANCER SCREENING 5 YEA R SIGMOIDOSCOPY 2007 COLONOSCOPY 2007 COLORECTAL CANCER SCREENING 2007 CT COLONOGRAPHY 2007 FECAL OCCULT BLOOD TEST 2007 FIT Testing (1 year) 2007 ZOSTER VACCINE (1 of 2) 2012 ANNUAL PHYSICAL 11/29/2022 HEPATITIS C SCREENING 11/29/2022 Annual Gynecologic Pelvic an d Breast Exam 12/01/2023 11/29/2022 COVID-19 Vaccine ( season) 05/26/202401/2021, 06/07/2021 INFLUENZA VACCINE 06/25/2025 LUNG CANCER SCREENING Discontinued 07/12/[address] [address] [place] [address] HEALTH PLAN [facility] BLUE [facility] PPO Member Subscriber Plan / Payer (Ef fective 2021-Present) Name:Linda Mccormick Relation to Subscriber:Self Name:Linda Mccormick Payer ID:[id number] (NAIC) Type:Not on file Address: [address] [place] [id number] Care Teams Facility Maintenance Technician Relationship Specialty Start Date End Date Wendy Lala APRN PCP - General Internal Medicine 06/07/16
== END 2025-05-23 23:59 ==
LOC: LAB.DROPOF 05-26 08:43
PROVIDERS: PCP Nurse Practitioner Family; Visit Provider Nurse Practitioner Family
DX: R50.9 Fever, unspecified (principal)
CPT/HCPCS: 87631

== ENCOUNTER 2025-06-10 16:28 | Outpatient (CLI) | payer OTHER, SELFPAY ==
--- NOTE | 2025-06-10 16:31 | XR_ITS ---
PROCEDURE INFORMATION: Exam: XR Left Ribs with PA Chest Exam date and time: 06/10/2025 4:32 PM Age: 64 years old Clinical indication: Chest wall pain; Left; Additional info: Left sided chest pain, shortness of breath TECHNIQUE: Imaging protocol: Radiologic exam of the left ribs with PA chest. Views: 3 views COMPARISON: CR XR CHEST 2V 01/13/2025 3:49 PM FINDINGS: Lungs: Unremarkable. No consolidation. Pleural spaces: Unremarkable. No pleural effusion. No pneumothorax. Heart/Mediastinum: Unremarkable. No cardiomegaly. Bones/joints: Unremarkable. IMPRESSION: No acute findings.
--- OUTSIDE RECORDS SUMMARY | 2025-06-10 16:31 | XMS_ITS | Clinical Summary ---
[facility] Address [address] [place] [address] Care Team Providers Care Mechanical Drafter Name Role Phone Wendy Lala TEODORA Primary Care Provider + [phone] Allergies Active Allergy Reactions Criticality Noted Date [...] Exam 12/01/2023 11/29/2022 COVID-19 Vaccine ( season) 05/26/202501/2021, 06/07/2021 INFLUENZA VACCINE 06/25/2025 LUNG CANCER SCREENING Discontinued 07/12/[address] [place] [address] [place] [address] HEALTH PLAN [facility] BLUE [facility] PPO Member Subscriber Plan / Payer (Ef fective 2021-Present) Name:Linda Mccormick Relation to Subscriber:Self Name:Linda Mccormick Payer ID:[id number] (NAIC) Type:Not on file Address: [address] [place] [id number] Care Teams Mechanical Drafter Relationship Specialty Start Date End Date Wendy Lala APRN PCP - General Internal Medicine 06/07/16
--- OUTSIDE RECORDS SUMMARY | 2025-06-10 16:31 | XMS_ITS | Clinical Summary ---
Author Organization [facility] Address [address] [place] [address] Care Team Providers Care Rib Cutter Name Role Phone MonicamarcSureshEloisenaseem Butts APRN Primary Care Provider [phone] Family History Medical History Relation Name Comments [...] of Treatment Not on file Insurance [facility] [id number] [place] Care Teams Rib Cutter Relationship Specialty Start Date End Date Eloise Wang APRN [address] [place] [place] [address] PCP - General 02/05/21
== END 2025-06-10 23:59 | disposition home or self-care (01) ==
LOC: RAD 16:29
PROVIDERS: PCP Nurse Practitioner Family; Visit Provider Nurse Practitioner Family
DX: R07.9 Chest pain, unspecified (principal); R06.00 Dyspnea, unspecified
CPT/HCPCS: 71101

== ENCOUNTER 2025-06-23 14:18 | Outpatient (CLI) | payer OTHER, SELFPAY ==
--- OUTSIDE RECORDS SUMMARY | 2025-06-23 14:21 | XMS_ITS | Clinical Summary ---
[facility] Address [address] [place] [address] Care Team Providers Care Leather Fitter Name Role Phone Wendy Lala TEODORA Primary Care Provider + [phone] Allergies Active Allergy Reactions Criticality Noted Date [...] 2002 COLOGUARD 2007 COLON CANCER SCREENING 5 YEAR SIGMOIDOSCOPY 2007 COLONOSCOPY 2007 COLORECTAL CANCER SCREENING 2007 CT COLONOGRAPHY 2007 FECAL OCCULT BLOOD TEST 2007 FIT Testing (1 year) 2007 ZOSTER VACCINE (1 of 2) 2012 ANNUAL PHYSICAL 11/29/2022 HEPATITIS C SCREENING 11/29/2022 Annual Gynecologic Pelvic and Breast Exam 12/01/2023 11/29/2022 INFLUENZA VACCINE 04/25/2025 LUNG CANCER SCREENING Discontinued 07/12/2019 Insurance [facility] HEALTH PLAN [facility] PPO Care Teams Leather Fitter Relationship Specialty Start Date End Date Wendy Lala APRN PCP - General Internal Medicine 06/07/16
--- OUTSIDE RECORDS SUMMARY | 2025-06-23 14:21 | XMS_ITS | Clinical Summary ---
Author Organization [facility] Address [address] [place] [address] Care Team Providers Care Mechanical Engineering Teacher Name Role Phone MonicamarcSureshEloisenaseem Butts APRN Primary Care Provider [phone] Family History Medical History Relation Name Comments [...] Not on file Insurance [facility] [id number] [place] Care Teams Mechanical Engineering Teacher Relationship Specialty Start Date End Date Eloise Wang APRN [address] [place] [address] PCP - General 02/05/21
--- NOTE | 2025-06-23 14:30 | CT_ITS ---
FINAL REPORT TECHNIQUE: Axial images were obtained from the lung apex to the mid abdomen by computed tomography. This study was performed with techniques to keep radiation doses as low as reasonably achievable (ALARA). Individualized dose reduction techniques using automated exposure control or adjustment of mA and/or kV according to the patient's size were employed. CLINICAL HISTORY: lung cancer screening CURRENT SMOKER 1PPD X45 YEARS COMPARISON: 05/28/2024 FINDINGS: CHEST CT LOW DOSE CTDI vol (mGy): 2.90 DLP (mGy-cm): 89.34 There is no axillary adenopathy. There is no mediastinal adenopathy. Calcified left hilar nodes are identified. The heart is normal in size. There is no pericardial or pleural effusion. There are moderate changes of centrilobular emphysema. There is scarring in the right middle lobe and lingula. Again identified is a right lower lobe nodule measuring 5 mm on image 44 of series 4. This is stable and has been stable on prior exams. Limited images of the upper abdomen are unremarkable. IMPRESSION: Lung RADS category 1S. Recommend 12 month follow-up low-dose chest CT. Modifier S: Moderate changes of centrilobular emphysema. Reviewed, Interpreted and Dictated by Jovan Guallpa MD Transcribed by Ashtyn Aldana Authenticated and [facility]
== END 2025-06-23 23:59 | disposition home or self-care (01) ==
LOC: RAD 14:19
PROVIDERS: PCP Nurse Practitioner Family; Visit Provider Internal Medicine Pulmonary Disease
DX: J43.2 Centrilobular emphysema (principal); J98.4 Other disorders of lung; R91.1 Solitary pulmonary nodule; R91.8 Other nonspecific abnormal finding of lung field; Z12.2 Encounter for screening for malignant neoplasm of respiratory organs; F17.210 Nicotine dependence, cigarettes, uncomplicated
CPT/HCPCS: 71271

== ENCOUNTER → 2025-07-10 14:08 | Outpatient (CLI) | payer OTHER, SELFPAY ==
--- OUTSIDE RECORDS SUMMARY | 2025-07-10 14:17 | XMS_ITS | Data Portability ---
Author Organization [facility] BERNA Ferguson [place] CLOSED Address [address] [place] [address] Assessment No assessment recorded. Plan of Treatment Reminders Order Date Submit Date Provider Last Modified By Organization Details Last Modified Time Details Appointments None recorded. Lab surgical pathology study 2018 019 [facility], [address] [place] [address], [address], 9 13:08:47 cytology, vaginal/cer vical 2018 019 yoel nd10 [facility], [address] [place] [address], [address], 9 13:14:22 HPV DNA, high-risk 2018 019 [facility], [address] [place] [address], [address], 9 17:56:01 RPR (rapid plasma reagin), serum 2018 019 [facility], [address] [place] [address], [address], 9 12:59:13 HIV (1+2) Ab screen, serum 2018 019 [facility], [address] [place] [address], [address], 9 09:41:10 hepatitis (A+B+C) panel, serum 2018 019 [facility], [address] [place] [address], [address], 9 19:55:06 hsv (1+2) Ab, serum 2018 019 [facility], [address] [place] [address], [address], 9 16:00:40 CT + NG RNA, PCR, unspecified specimen 2018 019 [facility], [address] [place] [address], [address], 9 17:55:35 cytology, vaginal/cer vical [address] [facility], [address] [place] [address], [address], 8 16:31:51 HPV DNA, high-risk 2017 018 [facility], [address] [place] [address], [address], 8 13:20:45 Referral None recorded. Procedures None recorded. Surgeries None recorded. Imaging MAMMO, screening, tomosynthes is, bilateral, w/ CAD [address] Radiology [facility], [address] [place] [address] , [place], [address], 9 09:03:25 MAMMO, screening, tomosynthes is, bilateral, w/ CAD [address] [facility]iology [facility], [address] [place] [address] , [place], [address], 8 16:33:56 Medication Orders None recorded. Patient TargetsNo targets recorded. Patient Instructions Encounter Date Encounter Id Patient Instructions Last Modified By Organization Details Last Modified Time 03/05/2018 [id number] body mass index: care instructions [email or web address] Not available 03/05/2018 10:58:34 Spent 15 total minutes with the patient today in counseling regarding information documented in my assessment and plan above. The time represents more than 50% of the encounter. Not available 03/05/2018 10:56:05 03/08/2019 [id number] body mass index: care instructions Not available 03/08/2019 11:59:27 Spent 20 total minutes with the patient today. Greater than 50% of this time was spent counseling/coord ination of care as documented in my assessment and plan above. [email or web address] Not available 03/08/2019 12:06:54 05/20/2019 [id number] reviewed pathology from labial mass. It was [...] rmed using the APTIM A HPV Assay ([employer] . This assay detec ts [...] AT: [facility] [address] [place] [address] SHEILA Rivera MD Not Available [facility] [address] [place], [address], 03/10/2018 13:20:45 03/05/20 18 03/05/2018 cytol ogy, vagin al/ce rvica l gynecologica l cytology procedure SEE BELOW [facility] Depar tment of Patho logy GYNEC OLOGI CAMRON CYTOL OGY REPOR T NAME: LOREN RODRIGUEZ PATHO LOGY NO.: [id number] 1 Copy to: [facility] E OF SPECI MEN: VAGIN AL-TH IN [...] s. Page 1 of 1 Not Available [facility] [address] [place], [address], 03/19/2018 09:25:33 03/08/20 19 03/08/2019 hepat itis (A+B+ C) panel , serum hepatitis B surface Ag NON-RE ACTIVE non-re active normal Not Available [facility] [address] [place], [address], 03/11/2019 12:10:38 03/08/2003/11/2019 hepat itis (A+B+ C) panel , serum hepatitis A Ab, IgM NON-RE ACTIVE non-re active normal TEST PERFO RMED AT: [facility] [address] [place] [address] SHEILA Rivera MD Not Available [facility] [address] [place] [address], [address], 03/11/2019 12:10:38 03/08/2003/11/2019 hepat itis (A+B+ C) panel , serum hepatitis B core Ab,IgM NON-RE ACTIVE non-re active normal TEST PERFO RMED AT: [facility] [address] [place] [address] SHEILA Rivera MD Not Available [facility] [address] [place] [address], [address], 03/11/2019 12:10:38 03/08/2003/11/2019 hepat itis (A+B+ C) panel , serum hcab, reflex viral RNA qt NON-RE ACTIVE non-re active normal Not Available [facility] [address] [place] [address], [address], 03/11/2019 12:10:38 03/08/2003/11/2019 hepat itis (A+B+ C) panel , serum hcab cutoff 0.02 <1.00 normal HCV antib lacey was non-r eacti ve. There is no labor atory evide nce of HCV infec tion. In most cases , no furth er actio n is requi red. Howev er, if recen t HCV expos ure is suspe cted, a test for HCV RNA (test code 19846 ) is sugge sted. For addit ional infor matio n pleas e refer to http: //[facility].c om/fa q/FAQ 22v1 (This link is being provi ded for infor matio nal/ educa gisell l purpo ses only. ) TEST PERFO RMED AT: [facility] [address] [place] [address] SHEILA Rivera MD Not Available [facility] [place], [address], 03/11/2019 12:10:38 03/08/20 19 03/11/2019 HIV (1+2) [...] the state law prohi bits you from ilzy chao any furth er discl osure of [...] matio n pleas e refer to http: //[facility] gn[facility].c om/fa q/FAQ 106 (This link is being provi ded for infor matio nal/ educa gisell l purpo ses only. ) The perfo rmanc e of this assay has not been clini sheri valid ated in patie nts less than 2 years old. TEST PERFO RMED AT: [facility] [address] [place] [address] SHEILA Rivera MD Not Available [facility] [address] [place], [address], 03/11/2019 09:41:10 03/08/2003/11/2019 RPR (rapi d plasm a reagi n), serum RPR NON-RE ACTIVE nonrea ctive normal Not Available [facility] [address] [place], [address], 03/11/2019 12:59:13 03/08/2003/11/2019 hsv (1+2) Ab, serum hsv 1 IgG 32.80 index high Not Available [facility] [address] [place], [address], 03/15/2019 08:10:03 03/08/2003/11/2019 hsv (1+2) Ab, serum [...] PERFO RMED AT: [facility] [place] [address] [place] [address] SHEILA Rivera MD Not Available [facility] [address] [place], [address], 03/15/2019 08:10:03 03/08/20 19 03/14/2019 hsv (1+2) Ab, serum hsv 1 IgM POSITI VE negati ve abnormal Not Available [facility] [address] [place] [address], [address], 03/15/2019 08:10:03 03/08/20 19 03/14/2019 hsv (1+2) [...] stics have been deter mined by [facility] [employer] [facility]. Perfo rmanc e sravani cteri stics refer to the yaritza tical perfo rmanc e of the test. TEST PERFO RMED AT: [facility] [address] [facility] [place] [address] SHEILA Rivera MD Not Available [facility] [address] [place] [address], [address], 03/15/2019 08:10:03 03/08/2003/14/2019 hsv (1+2) Ab, serum hsv 2 IgM NEGATI VE negati ve normal TEST PERFO RMED AT: [facility] [address] [place] [address] SHEILA Rivera MD Not Available [facility] [address] [place] [address], [address], 03/15/2019 08:10:03 03/08/2003/11/2019 CT + NG RNA, PCR, unspe cifie d speci men chlamydia trachomatis NOT DETECT ED not detect ed normal Not Available [facility] [address] [place] [address], [address], 03/11/2019 17:55:35 03/08/20 19 03/11/2019 CT + NG RNA, PCR, unspe cifie d speci men N. gonorrhoeae NOT DETECT ED not detect ed normal Not Available [facility] [address] [place], [address], 03/11/2019 17:55:35 03/08/20 19 03/11/2019 CT + [...] Diagn ostic s. TEST PERFO RMED AT: [facility] [address] [address] SHEILA Rivera MD Not Available [facility] [address] [place], [address], 03/11/2019 17:55:35 03/08/2003/11/2019 HPV DNA, high- risk [...] purpo ses. TEST PERFO RMED AT: [facility] [employer] [facility] [address] [address] SHEILA Rivera MD Not Available [facility] [address] [place], [address], 03/11/2019 17:56:01 03/08/20 19 03/08/2019 cytol ogy, vagin al/ce rvica l gynecologica l cytology procedure SEE [facility]OW [facility] Depar tment of Patho logy GYNEC OLOGI CAMRON CYTOL OGY REPOR T NAME: LOREN RODRIGUEZ PATHO LOGY NO.: [id number] Copy to: [facility] E OF SPECI MEN: VAGIN AL-TH IN [...] s. Page 1 of 1 Not Available [facility] [address] [place], [address], 03/18/2019 10:31:03 05/13/20 19 05/13/2019 surgi camron patho logy study surgical SEE BELOW Depar tment of Patho logy Surgi camron Patho logy Repor t NAME: LOREN RODRIGUEZ PATH. :[id number] Copy to: Diagn osis: Left labia l [...] 13:07 Page 1 of 1 Not Available [facility] [address] [place] [address], [place], [address], 05/15/2019 13:08:47 Result Notes None recorded. Problems No Known Problems Procedures Surgical History Date Name Laterality Status Provider Name and Address Organization Details Recorded Time 05/13/20 19 Excision Genital Lesion completed JASMYNE DUNBAR, DO [address] [place], [address], [facility] 05/13/2019 11:50:23 03/08/20 19 Pap Smear collection completed LASHAWN GR, DIVER TENDER [address] [place], [address], [facility] 03/08/2019 12:04:29 03/08/20 19 Date of Last Pap Smear completed [facility] 03/08/2019 10:45:25 03/05/20 18 Pap Smear collection completed LASHAWN GR, DIVER TENDER [address] [place], [address], [facility] 03/05/2018 10:54:05 05/26/20 17 Date of Last Colonoscopy completed [facility] 03/08/2019 10:46:07 Cholecystectomy completed [facility] 03/05/2018 09:04:42 Hysterectomy/cayden e vagina completed [facility] 03/05/2018 09:04:55 Imaging Results None recorded. Procedure Notes None recorded. Medical Equipment None Reported. Allergies Allergen ID Allergen Name Allergen Category Reaction Reaction Severity Criticality Documentation Date Start Date Code Code System Note Provider Name and Address Organization Details Recorded Time 298420 codeine medicatio n Not available Not available Not available 08/19/20162010 6929 RxNorm Comme nt: Creat ed By: Diana Park ed Date: 2010 11:05 :12 AM; Not Available [facility] 6 06:06:32 Medications Name Sig Start [...] Updated DateTime 03/05/2018 149.86 cm 27.5 kg/m2 18161.56 g 100/70 mm[Hg] Lidia Vega [facility] 03/05/2018 10:20:32 Date Recorded Body height Body mass index (BMI) Body weight Systolic And Diastolic Provider Name and Address Organization Details Last Updated DateTime 03/08/2019 149.86 cm 25.4 kg/m2 96960.64 g 136/84 mm[Hg] Jasmyne Anthony [facility] 03/08/2019 10:44:14 Date Recorded Body height Body mass index (BMI) Body weight Systolic And Diastolic Provider Name and Address Organization Details Last Updated DateTime 05/13/2019 149.86 cm 26 kg/m2 45642.62 g 100/70 mm[Hg] Isabella Alvares [facility] 05/13/2019 09:02:54 Date Recorded Body height Body mass index (BMI) Body weight Systolic And Diastolic Provider Name and Address Organization Details Last Updated DateTime 05/20/2019 149.86 cm 26 kg/m2 92303.62 g 110/74 mm[Hg] Isabella Alvares [facility] 05/20/2019 09:33:42 Social History Question Answer Notes LastModified by Organizat ion Details LastModified Time Tobacco Smoking Status Current Every Day [facility] 03/05/2018 10:17:26 What Is Your Level Of Caffeine Consumption? Moderate [email or web address] Information not available 03/05/2018 What Was The Date Of Your Most Recent Tobacco Screening? 03/08/2019 Information not available 11/12/2019 How Much Tobacco Do You Smoke? 1.5 PPD [email or web address] Information not available 03/05/2018 Has Tobacco Cessation Counseling Been Provided? Yes [email or web address] Information not available 03/05/2018 On What Date Was Tobacco Cessation Counseling Provided? 03/08/2019 [email or web address] Information not available 03/08/2019 Do You Have Symptoms Associated With Zika Virus (fever, Rash, Joint Pain, Or Conjunctivitis) ? No [email or web address] Information not available 03/05/2018 Have You Recently (within The Last 12 Weeks, Or During A Current ) Traveled To Or Lived In A Zika-affected Area? No [email or web address] Information not available 03/05/2018 Sex: Unknown Functional Status Question Answer Note LastModified by Organization D etails LastModified Time What is your level of alcohol consumption? None [email or web address] Information not available 03/05/2018 Mental Status None recorded. Family History Relationship Description Onset Age of this Age Resolved Age Notes LastModified by Organization Details LastModified Time Unspecified Relation Heart disease Acute Myocar dial Infarc tion [email or web address] Not available 03/05/2018 09:02:52 Unspecified Relation Hyperlipidem ia [email or web address] Not available 03/05 09:03:40 Unspecified Relation Arthritis [email or web address] Not available 02/23 09:03:54 Unspecified Relation Glaucoma [email or web address] Not available 03/05 09:04:03 Unspecified Relation Disorder of thyroid gland [email or web address] Not available 03/05 09:04:11 Maternal Grandfather Diabetes mellitus [email or web address] Not available 03/05 10:16:34 Mother Family history of malignant neoplasm Liver, Lung, colon, Uterin e [email or web address] Not available 03/05/2018 10:17:11 Mother Hypertensive disorder [email or web address] Not available 03/05 10:16:38 Mother Malignant neoplasm of colon [email or web address] Not available 2018 10:47:04 Medical History Condition Response Heart Problems N Other Y Hyperlipidemia N Cancer Y Thyroid Problems N Stroke N Lung Disease N Depression Y Hoarseness N Immune System Disorder N Shortness of [...] Diagnosis SNOMED-CT Code Diagnosis ICD10 Code Diagnosis IMO Codes Diagnosis Note [id number] QM_IMPORTS QM-LAB IMPORTS [place] 5756909-180 5 12/27/2016 00:10:42 12/27/2016 00:10:42 [id number] TEODORA P[facility] [address] [place] [address] 03/05/2018 10:04:24 03/05/2018 12:53:43 Gynecologic examination 57755638 Z01.419 Discussed SBEs Screening for malignant neoplasm of breast 726011549 Z12.31 History of malignant neoplasm of cervix 911552850 Z85.41 Pap smear pending Body mass index 25-29 - overweight 341994963 Z68.27 Handout given with diet and exercise recommenda tions Cyst of vulva 43309534 N 90.7 Discussed Epsom salts baths, warm compresses , Dial soap If become large or bothersome to RTC [id number] TEODORA [place] [address] [place] [address] 03/08/2019 10:13:07 03/08/2019 12:04:51 Gynecologic examination 14640555 Z01.419 Discussed SBEs Screening for malignant neoplasm of breast 267404503 Z12.31 Stressed importance of annual screening History of malignant neoplasm of cervix 947527831 Z85.41 Pap smear and HPV pending Body mass index 25-29 - overweight 765034959 Z68.27 Handout given with diet and exercise recommenda tions Cyst of vulva 76598068 N 90.7 Attempted I&D today but cyst w/o purulent d/c - tissue noted after incision made Good hemostasis with silver nitrate F/u with Dr. Coley for removal Venereal d isease screening 510769295 Z11.3 Mastodynia of bilateral breasts 1347060255 4942489 N64.4 Discussed monthly SBEs Decrease caffeine Vit E and or evening primrose oil Adnexal tenderness 17124 3002 R10.2 Discussed exam findings States pain always occurs monthly x 1 wk then resolves spontaneou sly Present since total hyst If pain does not resolve, or if becomes bothersome , must call for pelvic u/s for further evaluation - pt v/u [id number] DO JOSTIN [place] [address] [place] [address] 05/13/2019 08:54:25 05/13/2019 09:54:59 Labial cyst 504037714 N90.7 RTO 2 days to evaluate stitches [id number] DO JOSTIN [place] [address] [place] [address] 05/20/2019 09:17:05 05/20/2019 10:10:26 Health Concerns Section Related Observation LastModified by Organization Detai ls LastModified Time None Recorded Concern Status LastModified by Organization Details LastModified Time None Recorded Advance Directives Directive None Recorded Payers Insurance Date Sequence Insurance Name Policy Number Policy Lamb Covered Member ID Lamb Member ID Guarantor Name 08/19/2020 1 [employer] [id number] Linda Mccormick [id number] Linda Mccormick 08/19/2020 1 [place] [id number] Linda Mccormick [id number] Linda Mccormick Notes Date Note Type Note Provider Name and Address Organization Details Recorded Time 03/05/2018 text/html Presents for annual exam and pap smear S/p total hyst d/t cervical cancer Ovaries remain Mother with uterine and colon cancer Pt has never had genetic testing C/o bumps on the vulva - non tender and no changes since 1st appeared several months ago LASHAWN GR, DIVER TENDER [address] [place], [address], [facility] 03/05/2018 17:02:01 03/08/2019 text/html Presents for annual exam and pap smear S/p total hyst [...] today just to be sure LASHAWN GR, DIVER TENDER [address] [place], [address], [facility] 03/08/2019 17:55:55 05/13/2019 text/html Pt is a 58yo P3023 who is here today because she has a left labial cyst . She saw Lashawn WOODS in February and she tried to I&D the cyst, but didn't get much fluid out. It looks like the cyst is an infected condyloma and not actually part of the labia. Very tender. JASMYNE DUNBAR DO [address] [place], [address], [facility] 05/13/2019 11:52:41 05/20/2019 text/html Pt is a 58yo who was here last week for removal of a left labial growth. Pt has healed fine, no complaints. Minimal bleeding. JASMYNE DUNBAR DO [address] [place], [address], [facility] 05/20/2019 17:25:27 OBGyn Episode No OBEpisode recorded.
--- OUTSIDE RECORDS SUMMARY | 2025-07-10 14:17 | XMS_ITS | Clinical Summary ---
Author Organization Healthcare Address [address] [place] [address] Care Team Providers Care Deburring Machine Operator Name Role Phone MonicamarcSureshEloisenaseem Butts APRN Primary Care Provider [phone] Family History Medical History Relation Name Comments [...] of Treatment Not on file Insurance [facility] [id number] ANTHEM Care Teams Deburring Machine Operator Relationship Specialty Start Date End Date Eloise Wang APRN [address] [place] [address] PCP - General 02/05/21
--- OUTSIDE RECORDS SUMMARY | 2025-07-10 14:17 | XMS_ITS | Clinical Summary ---
Author Organization [facility] Address [address] [place] [address] Care Team Providers Care Cream Dumper Name Role Phone Wendy Lala TEODORA Primary Care Provider + [phone] Allergies Active Allergy Reactions Criticality Noted Date [...] 04/25/2025 LUNG CANCER SCREENING Discontinued 07/12/[address] [facility] PPO Care Teams Cream Dumper Relationship Specialty Start Date End Date Wendy Lala APRN PCP - General Internal Medicine 06/07/16
== END ==
LOC: SL 14:09
PROVIDERS: PCP Nurse Practitioner Family; Visit Provider Internal Medicine Pulmonary Disease
DX: R06.83 Snoring (principal)
CPT/HCPCS: 94762

== ENCOUNTER → 2025-09-04 20:15 | Outpatient (CLI) | payer OTHER, SELFPAY ==
--- OUTSIDE RECORDS SUMMARY | 2025-09-04 20:19 | XMS_ITS | Clinical Summary ---
[facility] Address [address] [place] [address] Care Team Providers Care Glass Processing Worker Name Role Phone Wendy Lala TEODORA Primary Care Provider + [phone] Allergies Active Allergy Reactions Criticality Noted Date [...] 04/25/2025 LUNG CANCER SCREENING Discontinued 07/12/2019 Insurance [facility] PPO Care Teams Glass Processing Worker Relationship Specialty Start Date End Date Wendy Lala APRN PCP - General Internal Medicine 06/07/16
--- OUTSIDE RECORDS SUMMARY | 2025-09-04 20:19 | XMS_ITS | Clinical Summary ---
Author Organization Healthcare Address [address] [place] [address] Care Team Providers Care Security Shift Manager Name Role Phone MonicamarcSureshEloisenaseem Butts APRN Primary Care Provider [phone] Family History Medical History Relation Name Comments [...] Treatment Not on file Insurance [facility] [id number] ANTHEM Care Teams Security Shift Manager Relationship Specialty Start Date End Date Eloise Wang APRN [address] [place] [address] PCP - General 02/05/21
== END ==
LOC: SL 20:17
PROVIDERS: PCP Nurse Practitioner Family; Visit Provider Internal Medicine Pulmonary Disease
DX: G47.61 Periodic limb movement disorder (principal); G47.36 Sleep related hypoventilation in conditions classified elsewhere; G47.30 Sleep apnea, unspecified
CPT/HCPCS: 95810